=== PATIENT | female | born 1945 | race Caucasian/White ===

== ENCOUNTER → 2017-12-15 02:47 | Outpatient (CLI) | payer MEDICARE, BC, SELFPAY ==
[2017-12-15 10:40] LABS: HCT 38.4 % (36.0-46.0); HGB 12.8 g/dL (12.0-15.5); Mean Corp. HGB Concentration 33.3 g/dL (32.0-36.0); Mean Corpuscular Hemoglobin 30.4 pg (27.0-33.0); Mean Corpuscular Volume 91.2 fL (80-95); Mean Platelet Volume 8.5 fL (8.0-11.0); Platelet Count 352 x1000/uL (130-400); RBC 4.21 m/cumm (4.00-5.20); RBC Distribution Width 13.4 % (11.7-14.6)
[2017-12-15 10:40] LABS: Bilirubin Negative (Negative); Blood Negative (Negative); Clarity Clear; Glucose Negative (Negative); Ketones Negative (Negative); Leukocyte Esterase Negative (Negative); Nitrite Negative (Negative); Specific Gravity 1.015 (1.005-1.025); Urobilinogen 0.2 EU/dL (Up TO 0.2)
[2017-12-15 11:02] LABS: PROTEIN 39.5 mg/dL
[2017-12-15 11:05] LABS: COMMENT (LAB VIEW ONLY) 59.22 mg/dL; Prot/Crea Ur Ratio 0.66
[2017-12-15 11:12] LABS: Cholesterol 175 mg/dL (50-200)
[2017-12-15 11:18] LABS: ALT 22 U/L (12-78); AST 25 U/L (15-37); Albumin 3.5 g/dL (3.4-5.0); Alkaline Phosphatase 68 U/L (46-116); Anion Gap 4.4 mmol/L (3-11); BUN 23 mg/dL (7-18); Bilirubin, Total 0.3 mg/dL (0.2-1.0); CO2 30.6 mmol/L (21.0-32.0); CREATININE 1.03 mg/dL (0.55-1.02); Calcium 9.2 mg/dL (8.5-10.1); Chloride 100 mmol/L (98-107); Estimated GFR 52.82 (mL/min/1.73m2); Glucose 83 mg/dL (70-100); Magnesium 1.4 mg/dL (1.8-2.4); Potassium 4.8 mmol/L (3.5-5.1); Sodium 135 mmol/L (136-145); Total Protein 6.9 g/dL (6.4-8.2); Uric Acid 5.4 mg/dL (2.6-6.0)
[2017-12-15 11:42] LABS: Bacteria Negative HPF (Negative); C & S Indicated? No; Casts Negative LPF (Negative); Crystals Negative HPF (Negative); Epithelial Cells Few HPF (Negative); Mucus Negative (Negative); RBC 0-2 (0-2); WBC 0-2 HPF (0-5)
== END ==
PROVIDERS: PCP Internal Medicine; Visit Provider Internal Medicine Nephrology
DX: Z94.0 Kidney transplant status (principal); Z79.899 Other long term (current) drug therapy
CPT/HCPCS: 36415; 80053; 85027; 80197; 81003; 81015; 82465; 82565; 83735; 84100; 84156; 84550

== ENCOUNTER 2018-01-19 18:40 | Outpatient (REF) | payer MEDICARE, BC, SELFPAY ==
[2018-01-19 19:47] LABS: TSH 0.51 uIU/mL (0.358-3.74)
== END 2018-01-19 19:00 ==
LOC: NCHCN 18:40
PROVIDERS: PCP Internal Medicine; Visit Provider Internal Medicine
DX: E04.0 Nontoxic diffuse goiter (principal); N18.6 End stage renal disease; K50.10 Crohn's disease of large intestine without complications; M54.5 Low back pain
CPT/HCPCS: 84443

== ENCOUNTER 2018-03-22 01:44 | Outpatient (CLI) | payer MEDICARE, BC, SELFPAY ==
[2018-03-22 10:16] LABS: HCT 37.6 % (36.0-46.0); HGB 12.8 g/dL (12.0-15.5); Mean Corpuscular Hemoglobin 30.8 pg (27.0-33.0); Mean Corpuscular Volume 90.6 fL (80-95); Mean Platelet Volume 8.5 fL (8.0-11.0); Platelet Count 317 x1000/uL (130-400); RBC 4.15 m/cumm (4.00-5.20); RBC Distribution Width 13.4 % (11.7-14.6)
[2018-03-22 10:49] LABS: Bilirubin Negative (Negative); Blood Negative (Negative); Clarity Clear; Glucose Negative (Negative); Ketones Negative (Negative); Leukocyte Esterase Trace (Negative); Nitrite Negative (Negative); Urobilinogen 0.2 EU/dL (Up TO 0.2)
[2018-03-22 11:05] LABS: Cholesterol 162 mg/dL (50-200)
[2018-03-22 11:06] LABS: ALT 27 U/L (12-78); AST 29 U/L (15-37); Albumin 3.5 g/dL (3.4-5.0); Alkaline Phosphatase 70 U/L (46-116); Anion Gap 8.5 mmol/L (3-11); BUN 26 mg/dL (7-18); Bilirubin, Total 0.3 mg/dL (0.2-1.0); CO2 29.5 mmol/L (21.0-32.0); CREATININE 0.92 mg/dL (0.55-1.02); Calcium 9.4 mg/dL (8.5-10.1); Chloride 98 mmol/L (98-107); Glucose 84 mg/dL (70-100); Magnesium 1.5 mg/dL (1.8-2.4); PHOSPHORUS 3.5 mg/dL (2.6-4.7); Potassium 5.1 mmol/L (3.5-5.1); Sodium 136 mmol/L (136-145); Total Protein 6.8 g/dL (6.4-8.2); Uric Acid 5.9 mg/dL (2.6-6.0)
[2018-03-22 11:10] LABS: Bacteria Rare HPF (Negative); Casts Negative LPF (Negative); Crystals Negative HPF (Negative); Epithelial Cells Moderate HPF (Negative); Mucus Negative (Negative); Other Cells Rare Renal (Negative); RBC 0-2 (0-2)
[2018-03-22 11:11] LABS: C & S Indicated? No/Sq. Contamination
[2018-03-22 11:51] LABS: PROTEIN 12.5 mg/dL
[2018-03-22 11:57] LABS: COMMENT (LAB VIEW ONLY) 31.33 mg/dL; Prot/Crea Ur Ratio 0.39
[2018-03-23 15:14] LABS: Tacrolimus 7.2 ng/ml
== END 2018-03-22 02:04 ==
PROVIDERS: PCP Internal Medicine; Visit Provider Internal Medicine Nephrology
DX: Z92.0 Personal history of contraception (principal); Z79.899 Other long term (current) drug therapy
CPT/HCPCS: 36415; 80053; 85027; 80197; 81003; 81015; 82465; 82565; 83735; 84100; 84156; 84550

== ENCOUNTER 2018-05-25 01:49 | Outpatient (CLI) | payer MEDICARE, BC, SELFPAY ==
[2018-05-26 13:09] LABS: Tacrolimus 8.8 ng/ml
== END 2018-05-25 02:09 ==
PROVIDERS: PCP Internal Medicine; Visit Provider Internal Medicine Nephrology
DX: Z94.0 Kidney transplant status (principal); Z79.899 Other long term (current) drug therapy
CPT/HCPCS: 36415; 80197

== ENCOUNTER 2018-06-01 02:31 | Outpatient (CLI) | payer MEDICARE, BC, SELFPAY ==
[2018-06-02 13:25] LABS: Tacrolimus 10.6 ng/ml
== END 2018-06-01 02:51 ==
PROVIDERS: PCP Internal Medicine; Visit Provider Internal Medicine Nephrology
DX: Z94.0 Kidney transplant status (principal); Z79.899 Other long term (current) drug therapy
CPT/HCPCS: 36415; 80197

== ENCOUNTER 2018-06-15 00:58 | Outpatient (CLI) | payer MEDICARE, BC, SELFPAY ==
[2018-06-16 13:15] LABS: Tacrolimus 8.8 ng/ml
== END 2018-06-15 01:18 ==
PROVIDERS: PCP Internal Medicine; Visit Provider Internal Medicine Nephrology
DX: Z94.0 Kidney transplant status (principal); Z79.899 Other long term (current) drug therapy
CPT/HCPCS: 36415; 80197

== ENCOUNTER 2018-07-06 02:06 | Outpatient (CLI) | payer MEDICARE, BC, SELFPAY | END 2018-07-06 02:26 | PROVIDERS: PCP Internal Medicine; Visit Provider Internal Medicine Nephrology | DX: Z94.0 Kidney transplant status (principal); Z79.899 Other long term (current) drug therapy | CPT/HCPCS: 36415; 80197 ==

== ENCOUNTER 2018-07-21 02:00 | Outpatient (CLI) | payer MEDICARE, BC, SELFPAY ==
[2018-07-22 12:11] LABS: Tacrolimus 4.6 ng/ml
== END 2018-07-21 02:20 ==
PROVIDERS: PCP Internal Medicine; Visit Provider Internal Medicine Nephrology
DX: Z94.0 Kidney transplant status (principal); Z79.899 Other long term (current) drug therapy
CPT/HCPCS: 36415; 80197

== ENCOUNTER 2018-08-07 01:46 | Outpatient (CLI) | payer MEDICARE, BC, SELFPAY ==
[2018-08-07 09:16] LABS: HCT 38.2 % (36.0-46.0); HGB 12.9 g/dL (12.0-15.5); Mean Corp. HGB Concentration 33.8 g/dL (32.0-36.0); Mean Corpuscular Hemoglobin 31.2 pg (27.0-33.0); Mean Corpuscular Volume 92.3 fL (80-95); Mean Platelet Volume 8.4 fL (8.0-11.0); Platelet Count 324 x1000/uL (130-400); RBC 4.14 m/cumm (4.00-5.20); RBC Distribution Width 14.1 % (11.7-14.6); White Blood Cell Count 6.12 k/cumm (4.4-10.8)
[2018-08-07 10:34] LABS: ALT 33 U/L (12-78); AST 30 U/L (15-37); Albumin 3.5 g/dL (3.4-5.0); Alkaline Phosphatase 67 U/L (46-116); Anion Gap 9.9 mmol/L (3-11); BUN 23 mg/dL (7-18); Bilirubin, Total 0.6 mg/dL (0.2-1.0); CO2 28.1 mmol/L (21.0-32.0); CREATININE 0.94 mg/dL (0.55-1.02); Chloride 101 mmol/L (98-107); Estimated GFR 58.53 (mL/min/1.73m2); Glucose 72 mg/dL (70-100); Magnesium 1.4 mg/dL (1.8-2.4); PHOSPHORUS 3.6 mg/dL (2.6-4.7); Sodium 139 mmol/L (136-145); Total Protein 6.8 g/dL (6.4-8.2); Uric Acid 5.2 mg/dL (2.6-6.0)
[2018-08-07 13:13] LABS: COMMENT (LAB VIEW ONLY) 19.15 mg/dL; PROTEIN 21.3 mg/dL; Prot/Crea Ur Ratio 1.11
[2018-08-07 13:15] LABS: Cholesterol 209 mg/dL (50-200)
[2018-08-07 15:08] LABS: Bilirubin Negative (Negative); Blood Negative (Negative); Clarity Clear; Glucose Negative (Negative); Ketones Negative (Negative); Leukocyte Esterase Negative (Negative); Nitrite Negative (Negative); Specific Gravity 1.015 (1.005-1.025); Urobilinogen 0.2 EU/dL (Up TO 0.2); pH 7.5 (5-8)
[2018-08-07 15:23] LABS: Bacteria Negative HPF (Negative); C & S Indicated? No; Casts Negative LPF (Negative); Crystals Negative HPF (Negative); Epithelial Cells Few HPF (Negative); Mucus Negative (Negative); RBC 0-2 (0-2); WBC 0-2 HPF (0-5)
[2018-08-08 12:50] LABS: Tacrolimus 5.2 ng/ml
== END 2018-08-07 02:06 ==
PROVIDERS: PCP Internal Medicine; Visit Provider Internal Medicine Nephrology
DX: Z94.0 Kidney transplant status (principal); Z79.899 Other long term (current) drug therapy
CPT/HCPCS: 36415; 80053; 85027; 80197; 81003; 81015; 82465; 82565; 83735; 84100; 84156; 84550

== ENCOUNTER 2018-08-21 11:26 | Outpatient (REF) | payer MEDICARE, BC, SELFPAY ==
--- NOTE | 2018-08-21 10:30 | PAPFT_PTH ---
PATIENT: Sonam Herring LOC: [facility] U#:[id number] AGE/SX: 73/F ROOM: RE08/21/[address]: MARCI Tolentino : 1945 BED: DIS: 08/21/2018 SPEC #: [id number] RECD: 08/21/18 17:30 STATUS: ALEXUS REQ #: [id number] RACHANA: 08/21/18 10:[address]: Kelley Kuhn DEPT: [facility] Cytology RECD BY: Sidra Merrill ENTERED: 08/21/18 17:31 SP TYPE: PAPFT OTHR DR: Missael Ordaz Tissues: 1 - CX/ENDOCX FOR PAP SMEARS Procedures: PAP THIN PREP/UVM Screening Comments: [id number]
== END 2018-08-21 11:46 ==
LOC: LBN 11:26
PROVIDERS: PCP Internal Medicine; Visit Provider Nurse Practitioner Family
DX: Z12.4 Encounter for screening for malignant neoplasm of cervix (principal)
CPT/HCPCS: 88142

== ENCOUNTER 2018-09-04 00:23 | Outpatient (CLI) | payer MEDICARE, BC, SELFPAY ==
--- NOTE | 2018-09-04 09:00 | DI.MAMMO_ITS ---
SYMPTOM/DIAGNOSIS: SCREENING MAMMOGRAMS: Mammograms were interpreted according to the usual protocol including computer analysis with CAD system, tomosynthesis and C view imaging. Comparison is made with exams from 3611-9983. The breasts are composed of fatty density tissue, breast density, Category A. No suspicious masses or suspicious microcalcifications are seen. There has been no significant change. IMPRESSION: Category 1, negative mammogram. Yearly screening mammography is recommended. [facility] ASSESSMENT OF FINDINGS: Negative. Category 1. Patient will receive a letter notifying them of these results. BI-RAD category A. The breasts are almost entirely fatty.
== END 2018-09-04 00:43 ==
PROVIDERS: PCP Internal Medicine; Visit Provider Nurse Practitioner Family
DX: Z12.31 Encounter for screening mammogram for malignant neoplasm of breast (principal)
CPT/HCPCS: 77063; 77067

== ENCOUNTER 2018-10-09 15:08 | Outpatient (REF) | payer MEDICARE, BC, SELFPAY | END 2018-10-09 15:28 | LOC: NCHCN 15:08 | PROVIDERS: PCP Internal Medicine; Visit Provider Nurse Practitioner Family | DX: N39.0 Urinary tract infection, site not specified (principal) | CPT/HCPCS: 87086 ==

== ENCOUNTER 2018-11-09 01:59 | Outpatient (CLI) | payer MEDICARE, BC, SELFPAY ==
[2018-11-09 10:32] LABS: HCT 39.4 % (36.0-46.0); HGB 13.5 g/dL (12.0-15.5); Mean Corp. HGB Concentration 34.3 g/dL (32.0-36.0); Mean Corpuscular Hemoglobin 31.1 pg (27.0-33.0); Mean Corpuscular Volume 90.8 fL (80-95); Mean Platelet Volume 8.6 fL (8.0-11.0); Platelet Count 303 x1000/uL (130-400); RBC 4.34 m/cumm (4.00-5.20); RBC Distribution Width 13.9 % (11.7-14.6); White Blood Cell Count 7.24 k/cumm (4.4-10.8)
[2018-11-09 10:34] LABS: Bilirubin Negative (Negative); Blood Negative (Negative); Clarity Clear (Clear); Glucose Negative (Negative); Ketones Negative (Negative); Leukocyte Esterase Trace (Negative); Nitrite Negative (Negative); Urobilinogen 0.2 EU/dL (Up TO 0.2)
[2018-11-09 10:45] LABS: Bacteria Few HPF (Negative); Casts Negative LPF (Negative); Crystals Negative HPF (Negative); Epithelial Cells Many HPF (Negative); Mucus Negative (Negative); RBC Negative (0-2)
[2018-11-09 10:46] LABS: C & S Indicated? No/Sq. Contamination
[2018-11-09 11:00] LABS: PROTEIN 19.3 mg/dL
[2018-11-09 11:02] LABS: COMMENT (LAB VIEW ONLY) 29.13 mg/dL; Prot/Crea Ur Ratio 0.66
[2018-11-09 11:29] LABS: Cholesterol 206 mg/dL (50-200)
[2018-11-09 11:31] LABS: ALT 27 U/L (12-78); AST 21 U/L (15-37); Albumin 3.7 g/dL (3.4-5.0); Alkaline Phosphatase 58 U/L (46-116); Anion Gap 8.8 mmol/L (3-11); BUN 21 mg/dL (7-18); Bilirubin, Total 0.4 mg/dL (0.2-1.0); CO2 29.2 mmol/L (21.0-32.0); CREATININE 0.95 mg/dL (0.55-1.02); Calcium 9.8 mg/dL (8.5-10.1); Chloride 97 mmol/L (98-107); Estimated GFR 57.82 (mL/min/1.73m2); Glucose 86 mg/dL (70-100); Magnesium 1.6 mg/dL (1.8-2.4); PHOSPHORUS 3.5 mg/dL (2.6-4.7); Potassium 4.6 mmol/L (3.5-5.1); Sodium 135 mmol/L (136-145); Total Protein 7.1 g/dL (6.4-8.2); Uric Acid 4.9 mg/dL (2.6-6.0)
[2018-11-09 11:39] LABS: FREE T4 1.07 ng/dL (0.76-1.46); TSH 5.06 uIU/mL (0.358-3.74)
[2018-11-10 13:47] LABS: Tacrolimus 5.1 ng/ml
== END 2018-11-09 02:19 ==
PROVIDERS: PCP Internal Medicine; Visit Provider Internal Medicine Nephrology
DX: Z94.0 Kidney transplant status (principal); Z79.899 Other long term (current) drug therapy; E04.8 Other specified nontoxic goiter
CPT/HCPCS: 36415; 80053; 80197; 85027; 81003; 81015; 82465; 82565; 83735; 84100; 84156; 84439; 84443; 84550

== ENCOUNTER 2019-02-08 01:18 | Outpatient (CLI) | payer MEDICARE, BC, SELFPAY ==
[2019-02-08 10:25] LABS: HGB 13.4 g/dL (12.0-15.5); Mean Corp. HGB Concentration 34.4 g/dL (32.0-36.0); Mean Corpuscular Hemoglobin 31.2 pg (27.0-33.0); Mean Corpuscular Volume 90.9 fL (80-95); Mean Platelet Volume 8.4 fL (8.0-11.0); Platelet Count 341 x1000/uL (130-400); RBC 4.29 m/cumm (4.00-5.20); White Blood Cell Count 6.06 k/cumm (4.4-10.8)
[2019-02-08 10:51] LABS: Bilirubin Negative (Negative); Blood Negative (Negative); Clarity Clear (Clear); Glucose Negative (Negative); Ketones Negative (Negative); Leukocyte Esterase Negative (Negative); Nitrite Negative (Negative); Specific Gravity 1.015 (1.005-1.025); Urobilinogen 0.2 EU/dL (Up TO 0.2); pH 7.5 (5-8)
[2019-02-08 11:43] LABS: Epithelial Cells Few HPF (Negative); RBC 0-2 (0-2); WBC Negative HPF (0-5)
[2019-02-08 11:44] LABS: Bacteria Negative HPF (Negative); C & S Indicated? No; Casts Negative LPF (Negative); Crystals Negative HPF (Negative); Mucus Negative (Negative); Other Cells Rare Renal (Negative)
[2019-02-08 11:46] LABS: PROTEIN 22.3 mg/dL
[2019-02-08 11:49] LABS: ALT 24 U/L (14-59); AST 25 U/L (15-37); Albumin 3.6 g/dL (3.4-5.0); Alkaline Phosphatase 62 U/L (46-116); Anion Gap 6.1 mmol/L (3-11); BUN 23 mg/dL (7-18); Bilirubin, Total 0.4 mg/dL (0.2-1.0); CO2 28.9 mmol/L (21.0-32.0); CREATININE 1.01 mg/dL (0.55-1.02); Calcium 9.2 mg/dL (8.5-10.1); Chloride 101 mmol/L (98-107); Estimated GFR 53.88 (mL/min/1.73m2); Glucose 74 mg/dL (70-100); Magnesium 1.6 mg/dL (1.8-2.4); PHOSPHORUS 3.6 mg/dL (2.6-4.7); Potassium 5.4 mmol/L (3.5-5.1); Sodium 136 mmol/L (136-145); Total Protein 6.8 g/dL (6.4-8.2); Uric Acid 5.1 mg/dL (2.6-6.0)
[2019-02-08 11:52] LABS: COMMENT (LAB VIEW ONLY) 31.87 mg/dL; Prot/Crea Ur Ratio 0.69
[2019-02-08 12:14] LABS: Cholesterol 200 mg/dL (50-200)
[2019-02-09 13:00] LABS: Tacrolimus 5.1 ng/ml
== END 2019-02-08 01:38 ==
PROVIDERS: PCP Internal Medicine; Visit Provider Internal Medicine Nephrology
DX: Z94.0 Kidney transplant status (principal); Z79.899 Other long term (current) drug therapy
CPT/HCPCS: 36415; 80053; 85027; 80197; 81003; 81015; 82465; 82565; 83735; 84100; 84156; 84550

== ENCOUNTER 2019-02-28 16:20 | Outpatient (REF) | payer MEDICARE, BC, SELFPAY | END 2019-02-28 16:40 | LOC: NCHCN 16:20 | PROVIDERS: PCP Internal Medicine; Visit Provider Internal Medicine | DX: N30.00 Acute cystitis without hematuria (principal) | CPT/HCPCS: 87077; 87086; 87186 ==

== ENCOUNTER 2019-08-23 12:28 | Outpatient (REF) | payer MEDICARE, BC, SELFPAY ==
--- NOTE | 2019-08-23 11:30 | PAPFT_PTH ---
PATIENT: Sonam Herring LOC: [facility] U#:[id number] AGE/SX: 74/F ROOM: RE08/23/[address]: MARCI Tolentino : 1945 BED: DIS: 08/23/2019 SPEC #: [id number] RECD: 08/23/19 15:40 STATUS: ALEXUS RESoila #: [id number] RACHANA: 08/23/19 11:[address]: Kelley Kuhn DEPT: [facility] Cytology RECD BY: Juan Leach ENTERED: 08/23/19 15:42 SP TYPE: PAPFT OTHR DR: Missael Ordaz Tissues: 1 - CX/ENDOCX FOR PAP SMEARS Procedures: PAP THIN PREP/UVM Screening HPV DNA PROBE Comments: [id number]
== END 2019-08-23 12:48 ==
LOC: LBN 12:28
PROVIDERS: PCP Internal Medicine; Visit Provider Nurse Practitioner Family
DX: Z12.4 Encounter for screening for malignant neoplasm of cervix (principal)
CPT/HCPCS: 88142; 87624

== ENCOUNTER 2019-09-20 02:43 | Outpatient (CLI) | payer MEDICARE, BC, SELFPAY ==
--- NOTE | 2019-09-20 11:00 | DI.MAMMO_ITS ---
EXAM: MAMMO SCREENING CLINICAL HISTORY: screening,Z12.39 TECHNIQUE: Mammograms were interpreted according to the usual protocol including computer analysis w [employer] CAD system, tomosynthesis and C-view imaging. COMPARISON: 2010 through 2018 FINDINGS: The breasts are composed of mainly fatty density , Breast Density category A. No suspicious masses or suspicious microcalcifications are seen. No skin thickening or abnormal axillary lymph nodes are seen. There has been no significant change from prior exams. IMPRESSION: BI-RADS category 1, negative. Yearly screening mammography is recommended. Breast Density - Category A - Almost entirely fatty
== END 2019-09-20 03:03 ==
PROVIDERS: PCP Internal Medicine; Visit Provider Nurse Practitioner Family
DX: Z12.31 Encounter for screening mammogram for malignant neoplasm of breast (principal)
CPT/HCPCS: 77063; 77067

== ENCOUNTER 2019-10-04 13:53 | Outpatient (REF) | payer MEDICARE, BC, SELFPAY | END 2019-10-04 14:13 | LOC: NCHCN 13:53 | PROVIDERS: PCP Internal Medicine; Visit Provider Physician Assistant | DX: N30.00 Acute cystitis without hematuria (principal) | CPT/HCPCS: 87077; 87086; 87186 ==

== ENCOUNTER 2019-11-20 19:40 | Outpatient (REF) | payer MEDICARE, BC, SELFPAY ==
[2019-11-20 20:19] LABS: HCT 41.7 % (36.0-46.0); HGB 14.1 g/dL (11.2-15.7); MCH 31.1 pg (27.0-33.0); MCHC 33.8 % (32.0-36.0); MCV 91.9 fL (80-95); MPV 9.1 fL (8.0-11.0); Platelet Count 315 10^3/uL (130-400); RBC 4.54 10^6/uL (3.93-5.22); RDW 13.6 % (11.7-14.6); RDW-SD 46.2 fL; WBC 7.03 10^3/uL (4.4-10.8)
[2019-11-20 20:22] LABS: Bilirubin Negative (Negative); Blood Negative (Negative); Clarity Clear (Clear); Glucose Negative (Negative); Ketones Negative (Negative); Leukocyte Esterase Trace (Negative); Nitrite Negative (Negative); Specific Gravity 1.015 (1.005-1.025); Urobilinogen 0.2 EU/dL (Up TO 0.2)
[2019-11-20 20:30] LABS: ALT 26 U/L (14-59); AST 27 U/L (15-37); Albumin 3.7 g/dL (3.4-5.0); Alkaline Phosphatase 61 U/L (46-116); Anion Gap 6.2 mmol/L (3-11); BUN 25 mg/dL (7-18); Bilirubin, Total 0.5 mg/dL (0.2-1.0); CO2 29.8 mmol/L (21.0-32.0); CREATININE 1.09 mg/dL (0.55-1.02); Calcium 9.5 mg/dL (8.5-10.1); Chloride 99 mmol/L (98-107); Glucose 84 mg/dL (74-106); Magnesium 1.6 mg/dL (1.8-2.4); PHOSPHORUS 3.7 mg/dL (2.6-4.7); Potassium 4.3 mmol/L (3.5-5.1); Sodium 135 mmol/L (136-145); Total Protein 6.9 g/dL (6.4-8.2); Uric Acid 5.3 mg/dL (2.6-6.0)
[2019-11-20 20:35] LABS: PROTEIN 44.6 mg/dL
[2019-11-20 20:36] LABS: COMMENT (LAB VIEW ONLY) 45.96 mg/dL; Prot/Crea Ur Ratio 0.97
[2019-11-20 20:42] LABS: Cholesterol 211 mg/dL (<200)
[2019-11-20 22:21] LABS: Bacteria Few HPF (Negative); C & S Indicated? No; Casts Negative LPF (Negative); Crystals Negative HPF (Negative); Epithelial Cells Few HPF (Negative); Mucus Negative (Negative); Other Cells Rare Renal (Negative); RBC Negative HPF (0-2)
[2019-11-22 11:33] LABS: Tacrolimus 5.7 ng/mL (See Note)
== END 2019-11-20 20:00 ==
LOC: LBN 19:40
PROVIDERS: PCP Internal Medicine; Visit Provider Internal Medicine Nephrology
DX: Z94.0 Kidney transplant status (principal); Z79.899 Other long term (current) drug therapy
CPT/HCPCS: 80053; 85027; 80197; 81003; 81015; 82465; 82565; 83735; 84100; 84156; 84550

== ENCOUNTER 2020-01-15 18:23 | Outpatient (REF) | payer MEDICARE, BC, SELFPAY | END 2020-01-15 18:43 | LOC: NCHCN 18:23 | PROVIDERS: PCP Internal Medicine; Visit Provider Physician Assistant | DX: N30.00 Acute cystitis without hematuria (principal) | CPT/HCPCS: 87077; 87086; 87186 ==

== ENCOUNTER 2020-02-12 10:46 | Outpatient (REF) | payer MEDICARE, BC, SELFPAY ==
[2020-02-12 19:15] LABS: Bilirubin Negative (Negative); Blood Negative (Negative); Clarity Clear (Clear); Glucose Negative (Negative); Ketones Negative (Negative); Leukocyte Esterase Trace (Negative); Nitrite Negative (Negative); Urobilinogen 0.2 EU/dL (Up TO 0.2); pH 7.5 (5-8)
[2020-02-12 19:19] LABS: HCT 39.5 % (36.0-46.0); HGB 13.1 g/dL (11.2-15.7); MCH 30.3 pg (27.0-33.0); MCHC 33.2 % (32.0-36.0); MCV 91.4 fL (80-95); MPV 8.3 fL (8.0-11.0); Platelet Count 428 10^3/uL (130-400); RBC 4.32 10^6/uL (3.93-5.22); RDW 13.6 % (11.7-14.6); WBC 5.66 10^3/uL (4.4-10.8)
[2020-02-12 19:27] LABS: Bacteria Moderate HPF (Negative); C & S Indicated? No/Sq. Contamination; Casts Negative LPF (Negative); Crystals Negative HPF (Negative); Epithelial Cells Many HPF (Negative); Mucus Negative (Negative); RBC 0-2 HPF (0-2)
[2020-02-12 19:37] LABS: PROTEIN 79.5 mg/dL
[2020-02-12 19:41] LABS: Cholesterol 205 mg/dL (<200)
[2020-02-12 19:46] LABS: ALT 24 U/L (14-59); AST 24 U/L (15-37); Albumin 3.4 g/dL (3.4-5.0); Alkaline Phosphatase 76 U/L (46-116); Anion Gap 5.1 mmol/L (3-11); BUN 18 mg/dL (7-18); Bilirubin, Total 0.4 mg/dL (0.2-1.0); CO2 30.9 mmol/L (21.0-32.0); CREATININE 1.06 mg/dL (0.55-1.02); Calcium 9.7 mg/dL (8.5-10.1); Chloride 101 mmol/L (98-107); Estimated GFR 50.81 (mL/min/1.73m2); Glucose 73 mg/dL (74-106); Magnesium 1.8 mg/dL (1.8-2.4); PHOSPHORUS 3.6 mg/dL (2.6-4.7); Potassium 5.1 mmol/L (3.5-5.1); Sodium 137 mmol/L (136-145); Uric Acid 5.5 mg/dL (2.6-6.0)
[2020-02-12 20:07] LABS: COMMENT (LAB VIEW ONLY) 54.08 mg/dL; Prot/Crea Ur Ratio 1.47
[2020-02-14 13:12] LABS: Tacrolimus 3.2 ng/mL (See Note)
== END 2020-02-12 11:06 ==
LOC: NCHCN 10:46
PROVIDERS: PCP Internal Medicine; Visit Provider Internal Medicine Nephrology
DX: Z94.0 Kidney transplant status (principal); Z79.899 Other long term (current) drug therapy; Z29.8 Encounter for other specified prophylactic measures
CPT/HCPCS: 80053; 85027; 80197; 81003; 81015; 82465; 82565; 83735; 84100; 84156; 84550

== ENCOUNTER 2020-05-07 04:49 | Outpatient (CLI) | payer MEDICARE, BC, SELFPAY ==
[2020-05-07 08:43] LABS: HCT 41.6 % (36.0-46.0); MCH 30.6 pg (27.0-33.0); MCHC 33.7 % (32.0-36.0); MCV 90.8 fL (80-95); MPV 8.2 fL (8.0-11.0); Platelet Count 299 10^3/uL (130-400); RBC 4.58 10^6/uL (3.93-5.22); RDW 14.6 % (11.7-14.6); RDW-SD 48.5 fL; Reticulocyte 1.3 % (0.5-2.4); WBC 6.14 10^3/uL (4.4-10.8)
[2020-05-07 09:40] LABS: Bilirubin Negative (Negative); Blood Negative (Negative); Clarity Clear (Clear); Glucose Negative (Negative); Ketones Negative (Negative); Leukocyte Esterase Negative (Negative); Nitrite Negative (Negative); Specific Gravity 1.015 (1.005-1.025); Urobilinogen 0.2 EU/dL (Up TO 0.2)
[2020-05-07 09:52] LABS: Bacteria Rare HPF (Negative); C & S Indicated? No; Casts Negative LPF (Negative); Crystals Negative HPF (Negative); Epithelial Cells Few HPF (Negative); Mucus Negative (Negative); Other Cells Negative (Negative); WBC 0-2 HPF (0-5)
[2020-05-07 10:09] LABS: Creatinine,Urine 26.27 mg/dL
[2020-05-07 10:10] LABS: PROTEIN 47.2 mg/dL
[2020-05-07 10:13] LABS: COMMENT (LAB VIEW ONLY) 28.48 mg/dL; Prot/Crea Ur Ratio 1.65
[2020-05-07 10:21] LABS: ALT 22 U/L (14-59); AST 21 U/L (15-37); Albumin 3.6 g/dL (3.4-5.0); Alkaline Phosphatase 62 U/L (46-116); Anion Gap 6.9 mmol/L (3-11); BUN 19 mg/dL (7-18); Bilirubin, Total 0.5 mg/dL (0.2-1.0); CO2 30.1 mmol/L (21.0-32.0); CREATININE 1.15 mg/dL (0.55-1.02); Calcium 9.5 mg/dL (8.5-10.1); Chloride 100 mmol/L (98-107); Estimated GFR 46.13 (mL/min/1.73m2); Glucose 79 mg/dL (74-106); Magnesium 1.6 mg/dL (1.8-2.4); PHOSPHORUS 3.5 mg/dL (2.6-4.7); Potassium 4.7 mmol/L (3.5-5.1); Sodium 137 mmol/L (136-145); Total Protein 6.9 g/dL (6.4-8.2); Uric Acid 5.2 mg/dL (2.6-6.0)
[2020-05-07 10:39] LABS: Calculated LDL 111 mg/dL (<100); Cholesterol 204 mg/dL (<200); HDL Cholesterol 71 mg/dL (40-60); Triglyceride 112 mg/dL (<150)
[2020-05-07 12:47] LABS: Hemoglobin A1C 5.5 % (<5.7)
[2020-05-08 08:54] LABS: Phosphorus Urine 7.2 mg/dL (See Note)
[2020-05-08 09:00] LABS: Magnesium Random Urine 5.4 mg/dL (See Note)
[2020-05-08 09:02] LABS: Parathyroid Hormone,Intact 79 pg/mL (19-88)
[2020-05-08 11:47] LABS: Calcium, Random Ur 8 mg/dL; Creatinine, Random Ur 28 mg/dL
[2020-05-08 13:41] LABS: Tacrolimus 6.1 ng/mL (See Note)
[2020-05-09 12:40] LABS: 25-Hydroxy D Total 53 ng/mL; 25-Hydroxy D2 <4.0 ng/mL; 25-Hydroxy D3 53 ng/mL
[2020-05-09 17:04] LABS: 1,25-Dihydroxyvitamin D 26 pg/mL (18-78)
== END 2020-05-07 05:09 ==
PROVIDERS: PCP Internal Medicine; Visit Provider Internal Medicine Nephrology
DX: E55.9 Vitamin D deficiency, unspecified (principal); Z94.0 Kidney transplant status; Z79.899 Other long term (current) drug therapy; Z29.8 Encounter for other specified prophylactic measures; Z51.81 Encounter for therapeutic drug level monitoring
CPT/HCPCS: 36415; 80053; 80061; 82306; 82310; 83735; 85027; 80197; 81003; 81015; 82565; 82652; 83036; 83970; 84100; 84105; 84156; 84550; 85045

== ENCOUNTER 2020-08-21 02:02 | Outpatient (CLI) | payer MEDICARE, BC, SELFPAY ==
[2020-08-21 12:40] LABS: HCT 40.9 % (36.0-46.0); HGB 13.7 g/dL (11.2-15.7); MCH 30.9 pg (27.0-33.0); MCHC 33.5 % (32.0-36.0); MCV 92.3 fL (80-95); MPV 8.8 fL (8.0-11.0); Platelet Count 297 10^3/uL (130-400); RBC 4.43 10^6/uL (3.93-5.22); RDW 13.8 % (11.7-14.6); RDW-SD 47.4 fL; WBC 7.08 10^3/uL (4.4-10.8)
[2020-08-21 12:48] LABS: Bilirubin Negative (Negative); Blood Negative (Negative); Clarity Clear (Clear); Glucose Negative (Negative); Ketones Negative (Negative); Leukocyte Esterase Negative (Negative); Nitrite Negative (Negative); Specific Gravity 1.015 (1.005-1.025); Urobilinogen 0.2 EU/dL (Up TO 0.2)
[2020-08-21 12:52] LABS: ALT 27 U/L (14-59); AST 24 U/L (15-37); Albumin 3.7 g/dL (3.4-5.0); Alkaline Phosphatase 72 U/L (46-116); Anion Gap 8.5 mmol/L (3-11); BUN 19 mg/dL (7-18); Bilirubin, Total 0.5 mg/dL (0.2-1.0); CO2 29.5 mmol/L (21.0-32.0); CREATININE 1.1 mg/dL (0.55-1.02); Calcium 9.6 mg/dL (8.5-10.1); Chloride 97 mmol/L (98-107); Estimated GFR 48.55 (mL/min/1.73m2); Glucose 81 mg/dL (74-106); Magnesium 1.5 mg/dL (1.8-2.4); PHOSPHORUS 3.3 mg/dL (2.6-4.7); Sodium 135 mmol/L (136-145); Total Protein 6.9 g/dL (6.4-8.2); Uric Acid 4.2 mg/dL (2.6-6.0)
[2020-08-21 12:57] LABS: Cholesterol 196 mg/dL (<200)
[2020-08-21 12:59] LABS: RBC 0-2 HPF (0-2)
[2020-08-21 13:00] LABS: Bacteria Negative HPF (Negative); C & S Indicated? No; Casts Negative LPF (Negative); Crystals Negative HPF (Negative); Epithelial Cells Few HPF (Negative); Mucus Negative (Negative)
[2020-08-21 13:45] LABS: COMMENT (LAB VIEW ONLY) 16.87 mg/dL; PROTEIN 31.4 mg/dL; Prot/Crea Ur Ratio 1.86
== END 2020-08-21 02:03 | disposition home or self-care (01) ==
LOC: LOS 02:02
PROVIDERS: PCP Internal Medicine; Visit Provider Internal Medicine Nephrology
DX: Z94.0 Kidney transplant status (principal); Z79.899 Other long term (current) drug therapy; Z29.8 Encounter for other specified prophylactic measures
CPT/HCPCS: 36415; 80053; 85027; 80197; 81003; 81015; 82465; 82565; 83735; 84100; 84156; 84550

== ENCOUNTER 2020-09-29 02:26 | Outpatient (CLI) | payer MEDICARE, BC, SELFPAY ==
--- NOTE | 2020-09-29 | DI.MAMMO_ITS ---
Exam(s) MAMMO SCREENING EXAM: MAMMO SCREENING CLINICAL HISTORY: SCREENING TECHNIQUE: Bilateral full field digital CC and MLO mammographic images were obtained with 3D tomosyn thesis and utilizing computer aided detection (CAD). COMPARISON: Available for comparison. FINDINGS: Masses/Architectural Distortion: None seen. Microcalcifications: No suspicious pleomorphic-type are seen. Skin Thickening/Nipple Retraction: None. IMPRESSION: 1. No significant interval change with no specific features of malignancy noted. 2. Unless there is more urgent need, screening mammography is recommended, as per [place] guidelines. BI-RADS Category 1 - Negative Breast Density - Category A - Almost entirely fatty Breast density category C or D implies that the patient has dense breast tissue. Dense breast tissue is very common and is not abnormal but dense breast tissue can make it harder to find cancer on a ma mmogram. Also, dense breast tissue may increase their breast cancer risk. This information about the result of the mammogram report was provided to the patient to raise their awareness. Use this report when you speak with the patient about their risks for breast cancer, which includes their family hist ory. At that time, you may recommend for more screening tests (Ultrasound or MRI) as they might be us eful based on their risk. A negative radiographic report should not delay biopsy if a dominant or clinically suspicious mass is present. Up to ten percent of cancers are not identified on mammography. A negative report may reinforce clinical impression. Adenosis and dense breasts may obscure an underlying neoplasm. False positive reports average 6 to 10%. Patient will receive a letter notifying them of these results.
== END 2020-09-29 02:46 ==
PROVIDERS: PCP Internal Medicine; Visit Provider Internal Medicine
DX: Z12.31 Encounter for screening mammogram for malignant neoplasm of breast (principal)
CPT/HCPCS: 77063; 77067

== ENCOUNTER 2020-10-06 15:22 | Outpatient (REF) | payer MEDICARE, BC, SELFPAY ==
--- NOTE | 2020-10-06 14:30 | PAPFT_PTH ---
PATIENT: Sonam eHrring LOC: [facility] U#:[id number] AGE/SX: 75/F ROOM: RE10/06/[address]: MARCI Tolentino : 1945 BED: DIS: 10/06/2020 SPEC #: [id number] RECD: 10/06/20 17:52 STATUS: ALEXUS REQ #: [id number] RACHANA: 10/06/20 14:[address]: Kelley Kuhn [facility] Cytology RECD BY: Sidra Merrill ENTERED: 10/06/20 17:52 SP TYPE: PAPFT OTHR DR: Missael Ordaz Tissues: 1 - CX/ENDOCX FOR PAP SMEARS Procedures: PAP THIN PREP/UVM Screening HPV DNA PROBE Comments: [id number]
== END 2020-10-06 15:23 | disposition home or self-care (01) ==
LOC: LBN 15:22
PROVIDERS: PCP Internal Medicine; Visit Provider Nurse Practitioner Family
DX: Z12.4 Encounter for screening for malignant neoplasm of cervix (principal); Z11.51 Encounter for screening for human papillomavirus (HPV); Z01.419 Encounter for gynecological examination (general) (routine) without abnormal findings
CPT/HCPCS: 88142; 87624

== ENCOUNTER 2020-10-13 12:49 | Outpatient (REF) | payer MEDICARE, BC, SELFPAY | END 2020-10-13 12:50 | disposition home or self-care (01) | LOC: NCHCN 12:49 | PROVIDERS: PCP Internal Medicine; Visit Provider Nurse Practitioner Family | DX: N30.00 Acute cystitis without hematuria (principal) | CPT/HCPCS: 87077; 87086; 87186 ==

== ENCOUNTER 2020-11-19 08:45 | Outpatient (CLI) | payer MEDICARE, BC, SELFPAY ==
[2020-11-19 12:22] LABS: HCT 40.7 % (36.0-46.0); HGB 13.5 g/dL (11.2-15.7); MCH 30.9 pg (27.0-33.0); MCHC 33.2 % (32.0-36.0); MCV 93.1 fL (80-95); MPV 8.6 fL (8.0-11.0); Platelet Count 292 10^3/uL (130-400); RBC 4.37 10^6/uL (3.93-5.22); RDW 13.7 % (11.7-14.6); RDW-SD 47.2 fL; WBC 6.72 10^3/uL (4.4-10.8)
[2020-11-19 12:34] LABS: Bilirubin Negative (Negative); Blood Negative (Negative); Clarity Clear (Clear); Glucose Negative (Negative); Ketones Negative (Negative); Leukocyte Esterase Negative (Negative); Nitrite Negative (Negative); Urobilinogen 0.2 EU/dL (Up TO 0.2)
[2020-11-19 12:46] LABS: Bacteria Negative HPF (Negative); C & S Indicated? No; Casts 0-2 Hyaline LPF (Negative); Crystals Negative HPF (Negative); Epithelial Cells Rare HPF (Negative); Mucus Negative (Negative); RBC Negative HPF (0-2); WBC Negative HPF (0-5)
[2020-11-19 12:56] LABS: ALT 25 U/L (14-59); AST 23 U/L (15-37); Albumin 3.5 g/dL (3.4-5.0); Alkaline Phosphatase 60 U/L (46-116); Anion Gap 7.5 mmol/L (3-11); BUN 19 mg/dL (7-18); Bilirubin, Total 0.6 mg/dL (0.2-1.0); CO2 28.5 mmol/L (21.0-32.0); CREATININE 1.1 mg/dL (0.55-1.02); Calcium 9.3 mg/dL (8.5-10.1); Chloride 99 mmol/L (98-107); Estimated GFR 48.55 (mL/min/1.73m2); Glucose 61 mg/dL (74-106); Magnesium 1.4 mg/dL (1.8-2.4); PHOSPHORUS 3.3 mg/dL (2.6-4.7); Potassium 4.5 mmol/L (3.5-5.1); Sodium 135 mmol/L (136-145); Total Protein 6.5 g/dL (6.4-8.2); Uric Acid 5.4 mg/dL (2.6-6.0)
[2020-11-19 13:00] LABS: Cholesterol 192 mg/dL (<200)
[2020-11-19 13:56] LABS: PROTEIN 21.4 mg/dL
[2020-11-19 14:33] LABS: Prot/Crea Ur Ratio 0.58
[2020-11-20 13:15] LABS: Tacrolimus 5.8 ng/mL (See Note)
[2020-11-20 15:25] LABS: Albumin 60.7 % (55.8-66.1); Total Protein 6.5 g/dL (6.3-8.2)
== END 2020-11-19 08:46 | disposition home or self-care (01) ==
LOC: LOS 08:48
PROVIDERS: PCP Internal Medicine; Visit Provider Internal Medicine Nephrology
DX: Z94.0 Kidney transplant status (principal); Z79.899 Other long term (current) drug therapy; Z29.8 Encounter for other specified prophylactic measures
CPT/HCPCS: 36415; 80053; 85027; 80197; 81003; 81015; 82465; 82565; 83735; 84100; 84156; 84165; 84550

== ENCOUNTER 2021-02-19 01:52 | Outpatient (CLI) | payer MEDICARE, BC, SELFPAY ==
[2021-02-19 12:20] LABS: Bilirubin Negative (Negative); Blood Negative (Negative); Clarity Clear (Clear); Glucose Negative (Negative); Ketones Negative (Negative); Leukocyte Esterase Negative (Negative); Nitrite Negative (Negative); Urobilinogen 0.2 EU/dL (Up TO 0.2)
[2021-02-19 12:21] LABS: HCT 43.1 % (36.0-46.0); MCH 30.2 pg (27.0-33.0); MCHC 32.5 % (32.0-36.0); MCV 93.1 fL (80-95); MPV 9.3 fL (8.0-11.0); Platelet Count 293 10^3/uL (130-400); RBC 4.63 10^6/uL (3.93-5.22); RDW 13.3 % (11.7-14.6); RDW-SD 45.6 fL; WBC 6.12 10^3/uL (4.4-10.8)
[2021-02-19 12:29] LABS: PROTEIN 26.9 mg/dL
[2021-02-19 12:31] LABS: Bacteria Negative HPF (Negative); C & S Indicated? No; COMMENT (LAB VIEW ONLY) 28.74 mg/dL; Casts 0-2 Hyaline LPF (Negative); Crystals Negative HPF (Negative); Epithelial Cells Few HPF (Negative); Mucus Negative (Negative); Prot/Crea Ur Ratio 0.93; RBC Negative HPF (0-2); WBC Negative HPF (0-5)
[2021-02-19 12:35] LABS: ALT 29 U/L (14-59); AST 24 U/L (15-37); Albumin 3.8 g/dL (3.4-5.0); Alkaline Phosphatase 55 U/L (46-116); BUN 18 mg/dL (7-18); Bilirubin, Total 0.5 mg/dL (0.2-1.0); CREATININE 1.1 mg/dL (0.55-1.02); Calcium 9.8 mg/dL (8.5-10.1); Chloride 99 mmol/L (98-107); Estimated GFR 48.55 (mL/min/1.73m2); Glucose 84 mg/dL (74-106); Magnesium 1.6 mg/dL (1.8-2.4); PHOSPHORUS 3.3 mg/dL (2.6-4.7); Potassium 4.4 mmol/L (3.5-5.1); Sodium 138 mmol/L (136-145); Uric Acid 5.5 mg/dL (2.6-6.0)
[2021-02-19 12:37] LABS: Cholesterol 201 mg/dL (<200)
[2021-03-13 09:48] LABS: Tacrolimus (DHMC) 4.7 ng/ml
== END 2021-02-19 01:53 | disposition home or self-care (01) ==
PROVIDERS: PCP Internal Medicine; Visit Provider Internal Medicine Nephrology
DX: Z94.0 Kidney transplant status (principal); Z79.899 Other long term (current) drug therapy; Z29.8 Encounter for other specified prophylactic measures
CPT/HCPCS: 36415; 80053; 80197; 85027; 81003; 81015; 82465; 82565; 83735; 84100; 84156; 84550

== ENCOUNTER 2021-03-26 02:56 | Outpatient (CLI) | payer MEDICARE, BC, SELFPAY ==
[2021-03-26 11:18] LABS: HCT 40.6 % (36.0-46.0); HGB 13.6 g/dL (11.2-15.7); MCH 31.6 pg (27.0-33.0); MCHC 33.5 % (32.0-36.0); MCV 94.2 fL (80-95); MPV 9.4 fL (8.0-11.0); Platelet Count 271 10^3/uL (130-400); RBC 4.31 10^6/uL (3.93-5.22); RDW 13.5 % (11.7-14.6); RDW-SD 47.4 fL; Reticulocyte 1.5 % (0.5-2.4); WBC 6.51 10^3/uL (4.4-10.8)
[2021-03-26 11:46] LABS: Bilirubin Negative (Negative); Blood Negative (Negative); Clarity Clear (Clear); Glucose Negative (Negative); Ketones Negative (Negative); Leukocyte Esterase Negative (Negative); Nitrite Negative (Negative); Urobilinogen 0.2 EU/dL (Up TO 0.2)
[2021-03-26 11:52] LABS: Hemoglobin A1C 5.5 % (<5.7)
[2021-03-26 12:01] LABS: ALT 29 U/L (14-59); AST 25 U/L (15-37); Albumin 3.8 g/dL (3.4-5.0); Alkaline Phosphatase 57 U/L (46-116); Anion Gap 8.5 mmol/L (3-11); BUN 23 mg/dL (7-18); Bilirubin, Total 0.6 mg/dL (0.2-1.0); CO2 29.5 mmol/L (21.0-32.0); CREATININE 1.2 mg/dL (0.55-1.02); Calcium 9.7 mg/dL (8.5-10.1); Calculated LDL 112 mg/dL (<100); Chloride 98 mmol/L (98-107); Cholesterol 210 mg/dL (<200); Estimated GFR 43.91 (mL/min/1.73m2); Glucose 72 mg/dL (74-106); HDL Cholesterol 71 mg/dL (40-60); Magnesium 1.7 mg/dL (1.8-2.4); Potassium 4.5 mmol/L (3.5-5.1); Sodium 136 mmol/L (136-145); Total Protein 7.1 g/dL (6.4-8.2); Triglyceride 136 mg/dL (<150)
[2021-03-26 12:13] LABS: PHOSPHORUS 4.1 mg/dL (2.6-4.7)
[2021-03-26 12:19] LABS: Vitamin D 25 Total 39.7 ng/mL (30-100)
[2021-03-26 13:27] LABS: PROTEIN 22.2 mg/dL
[2021-03-26 13:45] LABS: COMMENT (LAB VIEW ONLY) 39.43 mg/dL; Prot/Crea Ur Ratio 0.56
[2021-03-27 08:46] LABS: Calcium (Random Urine) 7.9 mg/dL (See Note); Phosphorus Urine 16.5 mg/dL (See Note)
[2021-03-27 08:51] LABS: Magnesium Random Urine 6.9 mg/dL (See Note)
[2021-03-27 09:22] LABS: Parathyroid Hormone,Intact 45 pg/mL (19-88)
[2021-03-27 13:26] LABS: Tacrolimus 5.9 ng/mL (See Note)
[2021-03-28 16:26] LABS: BKV DNA Detect/Quant, U Undetected IU/mL (Undetected)
[2021-03-31 17:20] LABS: 1,25-Dihydroxyvitamin D 20 pg/mL (18-78)
== END 2021-03-26 02:57 | disposition home or self-care (01) ==
LOC: LOS 02:56
PROVIDERS: PCP Internal Medicine; Visit Provider Internal Medicine Nephrology
DX: Z79.899 Other long term (current) drug therapy; Z94.0 Kidney transplant status; E55.9 Vitamin D deficiency, unspecified
CPT/HCPCS: 36415; 80053; 80061; 82306; 83735; 85027; 87799; 80197; 81003; 82340; 82465; 82565; 82652; 83036; 83970; 84100; 84105; 84156; 84550; 85045

== ENCOUNTER 2021-06-24 01:33 | Outpatient (CLI) | payer MEDICARE, BC, SELFPAY ==
[2021-06-24 09:22] LABS: HCT 40.1 % (36.0-46.0); HGB 13.2 g/dL (11.2-15.7); MCH 30.5 pg (27.0-33.0); MCHC 32.9 % (32.0-36.0); MCV 92.6 fL (80-95); MPV 8.2 fL (8.0-11.0); Platelet Count 296 10^3/uL (130-400); RBC 4.33 10^6/uL (3.93-5.22); RDW 13.3 % (11.7-14.6); RDW-SD 45.6 fL; WBC 6.63 10^3/uL (4.4-10.8)
[2021-06-24 09:26] LABS: Bilirubin Negative (Negative); Blood Negative (Negative); Clarity Clear (Clear); Glucose Negative (Negative); Ketones Negative (Negative); Leukocyte Esterase Negative (Negative); Nitrite Negative (Negative); Specific Gravity 1.015 (1.005-1.025); Urobilinogen 0.2 EU/dL (Up TO 0.2); pH 7.5 (5-8)
[2021-06-24 10:22] LABS: Cholesterol 192 mg/dL (<200)
[2021-06-24 10:27] LABS: ALT 30 U/L (14-59); AST 26 U/L (15-37); Albumin 3.6 g/dL (3.4-5.0); Alkaline Phosphatase 66 U/L (46-116); BUN 18 mg/dL (7-18); Bilirubin, Total 0.6 mg/dL (0.2-1.0); CREATININE 1.1 mg/dL (0.55-1.02); Calcium 9.4 mg/dL (8.5-10.1); Chloride 98 mmol/L (98-107); Estimated GFR 48.42 (mL/min/1.73m2); Glucose 89 mg/dL (74-106); Magnesium 1.5 mg/dL (1.8-2.4); Sodium 135 mmol/L (136-145)
[2021-06-24 10:39] LABS: COMMENT (LAB VIEW ONLY) 42.02 mg/dL; PROTEIN 15.8 mg/dL; Prot/Crea Ur Ratio 0.37
[2021-06-24 10:45] LABS: PHOSPHORUS 4.1 mg/dL (2.6-4.7)
[2021-06-25 13:02] LABS: Tacrolimus 5.5 ng/mL (See Note)
== END 2021-06-24 01:34 | disposition home or self-care (01) ==
LOC: LBO 01:34
PROVIDERS: PCP Internal Medicine; Visit Provider Internal Medicine Nephrology
DX: Z94.0 Kidney transplant status (principal); Z79.899 Other long term (current) drug therapy; Z29.8 Encounter for other specified prophylactic measures
CPT/HCPCS: 36415; 80053; 85027; 80197; 81003; 82465; 82565; 83735; 84100; 84156; 84550

== ENCOUNTER 2021-08-11 17:00 | Outpatient (REF) | payer MEDICARE, BC, SELFPAY ==
[2021-08-11 21:36] LABS: Bilirubin Negative (Negative); Blood Moderate (Negative); Clarity Cloudy (Clear); Glucose Negative (Negative); Ketones Negative (Negative); Leukocyte Esterase Moderate (Negative); Nitrite Negative (Negative); Specific Gravity 1.015 (1.005-1.025); Urobilinogen 0.2 EU/dL (Up TO 0.2)
[2021-08-11 22:09] LABS: RBC >50 HPF (0-2); WBC >50 HPF (0-5)
[2021-08-11 22:10] LABS: Bacteria Packed HPF (Negative); C & S Indicated? C&S Done As Ordered; Crystals Negative HPF (Negative); Epithelial Cells Negative HPF (Negative); Other Cells Few Transitional (Negative)
== END 2021-08-11 17:01 | disposition home or self-care (01) ==
LOC: NCHCN 17:00
PROVIDERS: PCP Internal Medicine; Visit Provider Nurse Practitioner Family
DX: R30.0 Dysuria (principal); R35.0 Frequency of micturition
CPT/HCPCS: 87077; 81003; 81015; 87086; 87186

== ENCOUNTER 2021-10-12 02:42 | Outpatient (CLI) | payer MEDICARE, BC, SELFPAY ==
[2021-10-12 12:22] LABS: HCT 41.6 % (36.0-46.0); HGB 13.6 g/dL (11.2-15.7); MCH 30.2 pg (27.0-33.0); MCHC 32.7 % (32.0-36.0); MCV 92 fL (80-95); MPV 8.7 fL (8.0-11.0); Platelet Count 304 10^3/uL (130-400); RDW 13.6 % (11.7-14.6); RDW-SD 46.7 fL; WBC 6.55 10^3/uL (4.4-10.8)
[2021-10-12 12:34] LABS: Bilirubin Negative (Negative); Blood Negative (Negative); Clarity Clear (Clear); Glucose Negative (Negative); Ketones Negative (Negative); Leukocyte Esterase Negative (Negative); Nitrite Negative (Negative); Specific Gravity 1.015 (1.005-1.025); Urobilinogen 0.2 EU/dL (Up TO 0.2)
[2021-10-12 12:51] LABS: Bacteria Negative HPF (Negative); C & S Indicated? No; Casts 0-2 Hyaline LPF (Negative); Crystals Negative HPF (Negative); Epithelial Cells Few HPF (Negative); Mucus Negative (Negative); RBC Negative HPF (0-2); WBC Negative HPF (0-5)
[2021-10-12 12:59] LABS: ALT 23 U/L (14-59); AST 24 U/L (15-37); Albumin 3.7 g/dL (3.4-5.0); Alkaline Phosphatase 58 U/L (46-116); Anion Gap 7.8 mmol/L (3-11); BUN 26 mg/dL (7-18); Bilirubin, Total 0.6 mg/dL (0.2-1.0); CO2 29.2 mmol/L (21.0-32.0); CREATININE 1.2 mg/dL (0.55-1.02); Calcium 9.4 mg/dL (8.5-10.1); Chloride 97 mmol/L (98-107); Glucose 94 mg/dL (74-106); Magnesium 1.6 mg/dL (1.8-2.4); PHOSPHORUS 3.2 mg/dL (2.6-4.7); Potassium 4.2 mmol/L (3.5-5.1); Sodium 134 mmol/L (136-145); Total Protein 7.4 g/dL (6.4-8.2); Uric Acid 5.5 mg/dL (2.6-6.0)
[2021-10-12 14:42] LABS: COMMENT (LAB VIEW ONLY) 50.08 mg/dL; PROTEIN 28.4 mg/dL; Prot/Crea Ur Ratio 0.56
[2021-10-12 23:35] LABS: Cholesterol 190 mg/dL (<200)
[2021-10-13 10:26] LABS: Tacrolimus 4.7 ng/mL (See Note)
== END 2021-10-12 02:43 | disposition home or self-care (01) ==
LOC: LOS 02:42
PROVIDERS: PCP Internal Medicine; Visit Provider Internal Medicine Nephrology
DX: Z94.0 Kidney transplant status (principal); Z79.899 Other long term (current) drug therapy
CPT/HCPCS: 36415; 80053; 85027; 80197; 81003; 81015; 82465; 82565; 83735; 84100; 84156; 84550

== ENCOUNTER 2021-10-12 11:20 | Outpatient (REF) | payer MEDICARE, BC, SELFPAY ==
--- NOTE | 2021-10-12 11:00 | PAPFT_PTH ---
PATIENT: Sonam Herring LOC: [facility] U#:[id number] AGE/SX: 76/F ROOM: RE10/12/[address]: MARCI Toletnino : 1945 BED: DIS: 10/12/2021 SPEC #: [id number] RECD: 10/12/21 12:48 STATUS: ALEXUS REQ #: [id number] RACHANA: 10/12/21 11:[address]: Kelley Kuhn DEPT: [facility] Cytology RECD BY: Sidra Merrill ENTERED: 10/12/21 12:49 SP TYPE: PAPFT OTHR DR: Missael Ordaz Tissues: 1 - CX/ENDOCX FOR PAP SMEARS Procedures: PAP THIN PREP/UVM Screening HPV DNA PROBE Comments: [id number]
== END 2021-10-12 11:21 | disposition home or self-care (01) ==
LOC: LBN 11:20
PROVIDERS: PCP Internal Medicine; Visit Provider Nurse Practitioner Family
DX: N72 Inflammatory disease of cervix uteri (principal); Z01.411 Encounter for gynecological examination (general) (routine) with abnormal findings; Z11.51 Encounter for screening for human papillomavirus (HPV); Z12.72 Encounter for screening for malignant neoplasm of vagina
CPT/HCPCS: 88142; 87624

== ENCOUNTER → 2021-10-21 01:03 | Outpatient (CLI) | payer MEDICARE, BC, SELFPAY ==
--- NOTE | 2021-10-21 10:30 | DI.MAMMO_ITS ---
Exam(s) MAMMO SCREENING EXAM: MAMMO SCREENING CLINICAL HISTORY: screening TECHNIQUE: Mammograms were interpreted according to the usual protocol including computer analysis w [employer] CAD system, tomosynthesis and C-view imaging. COMPARISON: FINDINGS: The breasts are of moderate density with fairly symmetrical distribution of fibroglandular tissue. N o dominant mass or clumped microcalcification is identified in either breast. The current examinatio n is compared with previous examinations including September 2020 and there has been no gross interval edwin nge appearance comparison with previous studies. IMPRESSION: No specific evidence of malignancy at this time. Routine screening examinations are suggested at yea rly intervals in this age group according to the ACS ACR guidelines. BI-RADS Category 1 - Negative Breast Density - Category B - Scattered areas of fibroglandular density
== END ==
PROVIDERS: PCP Internal Medicine; Visit Provider Nurse Practitioner Family
DX: Z12.31 Encounter for screening mammogram for malignant neoplasm of breast (principal)
CPT/HCPCS: 77063; 77067

== ENCOUNTER 2022-01-22 02:04 | Outpatient (CLI) | payer MEDICARE, BC, SELFPAY ==
[2022-01-22 09:36] LABS: HCT 43.9 % (36.0-46.0); HGB 14.7 g/dL (11.2-15.7); MCH 30.2 pg (27.0-33.0); MCHC 33.5 % (32.0-36.0); MCV 90 fL (80-95); MPV 8.4 fL (8.0-11.0); Platelet Count 314 10^3/uL (130-400); RBC 4.87 10^6/uL (3.93-5.22); RDW 13.5 % (11.7-14.6); RDW-SD 45.4 fL; WBC 6.46 10^3/uL (4.4-10.8)
[2022-01-22 10:00] LABS: Bilirubin Negative (Negative); Blood Negative (Negative); Clarity Clear (Clear); Glucose Negative (Negative); Ketones Negative (Negative); Leukocyte Esterase Negative (Negative); Nitrite Negative (Negative); Specific Gravity 1.015 (1.005-1.025); Urobilinogen 0.2 EU/dL (Up TO 0.2)
[2022-01-22 10:20] LABS: Cholesterol 220 mg/dL (<200)
[2022-01-22 10:25] LABS: ALT 28 U/L (14-59); AST 28 U/L (15-37); Albumin 4.2 g/dL (3.4-5.0); Alkaline Phosphatase 83 U/L (46-116); Anion Gap 8.1 mmol/L (3-11); BUN 23 mg/dL (7-18); Bilirubin, Total 0.7 mg/dL (0.2-1.0); CO2 29.9 mmol/L (21.0-32.0); CREATININE 1.2 mg/dL (0.55-1.02); Chloride 96 mmol/L (98-107); Estimated GFR 47.21 (mL/min/1.73m2); Glucose 98 mg/dL (74-106); Magnesium 1.5 mg/dL (1.8-2.4); PHOSPHORUS 3.5 mg/dL (2.6-4.7); Sodium 134 mmol/L (136-145); Total Protein 7.8 g/dL (6.4-8.2); Uric Acid 5.5 mg/dL (2.6-6.0)
[2022-01-22 10:35] LABS: Prot/Crea Ur Ratio 0.55
[2022-02-08 09:19] LABS: Tacrolimus (DHMC) 6.1 ng/ml
== END 2022-01-22 02:05 | disposition home or self-care (01) ==
LOC: LBO 02:04
PROVIDERS: PCP Internal Medicine; Visit Provider Internal Medicine Nephrology
DX: Z94.0 Kidney transplant status (principal); Z79.899 Other long term (current) drug therapy
CPT/HCPCS: 36415; 80053; 80197; 85027; 81003; 82465; 82565; 83735; 84100; 84156; 84443; 84550

== ENCOUNTER 2022-03-10 02:50 | Outpatient (CLI) | payer MEDICARE, BC, SELFPAY ==
[2022-03-10 09:22] LABS: HCT 40.6 % (36.0-46.0); HGB 13.6 g/dL (11.2-15.7); MCH 30.5 pg (27.0-33.0); MCHC 33.5 % (32.0-36.0); MCV 91 fL (80-95); MPV 8.3 fL (8.0-11.0); Platelet Count 268 10^3/uL (130-400); RBC 4.46 10^6/uL (3.93-5.22); RDW-SD 47.2 fL; Reticulocyte 1.3 % (0.5-2.4); WBC 6.39 10^3/uL (4.4-10.8)
[2022-03-10 09:33] LABS: Bilirubin Negative (Negative); Blood Negative (Negative); Clarity Clear (Clear); Glucose Negative (Negative); Ketones Negative (Negative); Leukocyte Esterase Trace (Negative); Nitrite Negative (Negative); Specific Gravity 1.015 (1.005-1.025); Urobilinogen 0.2 EU/dL (Up TO 0.2)
[2022-03-10 09:52] LABS: Bacteria Negative HPF (Negative); C & S Indicated? Yes; Casts Negative LPF (Negative); Crystals Negative HPF (Negative); Epithelial Cells Few HPF (Negative); Mucus Negative (Negative); RBC Negative HPF (0-2); WBC 0-2 HPF (0-5)
[2022-03-10 09:53] LABS: Creatinine,Urine 34.28 mg/dL
[2022-03-10 09:53] LABS: ALT 23 U/L (14-59); AST 33 U/L (15-37); Albumin 3.7 g/dL (3.4-5.0); Alkaline Phosphatase 64 U/L (46-116); Anion Gap 5.6 mmol/L (3-11); BUN 27 mg/dL (7-18); Bilirubin, Total 0.6 mg/dL (0.2-1.0); CO2 30.4 mmol/L (21.0-32.0); CREATININE 1.4 mg/dL (0.55-1.02); Calculated LDL 101 mg/dL (<100); Chloride 99 mmol/L (98-107); Cholesterol 190 mg/dL (<200); Estimated GFR 39.23 (mL/min/1.73m2); Glucose 74 mg/dL (74-106); HDL Cholesterol 69 mg/dL (40-60); Magnesium 1.3 mg/dL (1.8-2.4); Potassium 4.8 mmol/L (3.5-5.1); Sodium 135 mmol/L (136-145); Total Protein 7.4 g/dL (6.4-8.2); Triglyceride 104 mg/dL (<150)
[2022-03-10 09:54] LABS: COMMENT (LAB VIEW ONLY) 35.43 mg/dL; PROTEIN 11.8 mg/dL; Prot/Crea Ur Ratio 0.33
[2022-03-10 10:05] LABS: PHOSPHORUS 3.4 mg/dL (2.6-4.7); Uric Acid 6.1 mg/dL (2.6-6.0)
[2022-03-10 10:19] LABS: Hemoglobin A1C 5.5 % (<5.7)
[2022-03-10 18:52] LABS: Parathyroid Hormone,Intact 53 pg/mL (19-88)
[2022-03-11 04:55] LABS: Vitamin D 25 Total 43.4 ng/mL (30-100)
[2022-03-11 09:15] LABS: Magnesium Random Urine 4.9 mg/dL (See Note)
[2022-03-11 09:22] LABS: Calcium (Random Urine) 7.6 mg/dL (See Note); Phosphorus Urine 7.6 mg/dL (See Note)
[2022-03-12 12:34] LABS: BKV DNA Detect/Quant, U Undetected IU/mL (Undetected)
[2022-03-12 13:34] LABS: SARS-CoV-2 Spike Ab, Interp Positive; SARS-CoV-2 Spike Ab, Quant >250 U/mL
[2022-03-15 11:11] LABS: 1,25-Dihydroxyvitamin D 22 pg/mL (18-78)
== END 2022-03-10 02:51 | disposition home or self-care (01) ==
LOC: LBO 02:51
PROVIDERS: PCP Internal Medicine; Visit Provider Internal Medicine Nephrology
DX: E55.9 Vitamin D deficiency, unspecified (principal); Z94.0 Kidney transplant status; Z79.899 Other long term (current) drug therapy; R82.998 Other abnormal findings in urine
CPT/HCPCS: 36415; 80053; 80061; 80197; 82306; 83735; 85027; 86769; 87799; 81003; 81015; 82340; 82565; 82652; 83036; 83970; 84100; 84105; 84156; 84550; 85045; 87086

== ENCOUNTER 2022-05-03 06:14 | Day surgery (SDC) | payer MEDICARE, BC, SELFPAY ==
[2022-05-03 06:16] VITALS: BP 151/88; PULSE 97; RESP 18; TEMP 36.4; O2SAT 99
[2022-05-03] MEDS: Tropicam./Phenyleph. (1/2.5%) 5 ML BTL OD ×3 (06:36→06:48)
--- NOTE | 2022-05-03 07:02 | ANES.PREOP_ITS ---
General Info Date of Service Date Performed: 05/03/22 Height: 5 ft 1 in Weight: 54.6 kg Body Mass Index (BMI): 22.7 Surgical Procedure: Operation Date: 05/03/22 07:40 Proposed Procedure Side Surgeon p Cataract Extraction with IOL Implant Right Jhony Baker MD Meds Allergies and Home Medications Allergies Allergy/AdvReac Type Severity Reaction Status Date / Time sulfamethoxazole Allergy Intermediate Nausea Verified 05/03/22 06:28 [From Bactrim] trimethoprim [From Bactrim] Allergy Intermediate Nausea Verified 05/03/22 06:28 ciprofloxacin HCl Allergy Mild Rash Verified 05/03/22 06:28 [From Cipro] Home Medication Medication Instructions Recorded ascorbic acid (vitamin C) 250 mg 500 mg PO BID 08/03/12 chewable tablet (Vitamin C) aspirin 81 mg chewable tablet 81 mg PO DAILY 08/03/12 (Aspirin Low-Strength) calcium carbonate 300 mg (750 mg) 300 mg PO PRN PRN 08/03/12 chewable tablet (Tums) folic acid 1 mg tablet 1 mg PO DAILY 08/03/12 dvacoele-sck-gprkw acid 0.4 1 ea PO 08/03/12 mg-lycopene 300 mcg-lutein 250 mcg tablet (Centrum Silver) tacrolimus 1 mg capsule, 2 mg PO DAILY 07/29/14 immediate-release (Prograf) cranberry concentrate-ascorbic 2 ea PO BID 08/18/17 acid 12,600 mg-20 mg capsule levothyroxine 25 mcg capsule 25 mcg PO DAILY 08/21/18 mesalamine 0.375 gram 1.5 gm PO QAM 08/21/18 capsule,extended release 24 hr (Apriso) diltiazem HCl 60 mg 120 mg PO Q12H 10/06/20 capsule,extended release 12 hr losartan 25 mg tablet 25 mg PO DAILY 10/06/20 calcium citrate 200 mg (950 mg) 200 mg PO DAILY 04/30/22 tablet d-mannose 500 mg capsule 500 mg PO DAILY 04/30/22 estradiol 0.01% (0.1 mg/gram) 1 applic vaginal DIRECTED 04/30/22 vaginal cream hydrocodone 5 mg-acetaminophen 325 1 tab PO BID PRN 04/30/22 mg tablet magnesium gluconate 12.5 mg 250 mg PO DAILY 04/30/22 magnesium (250 mg) tablet Current Visit Medications: Current Medications Generic Name Dose Route Start Last Admin Trade Name Freq PRN Reason Stop Dose Admin Acetaminophen 1,000 mg 05/03/22 06:00 Acetaminophen 500 Mg Tab PO Q4H PRN PRN Miscellaneous Medication 0 ml 05/03/22 06:00 Prednisolone 1%, Moxifloxacin 0.5%, Nepafenac 0.1% 5ml Btl OD DIRECTED GAL Miscellaneous Medication 0 ml 05/03/22 06:00 05/03/22 06:48 Tropicam./Phenyleph. 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.0 Hypertension 07/29/14 I10 History of genital warts 07/29/14 Z86.19 Hypothyroid E03.9 Crohn's disease K50.90 Nuclear sclerotic cataract of right eye H25.11 Cortical cataract of right eye H26.9 Medical History Medical History Adjustment disorder Alopecia Atrial premature beats Carpal tunnel syndrome Cervical condyloma ESRD (end stage renal disease) Goiter Hyperlipemia Lumbago Pedal edema Recurrent cystitis Restless leg syndrome Surgical History Surgical History Bowel surgery 1998 secondary to peritonitis History of appendectomy History of colonoscopy L Kidney transplant 1998 Nephrectomy Tobacco Smoking/Tobacco Use Status: Never Alcohol Alcohol Intake: never Substance Use Substance use: Never Substance use type: does not use Prental History History 1 Para 0 Hx # Term Pregnancies Multiple births Hx # Pregnancies Ectopic pregnancies AB induced Hx Number of Living Children AB spontaneous Vital Signs and Lab Results Vital Signs Most Recent Vital Signs in EMR: Most Recent Vital Signs Temp Pulse Resp BP Pulse Ox 36.4 C L 97 H 18 151/88 H 99 05/03/22 06:16 05/03/22 06:16 05/03/22 06:16 05/03/22 06:16 05/03/22 06:16 Lab Results Blood Type / Crossmatch: No Data to Display Complete Blood Count: No Data to Display Complete Metabolic Panel: No Data to Display Liver Function Panel: No Data to Display Coagulation Panel: No Data to Display Cardiac Panel: No Data to Display Arterial Blood Gas: No Data to Display Venous Blood Gas: No Data to Display Pancreas Panel: No Data to Display Thyroid Panel: No Data to Display Infectious Disease: No Data to Display Blood Cultures: No Data to Display Toxicology Panel: No Data to Display Anesthesia Assessment and Plan Anesthesia History Personal History: No History of Anesthesia Complications Family History: No Family History of Anesthesia Complications Exercise Tolerance Exercise Tolerance: Metabolic Equivalents>4 Pertinent Negatives Pertinent Negatives: No Symptoms of GERD, No Major Cardiovascular Symptoms or Complaints and No Major Pulmonary Symptoms or Complaints Cardiac & Pulmonary Exam Cardiac Exam: Normal S1/S2 Heart Sounds (Irregular beats) Pulmonary Exam: Clear Bilateral Breath Sounds Implantable Cardiac Device Does patient have a Pacemaker or an ICD?: No Airway Exam Known Difficult Airway: No Mallampati Class: 3 Mouth Opening: Normal (> 3cm) Thyromental Distance: Greater than 3 cm Neck Range of Motion: Full ROM Neck Circumference: Normal Teeth Condition: Normal Dentition ASA Classification ASA Score: ASA 3 Emergency Case?: No NPO Status NPO Status: NPO Clears >2 hours, Solids >8 hours Anesthesia Plan Resuscitation Status: Full Code Anesthesia Technique: MAC Anesthesia Airway Planned: Natural Airway Monitors Used: Standard Monitors Preoperative Comments:: Left Arm Fistula, New irregular heart rate per patient, reports that it is not atrial fibrillation--EKG completed at [facility].
[2022-05-03 07:05] VITALS: BMI 22.7
--- NOTE | 2022-05-03 07:15 | RT.EKG_ITS ---
APPROVED REPORT Exam: Resting ECG Reason for Exam: preoperative Exam Patient Location: O HR:86 bpm ECG Measurements Heart Rate 86 AXIS MA [id number] P [id number] QRSd 93 QRS -90 QT 395 T 7 QTc 472 Conclusion Atrial fibrillation...V-rate 74- 83, irreg A-activity Left anterior fascicular block...axis(240,-40), init forces inf Low voltage, extremity leads...all extremity leads <0.5mV
--- NOTE | 2022-05-03 08:10 | W.ANESPOSTOP ---
Postoperative Evaluation Date, Time and Location Date Performed: 05/03/22 Time Performed: 07:48 Patient Location: Day Surgery Unit Vital Signs Most Recent Imported Vital Signs: Most Recent Vital Signs Temp Pulse Resp BP Pulse Ox 36.4 C L 97 H 18 151/88 H 99 05/03/22 06:16 05/03/22 06:16 05/03/22 06:16 05/03/22 06:16 05/03/22 06:16 Pain Score Most Recent Pain Score: Most Recent Pain Score Pain Level 0 05/03/22 06:16 Assessment Mental Status: Awake (Alert & Oriented to Patient Baseline) Airway and Respiratory Function: Patent airway with normal (patient baseline) respiratory exam Cardiovascular Function: Hemodynamically Stable (Patient reported during the intake that she had a new irregular heart rate, but stated she was told it was not A. Fib. Decision made to obtain 12-lead EKG in the preoperative area today, and it was found and confirmed that patient was indeed in A. Fib.) Hydration Status: Adequately Hydrated Nausea & Vomiting: No Nausea or Vomiting Pain: Pt. Denies Any Pain Peripheral Nerve Block: Patient did not receive a nerve block Teaching Patient Teaching: Advised to seek followup for the following concerns (See explanation) (Patient provided education on A. Fib. Currently rate controlled, no symptoms of chest pain or pressure, and is not dizzy. Patient verbalizes she will follow up with PCP today.) Concerns: New Onset Atrial Fibrillation Postoperative Comments:: A. Fib not previously diagnosed, EKG will be faxed to PCP office today.
--- NOTE | 2022-05-03 09:51 | PDOC.ANES ---
Date of service: 05/03/22 Time of Service: 09:51 Anesthesia Note Report Anesthesia Note: I called and spoke to Sonam to let her know she has a visit scheduled for this Tuesday at 1100 with her PCP to discuss further management of her new onset atrial fibrillation. She was given education material and advised to seek medical attention before that if needed. She understands the plan.
== END 2022-05-03 06:15 | disposition home or self-care (01) ==
LOC: SUR 06:14
PROVIDERS: PCP Internal Medicine; Visit Provider Ophthalmology
DX: H26.9 Unspecified cataract (principal); H53.8 Other visual disturbances; I48.91 Unspecified atrial fibrillation
CPT/HCPCS: 66984; 93005; 93010

== ENCOUNTER 2022-05-17 12:00 | Day surgery (SDC) | payer MEDICARE, BC, SELFPAY ==
[2022-05-17 12:05] VITALS: BP 147/99; PULSE 93; RESP 18; TEMP 36.3; O2SAT 99
[2022-05-17] MEDS: Tropicam./Phenyleph. (1/2.5%) 5 ML BTL OD ×3 (12:24→12:38)
--- NOTE | 2022-05-17 13:12 | W.ANESPRE ---
General Info Date of Service Date Performed: 05/17/22 Height: 5 ft Weight: 55.1 kg Body Mass Index (BMI): 23.7 Surgical Procedure: Operation Date: 05/17/22 13:40 Proposed Procedure Side Surgeon p Cataract Extraction with IOL Implant Right Jhony Baker MD Meds Allergies and Home Medications Allergies Allergy/AdvReac Type Severity Reaction Status Date / Time ciprofloxacin HCl Allergy Mild Rash Verified 05/17/22 12:28 [From Cipro] sulfamethoxazole AdvReac Intermediate Nausea Verified 05/17/22 12:28 [From Bactrim] trimethoprim [From Bactrim] AdvReac Intermediate Nausea Verified 05/17/22 12:28 Home Medication Medication Instructions Recorded ascorbic acid (vitamin C) 250 mg 500 mg PO BID 08/03/12 chewable tablet (Vitamin C) aspirin 81 mg chewable tablet 81 mg PO DAILY 08/03/12 (Aspirin Low-Strength) calcium carbonate 300 mg (750 mg) 300 mg PO PRN PRN 08/03/12 chewable tablet (Tums) folic acid 1 mg tablet 1 mg PO DAILY 08/03/12 mtwqqvja-gee-xntzu acid 0.4 1 ea PO DAILY 08/03/12 mg-lycopene 300 mcg-lutein 250 mcg tablet (Centrum Silver) tacrolimus 1 mg capsule, 2 mg PO DAILY 07/29/14 immediate-release (Prograf) cranberry concentrate-ascorbic 2 ea PO BID 08/18/17 acid 12,600 mg-20 mg capsule levothyroxine 25 mcg capsule 25 mcg PO DAILY 08/21/18 mesalamine 0.375 gram 1.5 gm PO QAM 08/21/18 capsule,extended release 24 hr (Apriso) diltiazem HCl 60 mg 120 mg PO Q12H 10/06/20 capsule,extended release 12 hr losartan 25 mg tablet 25 mg PO DAILY 10/06/20 calcium citrate 200 mg (950 mg) 200 mg PO DAILY 04/30/22 tablet d-mannose 500 mg capsule 500 mg PO DAILY 04/30/22 estradiol 0.01% (0.1 mg/gram) 1 applic vaginal DIRECTED 04/30/22 vaginal cream hydrocodone 5 mg-acetaminophen 325 1 tab PO BID PRN 04/30/22 mg tablet magnesium gluconate 12.5 mg 250 mg PO DAILY 04/30/22 magnesium (250 mg) tablet Current Visit Medications: Current Medications Generic Name Dose Route Start Last Admin Trade Name Freq PRN Reason Stop Dose Admin Acetaminophen 1,000 mg 05/17/22 06:00 Acetaminophen 500 Mg Tab PO Q4H PRN PRN Miscellaneous Medication 0 ml 05/17/22 06:00 05/17/22 12:38 Tropicam./Phenyleph. 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 Hypertension 07/29/14 I10 History of genital warts 07/29/14 Z86.19 Hypothyroid E03.9 Crohn's disease K50.90 Nuclear sclerotic cataract of right eye H25.11 Cortical cataract of right eye H26.9 Medical History Medical History Adjustment disorder Alopecia Atrial premature beats Carpal tunnel syndrome Cervical condyloma ESRD (end stage renal disease) Goiter Hyperlipemia Lumbago Pedal edema Recurrent cystitis Restless leg syndrome Surgical History Surgical History (Updated 05/17/22 @ 12:32 by Pallavi Knight RN) Bowel surgery 1998 secondary to peritonitis H/O tooth extraction History of appendectomy History of colonoscopy L Kidney transplant 1998 Nephrectomy Tobacco Smoking/Tobacco Use Status: Never Alcohol Alcohol Intake: never Substance Use Substance use: Never Substance use type: does not use Prental History History 1 Para 0 Hx # Term Pregnancies Multiple births Hx # Pregnancies Ectopic pregnancies AB induced Hx Number of Living Children AB spontaneous Vital Signs and Lab Results Vital Signs Most Recent Vital Signs in EMR: Most Recent Vital Signs Temp Pulse Resp BP Pulse Ox 36.3 C L 93 H 18 147/99 H 99 05/17/22 12:05 05/17/22 12:05 05/17/22 12:05 05/17/22 12:05 05/17/22 12:05 Lab Results Blood Type / Crossmatch: No Data to Display Complete Blood Count: No Data to Display Complete Metabolic Panel: No Data to Display Liver Function Panel: No Data to Display Coagulation Panel: No Data to Display Cardiac Panel: No Data to Display Arterial Blood Gas: No Data to Display Venous Blood Gas: No Data to Display Pancreas Panel: No Data to Display Thyroid Panel: No Data to Display Infectious Disease: No Data to Display Blood Cultures: No Data to Display Toxicology Panel: No Data to Display Anesthesia Assessment and Plan Anesthesia History Personal History: No History of Anesthesia Complications Family History: No Family History of Anesthesia Complications Exercise Tolerance Exercise Tolerance: Metabolic Equivalents>4 Pertinent Negatives Pertinent Negatives: No Symptoms of GERD, No Major Pulmonary Symptoms or Complaints and No History of CVA/TIA Cardiac & Pulmonary Exam Cardiac Exam: Normal S1/S2 Heart Sounds Pulmonary Exam: Clear Bilateral Breath Sounds Cardiac and Pulmonary Comment:: Discussed elevated risk of AF without anticoagulation. Patient wishes to proceed today. Implantable Cardiac Device Does patient have a Pacemaker or an ICD?: No Airway Exam Known Difficult Airway: No Mallampati Class: 3 Mouth Opening: Normal (> 3cm) Thyromental Distance: Greater than 3 cm Neck Range of Motion: Full ROM Neck Circumference: Normal Teeth Condition: Generalized Poor Dentition ASA Classification ASA Score: ASA 3 Emergency Case?: No NPO Status NPO Status: NPO Clears >2 hours, Solids >8 hours Anesthesia Plan Resuscitation Status: Full Code Anesthesia Technique: MAC Anesthesia Airway Planned: Natural Airway Monitors Used: Standard Monitors Preoperative Comments:: Discussed followup with PCP and transplant team to ensure that transplant team is aware of the potentially new onset Atrial fibrillation. No note or update was [place] in [place] [facility] [place].
[2022-05-17 13:14] VITALS: BMI 23.7
[2022-05-17] MEDS: Polymyxin B/Trimethoprim Ophth Soln 10 ML BTL OS (13:17)
[2022-05-17] MEDS: Tetracaine 0.5% 4 ML BTL OD (13:19)
[2022-05-17] MEDS: Balanced Salt Soln.-PLUS 500 ML BAG (13:19)
[2022-05-17] MEDS: Lidocaine 2% Jelly 6 ML SYR (13:20)
[2022-05-17] MEDS: Duovisc Viscoelastic System EACH 1 EACH (13:20)
[2022-05-17] MEDS: Povidone-Iodine Ophth 30 ML BTL (13:21)
[2022-05-17 13:35] VITALS: BP 165/87; PULSE 85; RESP 16; TEMP 36.4; O2SAT 99
--- NOTE | 2022-05-17 13:35 | PDOC.DSDIS_ITS ---
Date of service: 05/17/22 Time of Service: 13:35 Discharge Plan Disposition Patient Disposition: Home Discharge Details Reason For Visit: Cataract Attending Provider: Jhony Baker Primary Care Provider: Missael Ordaz [place] Meds and New Rx's Prescriptions: No Action mesalamine [Apriso] 0.375 gram capsule,extended release 24hr 1.5 gm PO QAM levothyroxine 25 mcg capsule 25 mcg PO DAILY losartan 25 mg tablet 25 mg PO DAILY diltiazem HCl 60 mg capsule,extended release 12 hr 120 mg PO Q12H calcium carbonate [Tums] 300 MG tablet,chewable 300 mg PO PRN PRN ascorbic acid (vitamin C) [Vitamin C] 250 MG tablet,chewable 500 mg PO BID aspirin [Aspirin Low-Strength] 81 MG tablet,chewable 81 mg PO DAILY folic acid 1 MG tablet 1 mg PO DAILY Centrum Silver 1 EACH tablet 1 ea PO DAILY tacrolimus [Prograf] 1 MG capsule 2 mg PO DAILY cranberry conc-ascorbic acid 1 EACH capsule 2 ea PO BID estradiol 0.01 % (0.1 mg/gram) cream 1 applic VAGINAL DIRECTED Label Comments: PLACE A PEA SIZED AMOUNT INSIDE VAGINAL OPENING AND URETHRA TWICE A WEEK AT NIGHT calcium citrate [Calcitrate] 200 mg (950 mg) Tablet 200 mg PO DAILY d-mannose 500 mg Capsule 500 mg PO DAILY magnesium gluconate 12.5 mg magne- sium (250 mg) Tablet 250 mg PO DAILY hydrocodone-acetaminophen 5-325 mg Tablet 1 tab PO BID PRN Discharge Orders Discharge Orders: Discharge Order (Routine); Ordered 05/17/22 Ordered By: Jhony Baker DS: Diagnosis Discharge Diagnosis (1) Nuclear sclerotic cataract of right eye: Status: Resolved (2) Cortical cataract of right eye: Status: Resolved
--- NOTE | 2022-05-17 13:36 | ROE_ITS ---
Date of service: 05/17/22 Time of Service: 13:36 Operative Note Operative Note DATE OF PROCEDURE: 05/17/22 PRE-OP DIAGNOSIS: Nuclear/cortical cataract, right eye POST-OP DIAGNOSIS: same PROCEDURE: Cataract extraction using phacoemulsification with intraocular lens implant, right eye SURGEON: Jhony Baker ANESTHESIA TYPE: Local By Surgeon and MAC Refer to Anesthesia Record ESTIMATED BLOOD LOSS: 0 PATHOLOGY: none sent COMPLICATIONS: None Patient was transported to: same day Patient's condition: stable Implants: Zheng & Zheng/GEE Tecnis [id number] Indications: Progressive visual loss due to cataract, right eye Procedure Description: CATARACT SURGERY OPERATIVE REPORT PREOPERATIVE DIAGNOSIS: 1. Nuclear/cortical cataract, right eye POSTOPERATIVE DIAGNOSIS: Same OPERATION: 1. Cataract extraction using phacoemulsification with posterior chamber intraocular lens implant, right eye. IOL: IOL Boiler Assistant Operator/Model: Zheng & Zheng / GEE Tecnis [id number] IOL Power: + 18.0 diopters IOL Serial Number: [id number] Optic Diameter: 6.0mm Haptic/Overall Diameter: 13.0mm PHACO INFO: FelipeBrainparkurion Vision System with OZil and Active Fluidics Cumulative Dispersed Energy (CDE): 11.60 seconds SURGEON: Jhony Baker MD, MARBIN ANESTHESIA: Monitored Anesthesia Care (MAC), with local sub-tenon's anesthetic infiltration COMPLICATIONS: None SPECIMENS: None INDICATIONS FOR PROCEDURE: The patient is a 77-year-old lady with history of diminished visual acuity in her right eye secondary to the development of nuclear/cortical cataract. The option of cataract surgery was offered to the patient and she felt she was symptomatic enough that she wished to proceed. Of note, she has what appears to be a legitimate fluoroquinolone allergy, a rash from prior oral fluoroquinolones, so the typical postoperative eyedrop regimen and intraocular moxifloxacin will not be used. PROCEDURE: The correct surgical eye was identified and marked as the right eye and the pupil was dilated in the preoperative area using mydriatics and cycloplegics. The dilated pupil size was 7.0 mm. The patient elected to proceed without oral sedation. The patient was brought to the operating room where cardiopulmonary monitoring was instituted and surgical time-out was performed, confirming the correct operative eye and IOL power. Topical anesthesia was administered and ophthalmic povidone-iodine 5% was instilled into the conjunctival fornices. Lidocaine gel was applied to the cornea and the namita-ocular area was prepped with Betadine 10% solution and draped in the usual sterile fashion for intraocular surgery, including an aperture drape. A Tegaderm transparent film dressing was cut in half and used to cover the lashes and lid margins. Care was taken to sequester the lashes and lid margins under the Tegaderm dressing. A lid speculum was placed between the lids of the operative eye and the Felipe LuxOR Revalia operating microscope was maneuvered into position. Lorrie scissors were then used to make a conjunctival buttonhole approximately 6mm posterior to the limbus in the inferonasal quadrant. Blunt dissection was carried out to expose bare sclera, and a blunt-tipped sub-tenon?s anesthesia cannula was introduced and passed posteriorly along the globe where non- preserved plain lidocaine was injected into posterior sub-Tenon?s space. A sideport knife was used to make a paracentesis port inferotemporally. Intraocul ar phenylephrine/lidocaine was injected into the anterior chamber. The anterior chamber was filled with viscoelastic. A keratome knife was used to construct a 2-plane near-clear corneal tunnel extending 2.0mm into clear cornea superiortemporally. A flap was raised on the anterior capsule and capsulorhexis forceps were used to complete a continuous curvilinear capsulorhexis of 5.0 mm. Balanced salt solution was then used to perform cortical cleaving hydrodissection and nuclear hydrodelineation until the lens could be freely rotated within the capsular bag. The lens nucleus was then disassembled and removed within the capsular bag and iris plane using phacoemulsification. Residual cortical material was removed using the I/A handpiece. The posterior capsule was carefully polished to remove as much residual lens epithelial cells as safely possible. The capsular bag was then inflated and the anterior chamber deepened with viscoelastic. The lens implant described above was inserted into the capsular bag using the GEE Dryden Injector. A Kuglen hook was used to dial the IOL into position. Residual viscoelastic was then removed first from posterior to the IOL, then from the anterior chamber using the I/A handpiece. The lens implant was noted to center nicely within the capsular bag. The incisions were stromally hydrated, and the anterior chamber was reformed using BSS. . The incisions were checked with a Weck spear and found to be secure. Several drops of ophthalmic povidone- iodine 5% were then applied to the eye followed by two drops of polymyxin B/sulfa trimethoprim, and 2 drops of prednisolone acetate 1%.. The drapes were removed and a clear plastic protective eye shield was placed over the eye. The patient was then returned to Same Day Surgery in stable condition.
--- NOTE | 2022-05-17 14:30 | W.ANESPOSTOP ---
Postoperative Evaluation Date, Time and Location Date Performed: 05/17/22 Time Performed: 13:35 Patient Location: Day Surgery Unit Vital Signs Most Recent Imported Vital Signs: Most Recent Vital Signs Temp Pulse Resp BP Pulse Ox 36.4 C L 85 16 165/87 H 99 05/17/22 13:35 05/17/22 13:35 05/17/22 13:35 05/17/22 13:35 05/17/22 13:35 Pain Score Most Recent Pain Score: Most Recent Pain Score Pain Level 0 05/17/22 13:35 Assessment Mental Status: Awake (Alert & Oriented to Patient Baseline) Airway and Respiratory Function: Patent airway with normal (patient baseline) respiratory exam Cardiovascular Function: Hemodynamically Stable Hydration Status: Adequately Hydrated Nausea & Vomiting: No Nausea or Vomiting Pain: Pt. Denies Any Pain Peripheral Nerve Block: Other (Local by Dr. Baker)
== END 2022-05-17 14:14 | disposition home or self-care (01) ==
PROVIDERS: PCP Internal Medicine; Visit Provider Ophthalmology
PROC: (CPT 66984; principal; 2022-05-17 13:30)
DX: H25.11 Age-related nuclear cataract, right eye (principal)
CPT/HCPCS: 66984; V2632

== ENCOUNTER 2022-06-30 03:01 | Outpatient (CLI) | payer MEDICARE, BC, SELFPAY ==
[2022-06-30 09:14] LABS: HCT 38.6 % (36.0-46.0); HGB 12.4 g/dL (11.2-15.7); MCH 31.6 pg (27.0-33.0); MCHC 32.1 % (32.0-36.0); MCV 98 fL (80-95); MPV 7.8 fL (8.0-11.0); Platelet Count 353 10^3/uL (130-400); RBC 3.93 10^6/uL (3.93-5.22); RDW 14.8 % (11.7-14.6); RDW-SD 53.6 fL; WBC 7.17 10^3/uL (4.4-10.8)
[2022-06-30 09:21] LABS: Bilirubin Negative (Negative); Blood Negative (Negative); Glucose Negative (Negative); Ketones Negative (Negative); Leukocyte Esterase Small (Negative); Nitrite Negative (Negative); Specific Gravity 1.015 (1.005-1.025); Urobilinogen 0.2 mg/dL (Up to 0.2); pH 6.5 (5-8)
[2022-06-30 09:26] LABS: Clarity Sl Cloudy (Clear)
[2022-06-30 09:27] LABS: Bacteria Few HPF (Negative); C & S Indicated? No/Sq. Contamination; Casts 0-2 Hyaline LPF (Negative); Crystals Negative HPF (Negative); Epithelial Cells Many HPF (Negative); Mucus Negative (Negative); Other Cells Few Renal (Negative); RBC Negative HPF (0-2)
[2022-06-30 09:59] LABS: COMMENT (LAB VIEW ONLY) 128.72 mg/dL; PROTEIN 36.4 mg/dL; Prot/Crea Ur Ratio 0.28
[2022-06-30 10:05] LABS: ALT 27 U/L (14-59); AST 25 U/L (15-37); Albumin 3.5 g/dL (3.4-5.0); Alkaline Phosphatase 96 U/L (46-116); Anion Gap 9.3 mmol/L (3-11); BUN 24 mg/dL (7-18); Bilirubin, Total 0.4 mg/dL (0.2-1.0); CO2 29.7 mmol/L (21.0-32.0); CREATININE 1.3 mg/dL (0.55-1.02); Calcium 9.5 mg/dL (8.5-10.1); Chloride 101 mmol/L (98-107); Estimated GFR 42.62 (mL/min/1.73m2); Glucose 93 mg/dL (74-106); Magnesium 1.7 mg/dL (1.8-2.4); PHOSPHORUS 3.5 mg/dL (2.6-4.7); Potassium 4.5 mmol/L (3.5-5.1); Sodium 140 mmol/L (136-145); Total Protein 7.5 g/dL (6.4-8.2); Uric Acid 5.8 mg/dL (2.6-6.0)
[2022-06-30 10:11] LABS: Cholesterol 206 mg/dL (<200)
[2022-07-01 13:49] LABS: Tacrolimus 4.4 ng/mL (See Note)
== END 2022-06-30 03:02 | disposition home or self-care (01) ==
LOC: LBO 03:01
PROVIDERS: PCP Internal Medicine; Visit Provider Internal Medicine Nephrology
DX: Z94.0 Kidney transplant status (principal); Z79.899 Other long term (current) drug therapy; Z29.8 Encounter for other specified prophylactic measures
CPT/HCPCS: 36415; 80053; 85027; 80197; 81003; 81015; 82465; 82565; 83735; 84100; 84156; 84550

== ENCOUNTER 2022-10-13 02:42 | Outpatient (CLI) | payer MEDICARE, BC, SELFPAY ==
[2022-10-13 08:54] LABS: HCT 40.5 % (36.0-46.0); HGB 13.8 g/dL (11.2-15.7); MCH 30.2 pg (27.0-33.0); MCHC 34.1 % (32.0-36.0); MCV 89 fL (80-95); MPV 8.4 fL (8.0-11.0); Platelet Count 272 10^3/uL (130-400); RBC 4.57 10^6/uL (3.93-5.22); RDW 13.9 % (11.7-14.6); RDW-SD 44.9 fL; WBC 5.43 10^3/uL (4.4-10.8)
[2022-10-13 09:18] LABS: Bilirubin Negative (Negative); Blood Trace-intact (Negative); Clarity Clear (Clear); Glucose Negative (Negative); Ketones Negative (Negative); Leukocyte Esterase Negative (Negative); Nitrite Negative (Negative); Specific Gravity 1.015 (1.005-1.025); Urobilinogen 0.2 mg/dL (Up to 0.2); pH 7.5 (5-8)
[2022-10-13 09:57] LABS: Bacteria Rare HPF (Negative); C & S Indicated? No; Casts Negative LPF (Negative); Crystals Negative HPF (Negative); Epithelial Cells Many HPF (Negative); Mucus Negative (Negative); Other Cells Negative (Negative); WBC 0-2 HPF (0-5)
[2022-10-13 10:08] LABS: COMMENT (LAB VIEW ONLY) 22.98 mg/dL; PROTEIN 33.1 mg/dL; Prot/Crea Ur Ratio 1.44
[2022-10-13 10:10] LABS: ALT 28 U/L (14-59); AST 29 U/L (15-37); Albumin 3.6 g/dL (3.4-5.0); Alkaline Phosphatase 68 U/L (46-116); Anion Gap 6.5 mmol/L (3-11); BUN 17 mg/dL (7-18); Bilirubin, Total 0.9 mg/dL (0.2-1.0); CO2 29.5 mmol/L (21.0-32.0); Calcium 9.5 mg/dL (8.5-10.1); Chloride 96 mmol/L (98-107); Estimated GFR 58.39 (mL/min/1.73m2); Glucose 98 mg/dL (74-106); Magnesium 1.4 mg/dL (1.8-2.4); PHOSPHORUS 3.7 mg/dL (2.6-4.7); Potassium 4.6 mmol/L (3.5-5.1); Sodium 132 mmol/L (136-145); Total Protein 7.4 g/dL (6.4-8.2); Uric Acid 4.8 mg/dL (2.6-6.0)
[2022-10-13 10:11] LABS: Cholesterol 188 mg/dL (<200)
[2022-10-14 13:26] LABS: Tacrolimus 6.6 ng/mL (See Note)
== END 2022-10-13 02:43 | disposition home or self-care (01) ==
LOC: LBO 02:42
PROVIDERS: PCP Internal Medicine; Visit Provider Internal Medicine Nephrology
DX: Z94.0 Kidney transplant status (principal); Z79.899 Other long term (current) drug therapy; Z29.8 Encounter for other specified prophylactic measures
CPT/HCPCS: 80053; 85027; 80197; 81003; 81015; 82465; 82565; 83735; 84100; 84156; 84550

== ENCOUNTER 2022-10-15 06:47 | Day surgery (SDC) | payer MEDICARE, BC, SELFPAY ==
[2022-10-15 06:50] VITALS: BP 156/90; PULSE 88; RESP 16; TEMP 36; O2SAT 98
--- NOTE | 2022-10-15 07:00 | ANES.PREOP_ITS ---
General Info Date of Service Date Performed: 10/15/22 Height: 5 ft Weight: 55.1 kg Body Mass Index (BMI): 23.7 Surgical Procedure: Operation Date: 10/15/22 08:40 Proposed Procedure Side Surgeon p Cataract Extraction with IOL Implant Left Jhony Baker MD Meds Allergies and Home Medications Allergies Allergy/AdvReac Type Severity Reaction Status Date / Time ciprofloxacin HCl Allergy Mild Rash Verified 10/15/22 06:57 [From Cipro] sulfamethoxazole AdvReac Intermediate Nausea Verified 10/15/22 06:57 [From Bactrim] trimethoprim [From Bactrim] AdvReac Intermediate Nausea Verified 10/15/22 06:57 Home Medication Medication Instructions Recorded ascorbic acid (vitamin C) 250 mg 500 mg PO BID 08/03/12 chewable tablet (Vitamin C) calcium carbonate 300 mg (750 mg) 300 mg PO PRN PRN 08/03/12 chewable tablet (Tums) folic acid 1 mg tablet 1 mg PO DAILY 08/03/12 fbuodxoh-vgh-wdzoc acid 0.4 1 ea PO DAILY 08/03/12 mg-lycopene 300 mcg-lutein 250 mcg tablet (Centrum Silver) tacrolimus 1 mg capsule, 2 mg PO DAILY 07/29/14 immediate-release (Prograf) cranberry concentrate-ascorbic 2 ea PO BID 08/18/17 acid 12,600 mg-20 mg capsule levothyroxine 25 mcg capsule 25 mcg PO DAILY 08/21/18 mesalamine 0.375 gram 1.5 gm PO QAM 08/21/18 capsule,extended release 24 hr (Apriso) diltiazem HCl 60 mg 120 mg PO Q12H 10/06/20 capsule,extended release 12 hr losartan 25 mg tablet 25 mg PO HS 10/06/20 calcium citrate 200 mg (950 mg) 200 mg PO DAILY 04/30/22 tablet d-mannose 500 mg capsule 500 mg PO DAILY 04/30/22 estradiol 0.01% (0.1 mg/gram) 1 applic vaginal DIRECTED 04/30/22 vaginal cream hydrocodone 5 mg-acetaminophen 325 1 tab PO BID PRN 04/30/22 mg tablet magnesium gluconate 12.5 mg 250 mg PO DAILY 04/30/22 magnesium (250 mg) tablet rivaroxaban 15 mg tablet (Xarelto) 15 mg PO DAILY 10/14/22 Current Visit Medications: Current Medications Generic Name Dose Route Start Last Admin Trade Name Freq PRN Reason Stop Dose Admin Acetaminophen 1,000 mg 10/15/22 06:00 Acetaminophen 500 Mg Tab PO 11/14/22 05:59 Q4H PRN PRN Balanced Salt Solution 500 ml 10/15/22 06:00 Balanced Salt Soln.-Plus 500 Ml Bag OP 11/14/22 05:59 DIRECTED [facility] Miscellaneous Medication 0 ml 10/15/22 06:00 Tropicam./Phenyleph. (1/2.5%) 5 Ml Btl OS 11/14/22 05:59 DIRECTED [facility] Tetracaine HCl 0 ml 10/15/22 06:00 Tetracaine 0.5% 4 Ml Btl OS 11/14/22 05:59 DIRECTED [facility] PFSH Active Problems Active Problems: Problem Status Onset Code Renal transplant recipient 07/29/14 Z94.0 Hypertension 07/29/14 I10 History of genital warts 07/29/14 Z86.19 Hypothyroid E03.9 Crohn's disease K50.90 Nuclear sclerotic cataract of right eye H25.11 Cortical cataract of right eye H26.9 Anterior epistaxis R04.0 Nuclear age-related cataract, left eye H25.12 Cortical age-related cataract, left eye H25.012 Medical History Medical History (Updated 10/15/22 @ 06:59 by Abeba Slater) Adjustment disorder Adjustment disorder with physical complaints Advance directive discussed with patient Alopecia Atrial premature beats Carpal tunnel syndrome Cataracts, bilateral Cervical condyloma Condyloma acuminata Cystitis Epistaxis ESRD (end stage renal disease) Goiter Goiter diffuse Hematoma of left knee region History of cardioversion History of cardioversion Hx of adenomatous polyp of colon Hyperlipemia Lumbago Paroxysmal atrial fibrillation Pedal edema Recurrent cystitis Restless leg syndrome Urinary frequency Surgical History Surgical History Bowel surgery 1998 secondary to peritonitis H/O tooth extraction History of appendectomy History of cataract surgery History of colonoscopy L Kidney transplant 1998 Nephrectomy Tobacco Smoking/Tobacco Use Status: Never Alcohol Alcohol Intake: never Substance Use Substance use: Never Substance use type: does not use Prental History History 1 Para 0 Hx # Term Pregnancies Multiple births Hx # Pregnancies Ectopic pregnancies AB induced Hx Number of Living Children AB spontaneous Vital Signs and Lab Results Lab Results Blood Type / Crossmatch: No Data to Display Complete Blood Count: White Blood Count 5.43 10^3/uL (4.4-10.8) 10/13/22 08:42 Red Blood Count 4.57 10^6/uL (3.93-5.22) 10/13/22 08:42 Hemoglobin 13.8 g/dL (11.2-15.7) 10/13/22 08:42 Hematocrit 40.5 % (36.0-46.0) 10/13/22 08:42 Platelet Count 272 10^3/uL (130-400) 10/13/22 08:42 Complete Metabolic Panel: Sodium 132 mmol/L (136-145) L 10/13/22 08:42 Potassium 4.6 mmol/L (3.5-5.1) 10/13/22 08:42 Chloride 96 mmol/L (98-107) L 10/13/22 08:42 Carbon Dioxide 29.5 mmol/L (21.0-32.0) 10/13/22 08:42 BUN 17 mg/dL (7-18) 10/13/22 08:42 Creatinine 1.0 mg/dL (0.55-1.02) 10/13/22 08:42 Est GFR (CKD-EPI 2020) 58.39 (mL/min/1.73m2) 10/13/22 08:42 Magnesium 1.4 mg/dL (1.8-2.4) L 10/13/22 08:42 Calcium 9.5 mg/dL (8.5-10.1) 10/13/22 08:42 Albumin 3.6 g/dL (3.4-5.0) 10/13/22 08:42 Glucose 98 mg/dL (74-106) 10/13/22 08:42 Liver Function Panel: Alanine Aminotransferase (ALT/SGPT) 28 U/L (14-59) 10/13/22 08: 42 Aspartate Amino Transf (AST/SGOT) 29 U/L (15-37) 10/13/22 08:42 Coagulation Panel: No Data to Display Cardiac Panel: No Data to Display Arterial Blood Gas: No Data to Display Venous Blood Gas: No Data to Display Pancreas Panel: No Data to Display Thyroid Panel: No Data to Display Infectious Disease: No Data to Display Blood Cultures: No Data to Display Toxicology Panel: No Data to Display Imaging and Studies Imaging and Studies Study information below may be from another EMR and interpreted by another provider. Please see original notes in EMR for more complete details. EKG Summary: EKG PATIENT NAME: Sonam Herring #: [id number] ORDERING PROVIDER: Olamide Palacios #: [id number] PRIMARY CARE PROVIDER:SHANE DEMPSEY MD DATE/TIME OF SERVICE: 05/03/22731 : 1945PERFORMING LOCATION: [facility] APPROVED REPORT Exam: Resting ECG Reason for Exam: preoperative Exam Patient Location: O HR:86 bpm ECG Measurements Heart Rate 86 AXIS W[place] [id number] P [id number] QRSd 93 QRS -90 QT 395 T7 QTc 472 Conclusion Atrial fibrillation...V-rate 74- 83, irreg A-activity Left anterior fascicular block...axis(240,-40), init forces inf Low voltage, extremity leads...all extremity leads <0.5mV <Electronically signed by ELDA TORRES MD in [place]> E-Sign Date: 05/03/22 E-Sign Time: 0900 Anesthesia Assessment and Plan Anesthesia History Personal History: No History of Anesthesia Complications Family History: No Family History of Anesthesia Complications Exercise Tolerance Exercise Tolerance: Metabolic Equivalents>4 Pertinent Negatives Pertinent Negatives: No Symptoms of GERD Cardiac & Pulmonary Exam Cardiac Exam: Normal S1/S2 Heart Sounds Pulmonary Exam: Clear Bilateral Breath Sounds and Active Dry Cough Implantable Cardiac Device Does patient have a Pacemaker or an ICD?: No Airway Exam Known Difficult Airway: No Mallampati Class: 3 Mouth Opening: Normal (> 3cm) Thyromental Distance: Greater than 3 cm Neck Range of Motion: Full ROM Neck Circumference: Normal Teeth Condition: Generalized Poor Dentition ASA Classification ASA Score: ASA 3 Emergency Case?: No NPO Status NPO Status: NPO Clears >2 hours, Solids >8 hours Anesthesia Plan Resuscitation Status: Full Code Anesthesia Technique: MAC Anesthesia Airway Planned: Natural Airway Monitors Used: Standard Monitors
[2022-10-15] MEDS: Tropicam./Phenyleph. (1/2.5%) 5 ML BTL OS ×3 (07:02→07:15)
[2022-10-15 07:20] VITALS: BMI 23.7
[2022-10-15] MEDS: Tetracaine 0.5% 4 ML BTL OS (08:10)
[2022-10-15] MEDS: Lidocaine 1% Pres-Free 5 ML VIAL (08:11)
[2022-10-15] MEDS: Balanced Salt Soln.-PLUS 500 ML BAG OP (08:12)
[2022-10-15] MEDS: Duovisc Viscoelastic System EACH 1 EACH (08:12)
[2022-10-15] MEDS: Phenylephrine/Lidocaine (15/10) MG/ML 1 ML VIAL (08:12)
[2022-10-15] MEDS: Povidone-Iodine Ophth 30 ML BTL (08:12)
[2022-10-15] MEDS: Polymyxin B/Trimethoprim Ophth Soln 10 ML BTL OS (08:15)
--- NOTE | 2022-10-15 08:33 | PDOC.DSDIS_ITS ---
Date of service: 10/15/22 Time of Service: 08:33 Discharge Plan Disposition Patient Disposition: Home Discharge Details Attending Provider: Jhony Baker Primary Care Provider: Missael Ordaz [place] Meds and New Rx's Prescriptions: No Action mesalamine [Apriso] 0.375 gram capsule,extended release 24hr 1.5 gm PO QAM levothyroxine 25 mcg capsule 25 mcg PO DAILY losartan 25 mg tablet 25 mg PO HS diltiazem HCl 60 mg capsule,extended release 12 hr 120 mg PO Q12H calcium carbonate [Tums] 300 MG tablet,chewable 300 mg PO PRN PRN ascorbic acid (vitamin C) [Vitamin C] 250 MG tablet,chewable 500 mg PO BID folic acid 1 MG tablet 1 mg PO DAILY Centrum Silver 1 EACH tablet 1 ea PO DAILY tacrolimus [Prograf] 1 MG capsule 2 mg PO DAILY cranberry conc-ascorbic acid 1 EACH capsule 2 ea PO BID estradiol 0.01 % (0.1 mg/gram) cream 1 applic VAGINAL DIRECTED Patient Comments: PLACE A PEA SIZED AMOUNT INSIDE VAGINAL OPENING AND URETHRA TWICE A WEEK AT NIGHT calcium citrate [Calcitrate] 200 mg (950 mg) Tablet 200 mg PO DAILY d-mannose 500 mg Capsule 500 mg PO DAILY magnesium gluconate 12.5 mg magne- sium (250 mg) Tablet 250 mg PO DAILY hydrocodone-acetaminophen 5-325 mg Tablet 1 tab PO BID PRN Xarelto 15 mg Tablet 15 mg PO DAILY Rx Instructions: must administer with evening meal Discharge Instructions Stand Alone Forms: Post-op Topical Cataract, Darrion Garcia (DSU) Discharge Orders Discharge Orders: Discharge Order (Routine); Ordered 10/15/22 Ordered By: Jhony Baker DS: Diagnosis Discharge Diagnosis (1) Nuclear age-related cataract, left eye: Status: Resolved (2) Cortical age-related cataract, left eye: Status: Resolved
[2022-10-15 08:35] VITALS: BP 156/86; PULSE 95; RESP 16; TEMP 36.2; O2SAT 99
--- NOTE | 2022-10-15 08:35 | ROE_ITS ---
Date of service: 10/15/22 Time of Service: 08:35 Operative Note Operative Note DATE OF PROCEDURE: 10/15/22 PRE-OP DIAGNOSIS: Nuclear/cortical cataract, left eye POST-OP DIAGNOSIS: same PROCEDURE: Cataract extraction using phacoemulsification with intraocular lens implant, left eye SURGEON: Jhony Baker ANESTHESIA TYPE: Local By Surgeon and MAC Refer to Anesthesia Record PATHOLOGY: none sent COMPLICATIONS: None Patient was transported to: same day Patient's condition: stable Implants: Zheng and Zheng Tecnis Eyhance [id number] Indications: Progressive decreased vision due to cataract, left eye Procedure Description: CATARACT SURGERY OPERATIVE REPORT PREOPERATIVE DIAGNOSIS: 1. Nuclear/cortical cataract, left eye POSTOPERATIVE DIAGNOSIS: Same OPERATION: 1. Cataract extraction using phacoemulsification with posterior chamber intraocular lens implant, left eye. IOL: IOL Link Trainer Maintenance Man/Model: Zheng & Zheng Tecnis Eyhance [id number] IOL Power: + 18.5 diopters IOL Serial Number: [id number] Optic Diameter: 6.0 mm Haptic/Overall Diameter: 13.0 mm PHACO INFO: FelipeSonim Technologieson Vision System with OZil and Active Fluidics Cumulative Dispersed Energy (CDE): 10.33 seconds SURGEON: Jhony Baker MD, MARBIN ANESTHESIA: Monitored A [facility] (MAC), with local sub-tenon's anesthetic infiltration COMPLICATIONS: None SPECIMENS: None INDICATIONS FOR PROCEDURE: The patient is a 77-year-old lady with history of diminished visual acuity in both eyes secondary to the development of bilateral cataracts. She has already undergone cataract surgery in her right eye and is doing well postoperatively. She now presents for cataract surgery of the left eye. See office notes for detailed information. PROCEDURE: The correct surgical eye was identified and marked as the left eye and the pupil was dilated in the preoperative area using mydriatics and cycloplegics. The dilated pupil size was 7.0 mm. The patient elected to proceed without oral sedation. The patient was brought to the operating room where cardiopulmonary monitoring was instituted and surgical time-out was performed, confirming the correct operative eye and IOL power. Topical anesthesia was administered and ophthalmic povidone-iodine 5% was instilled into the conjunctival fornices. The namita-ocular area was prepped with Betadine 10% solution and draped in the usual sterile fashion for intraocular surgery, including an aperture drape. A Tegaderm transparent film dressing was cut in half and used to cover the lashes and lid margins. Care was taken to sequester the lashes and lid margins under the Tegaderm dressing. A lid speculum was placed between the lids of the operative eye and the Felipe LuxOR Revalia operating microscope was maneuvered into position. Lorrie scissors were then used to make a conjunctival buttonhole approximately 6mm posterior to the limbus in the inferonasal quadrant. Blunt dissection was carried out to expose bare sclera, and a blunt-tipped sub-tenon?s anesthesia cannula was introduced and passed posteriorly along the globe where non- preserved plain lidocaine was injected into posterior sub-Tenon?s space. A sideport knife was used to make a paracentesis port. Intraocular phenylephrine/lidocaine was injected into the anterior chamber.. The anterior chamber was filled with viscoelastic. A keratome knife was used to construct a 2-plane near-clear corneal tunnel extending 2.0mm into clear cornea. A flap was raised on the anterior capsule and capsulorhexis forceps were used to complete a continuous curvilinear capsulorhexis of 5.0 mm. Balanced salt solution was then used to perform cortical cleaving hydrodissection and nuclear hydrodelineation until the lens could be freely rotated within the capsular bag. The lens nucleus was then disassembled and removed within the capsular bag and iris plane using phacoemulsification. Residual cortical material was removed using the irrigation/aspiration handpiece. The posterior capsule was carefully polished to remove as much residual lens epithelial cells as safely possible. The capsular bag was then inflated and the anterior chamber deepened with viscoelastic. The lens implant described above was inserted into the capsular bag using the Zheng and Zheng Simplicity pre-loaded injector. A Kuglen hook was used to dial the IOL into position. Residual viscoelastic was then removed first from posterior to the IOL, then from the anterior chamber using the I/A handpiece. The lens implant was noted to center nicely within the capsular bag. The incisions were stromally hydrated, and the anterior chamber was reformed using BSS. The incisions were checked with a Weck spear and found to be secure. Several drops of ophthalmic povidone- iodine 5% were then applied to the eye followed by two drops of Polytrim and Prednisolone acetate 1%. solution. The drapes were removed and a clear plastic protective eye shield was placed over the eye. The patient was then returned to Same Day Surgery in stable condition.
--- NOTE | 2022-10-15 09:32 | W.ANESPOSTOP ---
Postoperative Evaluation Date, Time and Location Date Performed: 10/15/22 Time Performed: 09:32 Patient Location: Day Surgery Unit Vital Signs Most Recent Imported Vital Signs: Most Recent Vital Signs Temp Pulse Resp BP Pulse Ox 36.2 C L 95 H 16 156/86 H 99 10/15/22 08:35 10/15/22 08:35 10/15/22 08:35 10/15/22 08:35 10/15/22 08:35 Pain Score Most Recent Pain Score: Most Recent Pain Score Pain Level 0 10/15/22 08:35 Assessment Mental Status: Awake (Alert & Oriented to Patient Baseline) Airway and Respiratory Function: Patent airway with normal (patient baseline) respiratory exam Cardiovascular Function: Hemodynamically Stable Hydration Status: Adequately Hydrated Nausea & Vomiting: No Nausea or Vomiting Pain: Pt. Denies Any Pain Peripheral Nerve Block: Other (Local by Dr. Baker)
== END 2022-10-15 08:50 | disposition home or self-care (01) ==
LOC: SUR 06:47
PROVIDERS: PCP Internal Medicine; Visit Provider Ophthalmology
PROC: (CPT 66984; principal; 2022-10-15 08:30)
DX: H25.12 Age-related nuclear cataract, left eye (principal); H25.012 Cortical age-related cataract, left eye; Z98.41 Cataract extraction status, right eye
CPT/HCPCS: 66984; V2632

== ENCOUNTER 2022-10-29 01:10 | Outpatient (CLI) | payer MEDICARE, BC, SELFPAY ==
--- NOTE | 2022-10-29 08:50 | DI.MAMMO_ITS ---
Exam(s) MAMMO SCREENING EXAM: MAMMO SCREENING CLINICAL HISTORY: screening, Z12.39 TECHNIQUE: Mammograms were interpreted according to the usual protocol including computer analysis w [employer] CAD system, tomosynthesis and C-view imaging. COMPARISON: 2013 through 2021 FINDINGS: The breasts are composed of mainly fatty density , Breast Density category A. No suspicious masses or suspicious microcalcifications are seen. No skin thickening or abnormal axillary lymph nodes are seen. There has been no significant change from prior exams. IMPRESSION: BI-RADS Category 1, Negative mammogram Yearly screening mammography is recommended. Breast Density - Category A, fatty density. A negative radiographic report should not delay biopsy if a dominant or clinically suspicious mass is present. Up to ten percent of cancers are not identified on mammography. A negative report may reinforce clinical impression. Adenosis and dense breasts may obscure an underlying neoplasm. False positive reports average 6 to 10%. Patient will receive a letter notifying them of these results.
== END 2022-10-29 01:30 ==
LOC: DI 01:10
PROVIDERS: PCP Internal Medicine; Visit Provider Obstetrics & Gynecology Gynecology
DX: Z12.31 Encounter for screening mammogram for malignant neoplasm of breast (principal)
CPT/HCPCS: 77063; 77067

== ENCOUNTER 2023-03-08 02:01 | Outpatient (CLI) | payer MEDICARE, BC, SELFPAY ==
[2023-03-08 09:27] LABS: HCT 41.5 % (36.0-46.0); HGB 14.3 g/dL (11.2-15.7); MCH 31.3 pg (27.0-33.0); MCHC 34.5 % (32.0-36.0); MCV 91 fL (80-95); MPV 8.1 fL (8.0-11.0); Platelet Count 269 10^3/uL (130-400); RBC 4.57 10^6/uL (3.93-5.22); RDW 13.9 % (11.7-14.6); RDW-SD 46.4 fL; Reticulocyte 1.6 % (0.5-2.4); WBC 6.19 10^3/uL (4.4-10.8)
[2023-03-08 09:38] LABS: Bilirubin Negative (Negative); Blood Negative (Negative); Clarity Clear (Clear); Glucose Negative (Negative); Ketones Negative (Negative); Leukocyte Esterase Negative (Negative); Nitrite Negative (Negative); Specific Gravity 1.015 (1.005-1.025); Urobilinogen 0.2 mg/dL (Up to 0.2)
[2023-03-08 09:46] LABS: Bacteria Rare HPF (Negative); C & S Indicated? No/Sq. Contamination; Casts Negative LPF (Negative); Crystals Negative HPF (Negative); Epithelial Cells Many HPF (Negative); Mucus Trace (Negative); RBC 0-2 HPF (0-2)
[2023-03-08 09:51] LABS: Hemoglobin A1C 5.3 % (<5.7)
[2023-03-08 09:52] LABS: ALT 23 U/L (14-59); AST 25 U/L (15-37); Albumin 3.5 g/dL (3.4-5.0); Alkaline Phosphatase 67 U/L (46-116); Anion Gap 7.6 mmol/L (3-11); BUN 23 mg/dL (7-18); Bilirubin, Total 0.6 mg/dL (0.2-1.0); CO2 27.4 mmol/L (21.0-32.0); CREATININE 1.2 mg/dL (0.55-1.02); Calcium 9.9 mg/dL (8.5-10.1); Chloride 100 mmol/L (98-107); Estimated GFR 46.91 (mL/min/1.73m2); Glucose 100 mg/dL (74-106); Magnesium 1.5 mg/dL (1.8-2.4); PHOSPHORUS 3.3 mg/dL (2.6-4.7); Potassium 3.9 mmol/L (3.5-5.1); Sodium 135 mmol/L (136-145); Total Protein 7.4 g/dL (6.4-8.2); Uric Acid 5.8 mg/dL (2.6-6.0)
[2023-03-08 10:07] LABS: COMMENT (LAB VIEW ONLY) 39.21 mg/dL; PROTEIN 49.3 mg/dL; Prot/Crea Ur Ratio 1.25
[2023-03-08 10:07] LABS: Calculated LDL 101 mg/dL (<100); Cholesterol 199 mg/dL (<200); HDL Cholesterol 75 mg/dL (40-60); Triglyceride 119 mg/dL (<150)
[2023-03-08 18:31] LABS: Parathyroid Hormone,Intact 70 pg/mL (19-88)
[2023-03-08 20:15] LABS: Vitamin D 25 Total 42.7 ng/mL (30-100)
[2023-03-09 09:52] LABS: Calcium (Random Urine) 7.4 mg/dL (See Note); Magnesium Random Urine 5.8 mg/dL (See Note); Phosphorus Urine 11.9 mg/dL (See Note)
[2023-03-09 13:40] LABS: Tacrolimus 6.9 ng/mL (See Note)
[2023-03-10 14:41] LABS: BKV DNA Detect/Quant, U Undetected IU/mL (Undetected)
== END 2023-03-08 02:02 | disposition home or self-care (01) ==
LOC: LBO 02:02
PROVIDERS: PCP Internal Medicine; Visit Provider Internal Medicine Nephrology
DX: Z94.0 Kidney transplant status (principal); Z79.899 Other long term (current) drug therapy; T86.19 Other complication of kidney transplant; E55.9 Vitamin D deficiency, unspecified
CPT/HCPCS: 36415; 80053; 80061; 82306; 83735; 85027; 85045; 87799; 80197; 81003; 81015; 82340; 82565; 82652; 83036; 83970; 84100; 84105; 84156; 84550

== ENCOUNTER 2023-06-09 04:13 | Outpatient (CLI) | payer MEDICARE, BC, SELFPAY ==
--- OUTSIDE RECORDS SUMMARY | 2023-06-09 04:15 | XMS_ITS | Continuity of Care Document ---
Author Name Unknown Organization [facility] Address [address] [place] [address] Care Team Providers Care Lap Winding Machine Operator Name Role Phone Missael Bañuelos Primary Care Physician Encounter [facility] Date(s): 06/01/22 - 06/01/[address] [id number] Discharge Disposition: Home or Self Care Attending Physician: Gracia Bonilla PATTERNMAKER GRADER Admitting Physician: Gracia Bonilla PATTERNMAKER GRADER Referring Physician: Gracia Bonilla PATTERNMAKER GRADER Assessment and Plan Future Appointments Social History Social History Type Response Sex Female Patient Care team information Personnel Name: Missael Bañuelos MD Address: Address: [address] [place] [id number]
--- OUTSIDE RECORDS SUMMARY | 2023-06-09 04:15 | XMS_ITS | Continuity of Care Document ---
Author Name Unknown Organization [facility] Address [address] [place] [address] Care Team Providers Care Ratings Analyst Name Role Phone Sushma MAKMissael Primary Care Physician [facility] - 06/09/[address] [address] Encounter Diagnosis Epistaxis(Discharge Diagnosis) - 06/09/22 Discharge Disposition: Home or Self Care Attending Physician: Magdalena Shields MD Admitting Physician: Magdalena Shields MD Allergies, Adverse Reactions, Alerts Substance Reaction Severity Status Cipro Moderate Active Assessment and Plan Future Appointments Functional Status 06/09/22 Recent Travel History No recent travel Other exposure to Infectious Disease Non e Mental Status 06/09/22 Eye Opening Response Davis Spontaneous ly Best Verbal Response [place] Oriented Best Motor Response Davis Obeys comman ds [place] Coma Score 15 Vital Signs Most recent to oldest [Reference Range]: 1 2 3 Temperature Temporal Artery [36-38 Deg C] 37 Deg C (06/09/22 7:11 PM) Peripheral Pulse Rate [60-100 bpm] 109 bpm *HI* (06/09/22 9:14 PM) 122 bpm *HI* (06/09/22 8:00 PM) 125 bpm *HI* (06/09/22 7:11 PM) Respiratory Rate [12-24 br/min] 18 br/min (06/09/22 9:14 PM) 22 br/min (06/09/22 8:00 PM) 20 br/min (06/09/22 7:11 PM) Blood Pressure [90-140/60-90 mmHg] 151/82mmHg *HI* (06/09/22 9:14 PM) 129/69mmHg (06/09/22 8:00 PM) 166/83mmHg *HI* (06/09/22 7:11 PM) Weight 52.60 kg (06/09/22 7:11 PM) Weight Dosing 52.60 kg (06/09/22 7:31 PM) Height 152.470 cm (06/09/22 7:11 PM) Height/Length Dosing 152.470 cm (06/09/22 7:31 PM) Body Mass Index 23.000 kg/m2 (06/09/22 7:11 PM) Social History Social History Type Response Sex Female Hospital Discharge Instructions Patient Education 06/09/2022 19:59:26 Nosebleed, Adult Nosebleed, Adult A nosebleed is when blood comes out of the nose. Nosebleeds are common. Usually, they are not a sign of a serious condition. Nosebleeds can happen if a blood vessel in your nose starts to bleed or if the lining of your nose (mucous membrane) cracks. They are commonly caused by: ??? Allergies. ??? Colds. ??? Picking your nose. ??? Blowing your nose too hard. ??? An injury from sticking an object into your nose or getting hit in the nose. ??? Dry or cold air. Less common causes of nosebleeds include: ??? Toxic fumes. ??? Something abnormal in the nose or in the air-filled spaces in the bones of the face (sinuses). ??? Growths in the nose, such as polyps. ??? Blood thinners or conditions that cause blood to clot slowly. ??? Certain illnesses or procedures that irritate or dry out the nasal passages. Follow these instructions at home: When you have a nosebleed: ??? Sit down and tilt your head slightly forward. ??? Use a clean towel or tissue to pinch your nostrils under the bony part of your nose. After 5 minutes, let go of your nose and see if bleeding starts again. Do not release pressure before that time. If there is still bleeding, repeat the pinching and holding for 5 minutes or until the bleeding stops. ??? Do not place tissues or gauze in the nose to stop the bleeding. ??? Avoid lying down and avoid tilting your head backward. That may make blood collect in the throat and cause gagging or coughing. ??? Use a nasal spray decongestant to help with a nosebleed as told by your health care provider. After a nosebleed: ??? Avoid blowing your nose or sniffing for a number of hours. ??? Avoid straining, lifting, or bending at the waist for several days. You may go back to other normal activities as you are able. ??? If you are taking aspirin or blood thinners and you have nosebleeds, talk to your health care provider. These medicines make bleeding more likely. ??? Ask your health care provider if you should stop taking the medicines or if you should adjust the dose. ??? Do not stop taking medicines that your health care provider has recommended unless he or she tells you to stop taking them. ??? If your nosebleed was caused by dry mucous membranes, use [id number] saline nasal spray or gel and a humidifier as told by your health care provider. This will keep the mucous membranes moist and allow them to heal. If you need to use one of these products: ??? Choose one that is water-soluble. ??? Use only as much as you need and use it only as often as needed. ??? Do not lie down right after you use it. ??? If you get nosebleeds often, talk with your health care provider about medical treatments. Options may include: ??? Nasal cautery. This treatment stops and prevents nosebleeds by using a chemical swab or electrical device to lightly burn tiny blood vessels inside the nose. ??? Nasal packing. A gauze or other material is placed in the nose to keep constant pressure on thebleeding area. Contact a health care provider if you: ??? Have a fever. ??? Get nosebleeds often or more often than usual. ??? Bruise very easily. ??? Have a nosebleed from having something stuck in your nose. ??? Have bleeding in your mouth. ??? Vomit or cough up brown material. ??? Have a nosebleed after you start a new medicine. Get help right away if: ??? You have a nosebleed after a fall or a head injury. ??? Your nosebleed does not go away after 20 minutes. ??? You feel dizzy or weak. ??? You have unusual bleeding from other parts of your body. ??? You have unusual bruising on other parts of your body. ??? You become sweaty. ??? You vomit blood. Summary ??? A nosebleed is when blood comes out of the nose. Common causes include allergies, an injury to the nose, or cold or dry air. ??? Initial treatment includes applying pressure for 5 minutes. ??? Moisturizing the nose with saline nasal spray or gel after a nosebleed may help prevent future bleeding. ??? Get help right away if your nosebleed does not go away after 20 minutes. This information is not intended to replace advice given to you by your health care provider. Make sure you discuss any questions you have with your health care provider. Document Revised: 02/07/2020 Document Reviewed: 02/07/2020 [employer] Patient Education ?? 2021 [employer]. Follow Up Care 06/09/2022 19:11:16 With:Martin Gonzalez MD Address: Otolaryngology [address] [place] [address] [place] [address] When:1 month Physician Emergency department Note * Magdalena Shields MD: PERFORM Event Display: ED Note Physician Authored Date: [id number] MIRELA CONTE :1945 Age:77 years Sex:Female Visit Date:06/09/2022 Primary Care Physician: Missael Bañuelos MD Basic Information Time Seen: Magdalena Shields MD / 06/09/2022 20:36 Chief Complaint Patient is pooring blood from left nare. ??On xaralto x 3weeks. ??Patient also AFIB x 3 weeks. ??Patient was picking her noss History Of Present Illness: pt picked her nose earlier and then bleeding started. pt is on xarelto for the last 3 weeks for afib. pt had a nose bleed in mar with just being on aspirin.?? Patient's had tried to stop bleeding??prior to arrival without any success.?? He had tried ice and pressure.?? pt had fallen 1-2 weeks ago and has bruising of her left knee and leg, pt reports she has had xray that was fine just cont'd soreness with continued ecchymosis, area itchy she reports. Review of Systems: see hpi for ros Physical Exam Vitals & Measurements T:??37?C ??(Temporal Artery)?? HR:??109??(Peripheral)?? RR:??18?? BP:??151/82?? SpO2:??100%?? HT:??152.470??cm?? WT:??52.60??kg?? BMI:??23.000?? O2 Therapy:??Room air?? General: Alert and oriented, well nourished,?No??acute distress Eye: PER,?Normal??conjunctiva, No scleral icterus HENT: Normocephalic?Normal?? hearing??positive bleeding from left nares Respiratory:??Respiration??no distress??no increased work of breathing Chest: wall excursion wnl no abnormal movements no obvious deformities Musculoskeletal:?Normal?? range of motion and strength,?No??tenderness,?No??swelling Skin: Skin is warm, dry and pink,?No??rashes,??positive ecchymosis of the left knee and??calf and ankle area with Neurologic: Awake, alert and oriented X4 Psychiatric: Cooperative, appropriate mood and affect Medical Decision Making: For MDM please see under assessment and plan Procedure No Qualifying Data Assessment/Plan 1.??Epistaxis??R04.0 Tried nasal clamping area??without success??tried??packing with??Afrin for several minutes??helped??decrease amount of bleeding??wound seal used??to area which resulted in hemostasis.?? pt did not want packing that would stay in nose.?? pt to follow up with ent Ordered: Discharge Patient, 06/09/22 20:59:00 EST, Home Independently, Constant Indicator ?? Patient Education Nosebleed, Adult Follow Up With When Contact Information Martin Gonzalez MD Within 1 month Otolaryngology [address] [place] [address]- Additional Instructions: Problem List/Past Medical History Ongoing No qualifying data Historical No qualifying data Allergies Cipro Electronically Signed on 06/10/22 12:29 AM Magdalena Shields MD Emergency department Discharge instructions * Magdalena Shields MD: PERFORM Event Display: ED Discharge Information Authored Date: [id number] MIRELA CONTE :1945 Age:77 years Sex:Female Visit Date:06/09/2022 Primary Care Physician: Missael Bañuelos MD Discharge Instructions We would like to thank you for allowing us to assist you with your healthcare needs. The following includes patient education materials and information regarding your injury/illness. Diagnosis from Today's Visit Epistaxis Discharge Vitals Temperature??(Temporal Artery) 98.6 ??F (37 ??C) Heart Rate??(Peripheral) 122 Respiratory Rate?? 22 Blood Pressure?? 129/69?? Height?? 60.03 in (152.470 cm) Weight?? 115.98 lb (52.60 kg) BMI?? 23.000 Allergies Cipro What to Do Next Instructions from Your Care Team Call [phone]??tomorrow to schedule an ENT appointment with Dr. Gonzalez.?? If you worsen return to the emergency department. You Need to Schedule the Following Appointments Follow Up with??Martin Gonzalez MD When:??Within 1 month Where: Otolaryngology [address] [place] [address]- Upcoming Scheduled Appointments Tuesday 9:00 AM EDT ?? You were treated today on an emergency basis; it may be yoon to contact your primary care provider to notify them of your visit today. You may have been referred to your regular doctor or a specialist, please follow up as instructed. If your condition worsens or you can't get in to see the doctor, contact the Emergency Department. Education Materials Nosebleed, Adult A nosebleed is when blood comes out of the nose. Nosebleeds are common. Usually, they are not a sign of a serious condition. Nosebleeds can happen if a blood vessel in your nose starts to bleed or if the lining of your nose (mucous membrane) cracks. They are commonly caused by: ? Allergies. ? Colds. ? Picking your nose. ? Blowing your nose too hard. ? An injury from sticking an object into your nose or getting hit in the nose. ? Dry or cold air. Less common causes of nosebleeds include: ? Toxic fumes. ? Something abnormal in the nose or in the air-filled spaces in the bones of the face (sinuses). ? Growths in the nose, such as polyps. ? Blood thinners or conditions that cause blood to clot slowly. ? Certain illnesses or procedures that irritate or dry out the nasal passages. Follow these instructions at home: When you have a nosebleed: ? Sit down and tilt your head slightly forward. ? Use a clean towel or tissue to pinch your nostrils under the bony part of your nose. After 5 minutes, let go of your nose and see if bleeding starts again. Do not release pressure before that time. If there is still bleeding, repeat the pinching and holding for 5 minutes or until the bleeding stops. ? Do not place tissues or gauze in the nose to stop the bleeding. ? Avoid lying down and avoid tilting your head backward. That may make blood collect in the throat and cause gagging or coughing. ? Use a nasal spray decongestant to help with a nosebleed as told by your health care provider. After a nosebleed: ? Avoid blowing your nose or sniffing for a number of hours. ? Avoid straining, lifting, or bending at the waist for several days. You may go back to other normalactivities as you are able. ? If you are taking aspirin or blood thinners and you have nosebleeds, talk to your health care provider. These medicines make bleeding more likely. ? Ask your health care provider if you should stop taking the medicines or if you should adjust the dose. ? Do not stop taking medicines that your health care provider has recommended unless he or she tells you to stop taking them. ? If your nosebleed was caused by dry mucous membranes, use juko-cwn-rbtvjis saline nasal spray or gel and a humidifier as told by your health care provider. This will keep the mucous membranes moist and allow them to heal. If you need to use one of these products: ? Choose one that is water-soluble. ? Use only as much as you need and use it only as often as needed. ? Do not lie down right after you use it. ? If you get nosebleeds often, talk with your health care provider about medical treatments. Options may include: ? Nasal cautery. This treatment stops and prevents nosebleeds by using a chemical swab or electrical device to lightly burn tiny blood vessels inside the nose. ? Nasal packing. A gauze or other material is placed in the nose to keep constant pressure on the bleeding area. Contact a health care provider if you: ? Have a fever. ? Get nosebleeds often or more often than usual. ? Bruise very easily. ? Have a nosebleed from having something stuck in your nose. ? Have bleeding in your mouth. ? Vomit or cough up brown material. ? Have a nosebleed after you start a new medicine. Get help right away if: ? You have a nosebleed after a fall or a head injury. ? Your nosebleed does not go away after 20 minutes. ? You feel dizzy or weak. ? You have unusual bleeding from other parts of your body. ? You have unusual bruising on other parts of your body. ? You become sweaty. ? You vomit blood. Summary ? A nosebleed is when blood comes out of the nose. Common causes include allergies, an injury to the nose, or cold or dry air. ? Initial treatment includes applying pressure for 5 minutes. ? Moisturizing the nose with saline nasal spray or gel after a nosebleed may help prevent future bleeding. ? Get help right away if your nosebleed does not go away after 20 minutes. This information is not intended to replace advice given to you by your health care provider. Make sure you discuss any questions you have with your health care provider. Document Revised: 02/07/2020 Document Reviewed: 02/07/2020 Elsevier Patient Education ?? 2021 [employer] Patient/Filling Hauler Signature Patient Name:MIRELA CONTE I have received this information and my questions have been answered. Patient/Filling Hauler Name: Patient/Filling Hauler Signature: Relationship to Patient: Witness Name/Signature: Date: Electronically Signed on: 06/09/2022 21:01 ESTSigned by:[facility] Emergency department Note * Gianna Tafoya: PERFORM Event Display: ED Notes Authored Date: [id number] Patient Care team information Care Team Personnel Name: Missael Bañuelos MD Position: Physician Member Role: Primary Care Physician Address: Address: [address] [place] [id number] Name: Tesha Moyer RN Position: Nurse Member Role: ED Nurse Name: Magdalena Shields MD Position: Physician Member Role: ED Physician Address: Address: [address] [place] [address] Care Team Related Persons Name: ANDRADE CONTE
--- OUTSIDE RECORDS SUMMARY | 2023-06-09 04:15 | XMS_ITS | Continuity of Care Document ---
Author Name Unknown Organization [facility] Address [address] [place] [address] Care Team Providers Care Industrial Economist Name Role Phone Missael Bañuelos Primary Care Physician [facility]counter [facility] Date(s): 05/07/22 - 05/07/[address] [address] Discharge Disposition: Home or Self Care Attending Physician: Missael Bañuelos MD Admitting Physician: Missael Bañuelos MD Referring Physician: Missael Bañuelos MD Social History Social History Type Response Sex Female Patient Care team information Personnel Name: Missael Bañuelos MD Address: Address: [address] [address]- [place]
--- OUTSIDE RECORDS SUMMARY | 2023-06-09 04:15 | XMS_ITS | Continuity of Care Document ---
Author Name Unknown Organization [facility] Address [address] [place] [address] Care Team Providers Care Associate Accountant Name Role Phone Missael Bañuelos Primary Care Physician [facility] Date(s): 05/07/22 - 05/07/[address] [address] Discharge Disposition: Home or Self Care Attending Physician: Missael Bañuelos MD Admitting Physician: Missael Bañuelos MD Referring Physician: Missael Bañuelos MD Social History Social History Type Response Sex Female Note * Hannah Rodriguez: PERFORM Event Display: Event Monitor Authored Date: [id number] MIRELA CONTE 1945 [id number] Patient placed on Zio Event Monitor 7 dayson 05/07/2022 Electronically Signed on 05/07/22 09:56 AM Hannah Rodriguez Patient Care team information Personnel Name: Missael Bañuelos MD Address: Address: [address] [address]
--- OUTSIDE RECORDS SUMMARY | 2023-06-09 04:15 | XMS_ITS | Continuity of Care Document ---
Author Name Unknown Organization [facility] Address [address] [place] [address] Care Team Providers Care Radiotelephone Technical Operator Name Role Phone Missael Bañuelos Primary Care Physician Encounter [facility] [id number] Date(s): 07/07/22 - 07/07/22 [facility] [address] [place] [address] Encounter Diagnosis Afib(Discharge Diagnosis) - 07/07/22 Discharge Disposition: Home or Self Care Attending Physician: Willie Wilkins MD Allergies, Adverse Reactions, Alerts Substance Reaction Severity Status Cipro Moderate Active Functional Status 07/07/22 Other exposure to Infectious Disease Non e Medications Xarelto 20 mg oral tablet 20 mg = 1 tab, Oral, every evening, with evening meal, # 30 tab, 0 Refill(s) Start Date: 07/07/22 Status: Ordered Vital Signs Most recent to oldest [Reference Range]: 1 Peripheral Pulse Rate [60-100 bpm] 90 bp m (07/07/22 8:47 AM) Blood Pressure [90-140/60-90 mmHg] 114/7 1mmHg (07/07/22 8:47 AM) Weight 54.9 kg (07/07/22 8:47 AM) Weight Measured (lbs) 121.034 lb (07/07/22 8:47 AM) Social History Social History Type Response Tobacco Never tobacco user T obacco Use:. Sex Female Cardiology Outpatient Note * Willie Wilkins MD: PERFORM Event Display: Cardiology Office Clinic Note Authored Date: [id number] MIRELA CONTE :1945 Age:77 years Sex:Female Visit Date:07/07/2022 Primary Care Physician: Missael Bañuelos MD History of Present Illness Cardiac problems: 1. ??Atrial fibrillation, on Xarelto with subsequent nosebleed after picking nose. 2.?? Status post renal transplant with normal renal function 3. ??Hypertension 4. ??Thyroid disease?? 5. 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 This is a 77-year-old woman is new to the practice. ??She is completely asymptomatic with atrial fibrillation/flutter.?? She??was notified that she had??an arrhythmia in April when [facility] was [facility]; otherwise she would have been unaware. ??There has been no chest pain, orthopnea, PND, pal pitations,??syncope, dyspnea exertion, or lower extremity edema.?? Patient does complain of some left-sided lower extremity edema??that she has had for quite some time??and for which she uses compression stockings over the past 12 years, but nothing is changed lately. ?? In the summertime she and her walk a mile every day and she feels healthy with that.?? She did have an echocardiogram performed in April which was reassuring, other than moderate to severe biatrial dilation.. ??She also had a Zio patch which was??confirmatory for atrial fibrillation??as it was constant throughout the monitoring period). ?? Was started on Xarelto and then that was discontinued after she fell down and injured her knee and had quite a bit of bruising in her foot,??she had a nosebleed.?? Dr. Ordaz had planned to restart??the Xarelto at some point, and plans to see her??in early July. Review of Systems A complete review of systems is negative other than as noted in the history of present illness. Physical Exam Vitals & Measurements HR:??90??(Peripheral)?? BP:??114/71?? SpO2:??99%?? WT:??54.9??kg?? HEENT: Normocephalic, atraumatic Respirations: Clear to auscultation bilaterally with no wheezes rubs or rhonchi Cardiac: Irregularly irregular, normal S1, S2, no murmurs gallops or rubs Abdomen: Nontender nondistended normal active bowel sounds Extremities: 2+ dorsalis pedis pulses bilaterally with no significant edema Assessment/Plan Afib??I48.91 Ordered: Xarelto 20 mg oral tablet, 20 mg = 1 tab, Oral, every evening, with evening meal, # 30 tab, 0 Refill(s) CV ECG Clinic, 07/07/22 8:46:00 EDT, Routine, Reason: Other (please specify), Stop date and time 07/07/22 8:46:00 EDT, Afib, ORD_SET_REQ_DT_RANGE, Lyssa's Internal Person Id Follow-Up Appointment Request [facility], *Est. 09/06/22 +/- 14 days, Future Order, In [facility] ?? Data reviewed: 12/07/2021: Holter monitor, read by Dr. Ordaz:??Sinus rhythm??with PACs and PVCs. ??No clear evidence of atrial fibrillation. 05/07/2022:??Echocardiogram: Ejection fraction 65 to 70% normal wall motion. ??Atrial fibrillation limits diastolic??assessment.?? Severe dilation of left atrium and moderate dilation of the right atrium.?? There is mild AI without . ??There is mild to moderate??TR with mild pulmonary hypertension,??RV systolic pressure estimated at 40 mmHg. 07/07/2022: EKG: Atrial fibrillation/flutter at 83 bpm.?? There is incomplete??right bundle branch block with QRS with 99 ms. ??No obvious ischemia or prior infarct. ?? 77-year-old woman with atrial fibrillation. ?? Atrial fibrillation: She needs to be anticoagulated if at all possible.?? She tells me she has normal renal function. ??She is under 80 years of age, so should be on normal dosing; this would be Xarelto 20 mg a day, or Eliquis 5 mg twice daily.?? I always prefer Eliquis as it has a decreased risk of bleeding compared to Xarelto (particularly GI bleeding), but she may prefer the once daily dosing.??She prefers to have some Xarelto at home,??so we will simply continue that prescription. ?? When she been appropriately anticoagulated for 6 weeks, we can try cardioversion. ??She understandsthat is not safe to try that until she is been anticoagulated. ??Given her biatrial dilation, I worry that we are not going to be able to restore sinus rhythm; this may have been??a chronic problem and asymptomatic, for some time, but it is worth??at least one effort. ??We may also talk about antiarrhythmics.?? I think the fewer medications we give her in the context of her renal transplant,??thebetter,??but I think she also may gain quality of life if we can get her back??to sinus??rhythm. ?? We will get back together in a couple of months, 2 weeks after the cardioversion, and we can see where we are at that point.?? No other changes immediately. ??She remains asymptomatic. ?? Hypertension:??Blood pressure appears to be under good control with current regimen. ??No changes to recommend there. ?? Thank you for the courtesy of the consultation. ??It was a pleasure to meet Mirela and her who accompanied her today. Problem List/Past Medical History Ongoing No qualifying data Historical No qualifying data Medications Xarelto 20 mg oral tablet, 20 mg= 1 tab, Oral, every evening Allergies Cipro Social History Electronic Cigarette/Vaping Electronic Cigarette Use: Never. Tobacco Never tobacco user Tobacco Use:. Electronically Signed on 07/07/22 09:37 AM Willie Wilkins MD Patient Care team information Care Team Personnel Name: Sushma MAKMissael MD Position: Physician Member Role: Primary Care Physician Address: Address: [address] [place] [phone] [place] Care Team Related Persons Name: ANDRADE CONTE
--- OUTSIDE RECORDS SUMMARY | 2023-06-09 04:15 | XMS_ITS | Continuity of Care Document ---
Author Name Unknown Organization [facility] Address [address] [place] [address] Care Team Providers Care Wellness Nurse Rn Name Role Phone [place] IPMissael HENDERSON Primary Care Physician [facility] - 09/13/[address] [id number] Encounter Diagnosis Unspecified atrial fibrillation(Final) - Discharge Disposition: Home or Self Care Attending Physician: Willie Wilkins MD Admitting Physician: Willie Wilkins MD Referring Physician: Willie Wilkins MD Allergies, Adverse Reactions, Alerts Substance Reaction Severity Status Cipro Moderate Active Functional Status 09/13/22 ADLs Independent Recent Travel History No recent travel Other exposure to Infectious Disease Non e Medications Apriso 0.375 g oral capsule, extended release 0.75 g = 2 cap, Oral, every morning, 0 Refill(s) Start Date: 08/02/22 Status: Ordered Centrum Silver 1 tab, BID, 0 Refill(s) Start Date: 08/02/22 Status: Ordered cranberry oral capsule See Instructions, 0 Refill(s) Start Date: 08/02/22 Status: Ordered dilTIAZem 120 mg/24 hours oral tablet, extended release 120 mg = 1 tab, Oral, Daily, diltiazem hcl, 0 Refill(s) Start Date: 08/02/22 Status: Ordered Envarsus XR 1 mg oral tablet, extended release 0 Refill(s) Start Date: 08/02/22 Status: Ordered Estrace Vaginal 0.1 mg/g vaginal cream See Instructions, lace pea-sized amount inside vagina and urethra twice a week at night, 0 Refill(s) Start Date: 08/02/22 Status: Ordered Euthyrox 25 mcg (0.025 mg) oral tablet 25 mcg = 1 tab, Daily, 0 Refill(s) Start Date: 08/02/22 Status: Ordered folic acid 1 mg oral tablet 1 mg = 1 tab, Oral, Daily, 0 Refill(s) Start Date: 08/02/22 Status: Ordered HYDROcodone-acetaminophen BID, PRN as needed for pain, 0 Refill(s) Start Date: 08/02/22 Status: Ordered losartan 25 mg oral tablet 25 mg = 1 tab, Oral, Daily, 0 Refill(s) Start Date: 08/02/22 Status: Ordered magnesium gluconate 250 mg oral tablet 250 mg 1 tab, Daily, 0 Refill(s) Start Date: 08/02/22 Status: Ordered Vitamin C 500 mg oral tablet 500 mg = 1 tab, Oral, BID, 0 Refill(s) Start Date: 08/02/22 Status: Ordered Xarelto 20 mg oral tablet 20 mg = 1 tab, Oral, every evening, with evening meal, # 30 tab, 0 Refill(s) Start Date: 07/07/22 Status: Ordered Problem List Condition Confirmation Course Effective Dates Status H ealth Status Informant Acute recurrent cystitis Confirmed Active Adjustment disorder with physical complaints Confirmed Active Alopecia Confirmed Active Atrial premature beats Confirmed Active Carpal tunnel syndrome of left wrist Confirmed Active Cataracts 1 Confirmed Active Condyloma acuminata of cervix Confirmed Active Crohn's disease of large bowel Confirmed Active Diffuse goiter Confirmed Active ESRD - End stage renal disease Confirmed Active History of adenomatous polyp of colon Confirmed Active History of renal transplant 2 Confirmed Active Hyperlipidemia Confirmed Active Hypertension Confirmed Active Lumbago Confirmed Active Osteoporosis Confirmed Active Paroxysmal atrial fibrillation Confirmed Active Pedal edema Confirmed Active Restless legs syndrome Confirmed Active Urinary frequency Confirmed Active 1bilateral 2On Left. 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 Procedures Procedure Date Related Diagnosis Body Site Status Cataract surgery 05/16/22 Complete d Kidney transplant 04/24/98 Complet ed Vital Signs Most recent to oldest [Reference Range]: 1 2 3 Temperature Temporal Artery [36-38 Deg C] 36.1 Deg C (09/13/22 12:45 PM) 36.0 Deg C (09/13/22 12:20 PM) 36.5 Deg C (09/13/22 11:01 AM) Temperature Temporal Artery (DegF) [97.3-100 Deg F] 96.98 Deg F *LOW* (09/13/22 12:45 PM) 96.8 Deg F *LOW* (09/13/22 12:20 PM) Peripheral Pulse Rate [60-100 bpm] 51 bpm *LOW* (09/13/22 12:50 PM) 58 bpm *LOW* (09/13/22 12:45 PM) 57 bpm *LOW* (09/13/22 12:35 PM) Heart Rate Monitored [60-100 bpm] 58 bpm *LOW* (09/13/22 12:50 PM) 61 bpm (09/13/22 12:45 PM) 57 bpm *LOW* (09/13/22 12:35 PM) Respiratory Rate [12-24 br/min] 16 br/min (09/13/22 12:50 PM) 15 br/min (09/13/22 12:45 PM) 14 br/min (09/13/22 12:35 PM) Blood Pressure [90-140/60-90 mmHg] 145/64mmHg *HI* (09/13/22 12:50 PM) 142/79mmHg *HI* (09/13/22 12:45 PM) 126/62mmHg (09/13/22 12:35 PM) Mean Arterial Pressure, Cuff [65-140 mmHg] 91 mmHg (09/13/22 12:50 PM) 100 mmHg (09/13/22 12:45 PM) 83 mmHg (09/13/22 12:35 PM) Mean Arterial Pressure Cuff 102 mmHg (09/13/22 11:01 AM) Blood Pressure Location Right arm (09/13/22 11:01 AM) Weight 54.6 kg (09/13/22 11:01 AM) Height 152 cm (09/13/22 11:01 AM) Social History Social History Type Response Tobacco Never tobacco user T obacco Use:. Sex Female Hospital Discharge Instructions Patient Education 09/13/2022 11:33:04 ss Post General Anesthesia / Procedure Dischage Instructions General Post Anesthesia / Sedation Discharge Instructions Continue with your daily medications. Any changes please call the Cardiology office. Activities: Do not attempt to drive a vehicle or operate power equipment of any kind for at least 24 hours after discharge from the hospital. Do not consume alcoholic beverages or other mood-altering drugs on the day of surgery. Mild irritation at needle site: Apply warm, moist pack to area for 20 minutes four times a day for 2-3 days. Call physician if persistent redness and/or drainage at needle site. Go to ER or Call the office if: Fever within 24 hours after procedure / Surgery Uncontrollable pain even when taking pain medications as prescribed Discharge instructions * Darby Dickerson: PERFORM Event Display: Discharge Instructions Authored Date: [id number] MIRELA CONTE :1945 Age:77 years Sex:Female Visit Date:09/13/2022 Primary Care Physician: Sushma ALICEA, Missael Alegria MD Hospital Discharge Instructions We would like to thank you for allowing us to assist you with your healthcare needs. The following includes patient education materials and information regarding your injury/illness. Your Summary Your Care Team Admitting Physician - Willie Wilkins MD Attending Physician - Willie Wilkins MD Primary Care Physician - Sushma ALICEA, Missael Alegria MD Referring Physician - Willie Wilkins MD Tests Performed/Pending EKG - Lab?-- Results Pending -- Discharge Vitals Temperature??(Temporal Artery) 96.8 ??F (36.0 ??C) Heart Rate??(Peripheral) 57 Heart Rate??(Monitored) 57 Respiratory Rate?? 18 Blood Pressure?? 116/82?? Blood Pressure?? 150/83(Sitting)?? Height?? 59.84 in (152 cm) Weight?? 120.39 lb (54.6 kg) Education Materials General Post Anesthesia / Sedation Discharge Instructions ? Continue with your daily medications. Any changes please call the Cardiology office. ? Activities: Do not attempt to drive a vehicle or operate power equipment of any kind for at least 24 hours after discharge from the hospital. ? Do not consume alcoholic beverages or other mood-altering drugs on the day of surgery. ? Mild irritation at needle site: Apply warm, moist pack to area for 20 minutes four times a day for 2-3 days. ? Call physician if persistent redness and/or drainage at needle site. ? Go to ER or Call the office if: ? Fever within 24 hours after procedure / Surgery ? Uncontrollable pain even when taking pain medications as prescribed Patient Name:MIRELA CONTE I have received this information and my questions have been answered. Patient/Moose Hunter Name: Patient/Moose Hunter Signature: Relationship to Patient: Witness Name/Signature: Date: Electronically Signed on: 09/13/2022 12:33 EDTSigned by:PAF History and physical note * Jenny Coe: PERFORM Event Display: History and Physical Authored Date: [id number] MIRELA CONTE :1945 Age:77 years Sex:Female Primary Care Physician: Missael Bañuelos MD * Final Report * MIRELA CONTE :?1945 Age:??77 years Sex:??Female Visit Date:??07/07/2022 Primary Care Physician: ??Missael Bañuelos MD History of Present Illness Cardiac [...] [facility] otherwise [facility] would [facility] been unaware. ??There [...] the history of present illness. Physical Exam ?Vitals & Measurements ?HR:??90??(Peripheral)?? BP:??114/71?? SpO2:??99%?? WT:??54.9??kg?? HEENT: Normocephalic, atraumatic Respirations: Clear to auscultation bilaterally with no wheezes rubs or rhonchi Cardiac: Irregularly irregular, normal S1, S2, no murmurs gallops or rubs Abdomen: Nontender nondistended normal active bowel sounds Extremities: 2+ dorsalis pedis pulses bilaterally with no significant edema Assessment/Plan Afib??I48.91 ?Ordered: Xarelto 20 mg oral tablet, 20 mg = 1 tab, Oral, every evening, with evening meal, # 30 tab, 0 Refill(s) CV ECG Clinic, 07/07/22 8:46:00 EDT, Routine, Reason: Other (please specify), Stop date and time 07/07/22 8:46:00 EDT, Afib, ORD_SET_REQ_DT_RANGE, Lyssa's Internal Person Id Follow-Up Appointment Request [facility], *Est. 09/06/22 +/- 14 days, Future Order, In [facility] Cardiology ?? Data reviewed: 12/07/2021: Holter [...] her today. Problem List/Past Medical History Ongoing ?No qualifying data Historical ?No qualifying data Medications ??Xarelto 20 mg oral tablet, 20 mg= 1 tab, Oral, every evening Allergies Cipro Social History Electronic Cigarette/Vaping ??Electronic Cigarette Use: Never. Tobacco ??Never tobacco user Tobacco Use:. ?? [1] Ambulatory Visit Instructions We would like to thank you for allowing us to assist you with your healthcare needs. The following includes patient education materials and information regarding your injury/illness. Medications What How Much When Why Instructions Unchanged rivaroxaban (Xarelto 20 mg oral tablet) 1 tab Oral (given by mouth) Every evening Afib with evening meal ?? Your Summary Your Care Team Admitting Physician - Willie Wilkins MD Attending Physician - Willie Wilkins MD [facility] Allergies Cipro [1]??Cardiology Office Visit Note; Willie Wilkins MD 07/07/2022 09:37 EDT Electronically Signed on 07/29/22 10:13 AM Jenny Coe Reviewed by: Willie Wilkins MD Cardiology Outpatient Note * Willie Wilkins MD: PERFORM Event Display: Cardiology Office Clinic Note Authored Date: [id number] MIRELA CONTE :1945 Age:77 years Sex:Female Visit Date:09/13/2022 Primary Care Physician: Missael Jenkins MD ? Date: September 13, 2022 ?? CARDIOLOGY OP NOTE: ?? OB/GYN NURSE: Willie Wilkins MD ?? PROCEDURE: Electrical Cardioversion ?? PREOPERATIVE DIAGNOSIS:??Atrial Fibrillation? POSTOPERATIVE DIAGNOSIS:??Sinus Rhythm? Prior to the procedure, consent was obtained. All risks were explained to the patient in layman's terms. The patient expressed understanding and agreed to proceed. Consent was signed and placed in the chart. At the initiation of the procedure a physician led time-out was performed, confirming the proper patient, location, procedure, etc. ?? Pads were placed in AP position. ?? The patient was provided with propofol by the anesthesia department. ?? She was cardioverted at 125 J in sync mode. ??This resulted in prompt latter-day of sinus rhythm. ?Sheis recovering uneventfully at the time of this dictation. ?? Willie Wilkins MD [facility] Cardiology Department Electronically Signed on 09/13/22 12:15 PM Willie Wilkins MD Patient Care team information Care Team Personnel Name: Missael Jenkins MD Position: No Access Member Role: Primary Care Physician Address: Address: [address] [address]- Care Team Related Persons Name: ANDRADE CONTE Address: Home [address] [place] [phone]
[2023-06-09 09:33] LABS: Abs Immature Grans 0.04 10^3/uL (0.0-0.06); Absolute Basophil Count 0.06 10^3/uL (0.0-0.2); Absolute Eosinophil Count 0.37 10^3/uL (0.0-0.7); Absolute Lymphocyte Count 2.07 10^3/uL (1.2-3.4); Absolute Monocyte Count 1.01 10^3/uL (0.1-0.8); Absolute Neutrophil Count 5.43 10^3/uL (1.2-6.7); Basophils % 0.7; Eosinophils % 4.1; HCT 42.6 % (36.0-46.0); HGB 14.3 g/dL (11.2-15.7); Immature Grans % 0.4; Lymphocytes % 23.1; MCH 30.6 pg (27.0-33.0); MCHC 33.6 % (32.0-36.0); MCV 91 fL (80-95); MPV 8.2 fL (8.0-11.0); Monocytes % 11.2; Neutrophils % 60.5; Platelet Count 271 10^3/uL (130-400); RBC 4.68 10^6/uL (3.93-5.22); RDW 13.6 % (11.7-14.6); RDW-SD 46.1 fL; WBC 8.98 10^3/uL (4.4-10.8)
[2023-06-09 09:35] LABS: Bilirubin Negative (Negative); Blood Negative (Negative); Clarity Clear (Clear); Glucose Negative (Negative); Ketones Negative (Negative); Leukocyte Esterase Trace (Negative); Nitrite Negative (Negative); Specific Gravity 1.015 (1.005-1.025); Urobilinogen 0.2 mg/dL (Up to 0.2)
[2023-06-09 09:53] LABS: Bacteria Few HPF (Negative); C & S Indicated? No/Sq. Contamination; Epithelial Cells Moderate HPF (Negative); Other Cells Rare Renal (Negative); RBC 0-2 HPF (0-2)
[2023-06-09 10:24] LABS: COMMENT (LAB VIEW ONLY) 31.49 mg/dL; PROTEIN 28.5 mg/dL
[2023-06-09 10:29] LABS: Cholesterol 183 mg/dL (<200)
[2023-06-09 10:31] LABS: ALT 25 U/L (14-59); AST 27 U/L (15-37); Albumin 3.8 g/dL (3.4-5.0); Alkaline Phosphatase 75 U/L (46-116); Anion Gap 9.3 mmol/L (3-11); BUN 18 mg/dL (7-18); Bilirubin, Total 0.6 mg/dL (0.2-1.0); CO2 28.7 mmol/L (21.0-32.0); CREATININE 1.2 mg/dL (0.55-1.02); Chloride 97 mmol/L (98-107); Estimated GFR 46.62 (mL/min/1.73m2); Glucose 95 mg/dL (74-106); Magnesium 1.6 mg/dL (1.8-2.4); PHOSPHORUS 3.3 mg/dL (2.6-4.7); Sodium 135 mmol/L (136-145); Total Protein 7.8 g/dL (6.4-8.2); Uric Acid 4.9 mg/dL (2.6-6.0)
[2023-06-10 11:44] LABS: Tacrolimus 5.7 ng/mL (See Note)
== END 2023-06-09 04:14 | disposition home or self-care (01) ==
LOC: LBO 04:13
PROVIDERS: PCP Internal Medicine; Visit Provider Internal Medicine Nephrology
DX: Z94.0 Kidney transplant status (principal)
CPT/HCPCS: 36415; 80053; 80197; 81003; 81015; 82465; 82565; 83735; 84100; 84156; 84550; 85025

== ENCOUNTER 2023-07-05 04:21 | Outpatient (CLI) | payer MEDICARE, BC, SELFPAY ==
[2023-07-05 12:48] LABS: Abs Immature Grans 0.02 10^3/uL (0.0-0.06); Absolute Basophil Count 0.04 10^3/uL (0.0-0.2); Absolute Eosinophil Count 0.16 10^3/uL (0.0-0.7); Absolute Lymphocyte Count 1.24 10^3/uL (1.2-3.4); Absolute Neutrophil Count 4.09 10^3/uL (1.2-6.7); Basophils % 0.6; Eosinophils % 2.5; HCT 41.2 % (36.0-46.0); HGB 14.1 g/dL (11.2-15.7); Immature Grans % 0.3; Lymphocytes % 19.5; MCH 30.9 pg (27.0-33.0); MCHC 34.2 % (32.0-36.0); MCV 90 fL (80-95); MPV 8.8 fL (8.0-11.0); Monocytes % 12.6; Neutrophils % 64.5; Platelet Count 283 10^3/uL (130-400); RBC 4.57 10^6/uL (3.93-5.22); RDW 13.7 % (11.7-14.6); RDW-SD 45.4 fL; WBC 6.35 10^3/uL (4.4-10.8)
[2023-07-05 12:54] LABS: ESR 9 mm/hr (0-30)
[2023-07-05 13:05] LABS: ALT 23 U/L (14-59); AST 25 U/L (15-37); Albumin 3.6 g/dL (3.4-5.0); Alkaline Phosphatase 67 U/L (46-116); Anion Gap 6.8 mmol/L (3-11); BUN 25 mg/dL (7-18); Bilirubin, Total 0.7 mg/dL (0.2-1.0); CO2 29.2 mmol/L (21.0-32.0); CREATININE 1.2 mg/dL (0.55-1.02); Calcium 9.7 mg/dL (8.5-10.1); Chloride 100 mmol/L (98-107); Estimated GFR 46.62 (mL/min/1.73m2); Glucose 86 mg/dL (74-106); Potassium 4.7 mmol/L (3.5-5.1); Sodium 136 mmol/L (136-145); Total Protein 7.3 g/dL (6.4-8.2)
[2023-07-05 13:06] LABS: C-Reactive Protein < 0.50 mg/dL (<or=0.5)
== END 2023-07-05 04:22 | disposition home or self-care (01) ==
LOC: LOS 04:21
PROVIDERS: PCP Internal Medicine; Visit Provider Internal Medicine Hematology & Oncology
DX: K50.10 Crohn's disease of large intestine without complications (principal)
CPT/HCPCS: 36415; 80053; 85652; 85025; 86140

== ENCOUNTER 2023-09-08 05:14 | Outpatient (CLI) | payer MEDICARE, BC, SELFPAY ==
[2023-09-08 09:31] LABS: Abs Immature Grans 0.02 10^3/uL (0.0-0.06); Absolute Basophil Count 0.04 10^3/uL (0.0-0.2); Absolute Lymphocyte Count 1.37 10^3/uL (1.2-3.4); Absolute Monocyte Count 0.93 10^3/uL (0.1-0.8); Absolute Neutrophil Count 4.63 10^3/uL (1.2-6.7); Basophils % 0.6 %; Eosinophils % 2.8 %; HGB 14.2 g/dL (11.2-15.7); Immature Grans % 0.3 %; Lymphocytes % 19.1 %; MCH 31.6 pg (27.0-33.0); MCHC 34.6 % (32.0-36.0); MCV 91 fL (80-95); MPV 8.6 fL (8.0-11.0); Monocytes % 12.9 %; Neutrophils % 64.3 %; Platelet Count 297 10^3/uL (130-400); RBC 4.49 10^6/uL (3.93-5.22); RDW 13.6 % (11.7-14.6); RDW-SD 46.2 fL; WBC 7.19 10^3/uL (4.4-10.8)
[2023-09-08 09:32] LABS: ESR 17 mm/hr (0-30)
[2023-09-08 09:39] LABS: Bilirubin Negative (Negative); Blood Negative (Negative); Clarity Clear (Clear); Glucose Negative (Negative); Ketones Negative (Negative); Leukocyte Esterase Negative (Negative); Nitrite Negative (Negative); Specific Gravity 1.015 (1.005-1.025); Urobilinogen 0.2 mg/dL (Up to 0.2)
[2023-09-08 09:56] LABS: COMMENT (LAB VIEW ONLY) 25.01 mg/dL; Prot/Crea Ur Ratio 0.87
[2023-09-08 10:04] LABS: Cholesterol 190 mg/dL (<200)
[2023-09-08 10:19] LABS: C-Reactive Protein 4.59 mg/dL (<or=0.5)
[2023-09-08 10:20] LABS: ALT 24 U/L (14-59); AST 24 U/L (15-37); Albumin 3.8 g/dL (3.4-5.0); Alkaline Phosphatase 77 U/L (46-116); Anion Gap 6.9 mmol/L (3-11); BUN 17 mg/dL (7-18); Bilirubin, Total 0.6 mg/dL (0.2-1.0); CO2 29.1 mmol/L (21.0-32.0); Calcium 9.3 mg/dL (8.5-10.1); Chloride 95 mmol/L (98-107); Estimated GFR 58.02 (mL/min/1.73m2); Glucose 86 mg/dL (74-106); Magnesium 1.4 mg/dL (1.8-2.4); Sodium 131 mmol/L (136-145); Total Protein 7.9 g/dL (6.4-8.2); Uric Acid 4.7 mg/dL (2.6-6.0)
[2023-09-09 11:40] LABS: Tacrolimus 5.8 ng/mL (See Note)
== END 2023-09-08 05:15 | disposition home or self-care (01) ==
PROVIDERS: Internal Medicine Nephrology; PCP Internal Medicine; Visit Provider Nurse Practitioner Adult Health
DX: Z94.0 Kidney transplant status (principal); Z94.83 Pancreas transplant status; Z79.899 Other long term (current) drug therapy
CPT/HCPCS: 36415; 80053; 85652; 80197; 81003; 82465; 82565; 83735; 84100; 84156; 84550; 85025; 86140

== ENCOUNTER 2023-12-06 11:07 | Outpatient (REF) | payer MEDICARE, BC, SELFPAY ==
--- NOTE | 2023-12-06 10:40 | PAPFT_PTH ---
PATIENT: Sonam Herring LOC: [facility] U#:[id number] AGE/SX: 78/F ROOM: RE12/06/[address]: Stephanie Calzada DO : 1945 BED: DIS: 12/06/2023 SPEC #: [id number] RECD: 12/06/23 12:44 STATUS: ALEXUS REQ #: [id number] RACHANA: 12/06/23 10:[address]: Stephanie Calzada DEPT: [facility] Cytology RECD BY: Sidra Merrill ENTERED: 12/06/23 12:45 SP TYPE: PAPFT OTHR DR: Missael Ordaz Tissues: 1 - CX/ENDOCX FOR PAP SMEARS Procedures: PAP THIN PREP/UVM Screening HPV DNA PROBE Comments: [id number] (HPV 16 & 18/45)
== END 2023-12-06 11:08 | disposition home or self-care (01) ==
LOC: LBN 11:07
PROVIDERS: PCP Internal Medicine; Visit Provider Obstetrics & Gynecology
DX: Z11.51 Encounter for screening for human papillomavirus (HPV) (principal); Z01.419 Encounter for gynecological examination (general) (routine) without abnormal findings
CPT/HCPCS: 88142; 87624

== ENCOUNTER 2023-12-12 02:23 | Outpatient (CLI) | payer MEDICARE, BC, SELFPAY ==
--- NOTE | 2023-12-12 11:45 | DI.MAMMO_ITS ---
Exam(s) MAMMO SCREENING EXAM: MAMMO SCREENING CLINICAL HISTORY: screening TECHNIQUE: Mammograms were interpreted according to the usual protocol including computer analysis w [employer] CAD system, tomosynthesis and C-view imaging. COMPARISON: 2013 through 2022 FINDINGS: The breasts are composed of mainly fatty density , Breast Density category A. No suspicious masses or suspicious microcalcifications are seen. No skin thickening or abnormal axillary lymph nodes are seen. There has been no significant change from prior exams. IMPRESSION: BI-RADS Category 1, Negative mammogram Yearly screening mammography is recommended. Breast Density - Category A, fatty density. A negative radiographic report should not delay biopsy if a dominant or clinically suspicious mass is present. Up to ten percent of cancers are not identified on mammography. A negative report may reinforce clinical impression. Adenosis and dense breasts may obscure an underlying neoplasm. False positive reports average 6 to 10%. Patient will receive a letter notifying them of these results.
== END 2023-12-12 02:43 ==
LOC: DI 02:23
PROVIDERS: PCP Internal Medicine; Visit Provider Obstetrics & Gynecology
DX: Z12.31 Encounter for screening mammogram for malignant neoplasm of breast (principal)
CPT/HCPCS: 77063; 77067

== ENCOUNTER 2023-12-21 03:48 | Outpatient (CLI) | payer MEDICARE, BC, SELFPAY ==
[2023-12-21 09:09] LABS: Abs Immature Grans 0.02 10^3/uL (0.0-0.06); Absolute Basophil Count 0.03 10^3/uL (0.0-0.2); Absolute Eosinophil Count 0.17 10^3/uL (0.0-0.7); Absolute Lymphocyte Count 1.33 10^3/uL (1.2-3.4); Absolute Neutrophil Count 3.12 10^3/uL (1.2-6.7); Basophils % 0.6 %; Eosinophils % 3.2 %; HCT 42.2 % (36.0-46.0); HGB 14.5 g/dL (11.2-15.7); Immature Grans % 0.4 %; Lymphocytes % 25.2 %; MCH 31.3 pg (27.0-33.0); MCHC 34.4 % (32.0-36.0); MCV 91 fL (80-95); MPV 8.2 fL (8.0-11.0); Monocytes % 11.4 %; Neutrophils % 59.2 %; Platelet Count 262 10^3/uL (130-400); RBC 4.63 10^6/uL (3.93-5.22); RDW 14.1 % (11.7-14.6); RDW-SD 47.5 fL; WBC 5.27 10^3/uL (4.4-10.8)
[2023-12-21 09:23] LABS: Cholesterol 199 mg/dL (<200)
[2023-12-21 09:26] LABS: ALT 25 U/L (14-59); AST 27 U/L (15-37); Albumin 3.6 g/dL (3.4-5.0); Alkaline Phosphatase 62 U/L (46-116); Anion Gap 8.3 mmol/L (3-11); BUN 19 mg/dL (7-18); Bilirubin, Total 0.77 mg/dL (0.2-1.0); CO2 28.7 mmol/L (21.0-32.0); CREATININE 1.2 mg/dL (0.55-1.02); Calcium 9.6 mg/dL (8.5-10.1); Chloride 101 mmol/L (98-107); Estimated GFR 46.62 (mL/min/1.73m2); Glucose 115 mg/dL (74-106); Magnesium 1.4 mg/dL (1.8-2.4); PHOSPHORUS 3.2 mg/dL (2.6-4.7); Potassium 4.1 mmol/L (3.5-5.1); Sodium 138 mmol/L (136-145); Total Protein 7.3 g/dL (6.4-8.2); Uric Acid 5.5 mg/dL (2.6-6.0)
[2023-12-21 09:44] LABS: COMMENT (LAB VIEW ONLY) 34.96 mg/dL; PROTEIN 32.5 mg/dL; Prot/Crea Ur Ratio 0.92
[2023-12-21 09:53] LABS: Bilirubin Negative (Negative); Blood Negative (Negative); Clarity Clear (Clear); Glucose Negative (Negative); Ketones Negative (Negative); Leukocyte Esterase Negative (Negative); Nitrite Negative (Negative); Specific Gravity 1.015 (1.005-1.025); Urobilinogen 0.2 mg/dL (Up to 0.2)
[2023-12-21 10:11] LABS: Bacteria Negative HPF (Negative); Epithelial Cells Few HPF (Negative); Mucus Negative (Negative); Other Cells Rare Renal (Negative); RBC Negative HPF (0-2); WBC Negative HPF (0-5)
[2023-12-21 10:12] LABS: C & S Indicated? No; Casts Negative LPF (Negative); Crystals Negative HPF (Negative)
[2023-12-22 16:00] LABS: Tacrolimus 7.7 ng/mL (See Note)
== END 2023-12-21 03:49 | disposition home or self-care (01) ==
LOC: LBO 03:48
PROVIDERS: PCP Internal Medicine; Visit Provider Internal Medicine Nephrology
DX: Z94.0 Kidney transplant status (principal); Z94.83 Pancreas transplant status; Z79.899 Other long term (current) drug therapy; Z29.89 Encounter for other specified prophylactic measures
CPT/HCPCS: 36415; 80053; 80197; 81003; 81015; 82465; 82565; 83735; 84100; 84156; 84550; 85025

== ENCOUNTER 2024-03-15 03:09 | Outpatient (CLI) | payer MEDICARE, BC, SELFPAY ==
[2024-03-15 09:47] LABS: Abs Immature Grans 0.02 10^3/uL (0.0-0.06); Absolute Basophil Count 0.03 10^3/uL (0.0-0.2); Absolute Eosinophil Count 0.25 10^3/uL (0.0-0.7); Absolute Lymphocyte Count 0.98 10^3/uL (1.2-3.4); Absolute Monocyte Count 1.05 10^3/uL (0.1-0.8); Absolute Neutrophil Count 4.11 10^3/uL (1.2-6.7); Basophils % 0.5 %; Eosinophils % 3.9 %; HCT 43.3 % (36.0-46.0); HGB 14.5 g/dL (11.2-15.7); Immature Grans % 0.3 %; Lymphocytes % 15.2 %; MCH 31.3 pg (27.0-33.0); MCHC 33.5 % (32.0-36.0); MCV 94 fL (80-95); MPV 8.3 fL (8.0-11.0); Monocytes % 16.3 %; Neutrophils % 63.8 %; Platelet Count 250 10^3/uL (130-400); RBC 4.63 10^6/uL (3.93-5.22); RDW 13.9 % (11.7-14.6); RDW-SD 48.1 fL; WBC 6.44 10^3/uL (4.4-10.8)
[2024-03-15 09:50] LABS: Reticulocyte 1.7 % (0.5-2.4)
[2024-03-15 09:59] LABS: Hemoglobin A1C 5.6 % (<5.7)
[2024-03-15 10:28] LABS: COMMENT (LAB VIEW ONLY) 56.28 mg/dL; PROTEIN 30.2 mg/dL; Prot/Crea Ur Ratio 0.53
[2024-03-15 10:37] LABS: Bilirubin Negative (Negative); Blood Negative (Negative); Clarity Clear (Clear); Glucose Negative (Negative); Ketones Negative (Negative); Leukocyte Esterase Negative (Negative); Nitrite Negative (Negative); Urobilinogen 0.2 mg/dL (Up to 0.2); pH 6.5 (5-8)
[2024-03-15 10:43] LABS: Bacteria Rare HPF (Negative); C & S Indicated? No; Casts 0-2 Hyaline LPF (Negative); Crystals Negative HPF (Negative); Epithelial Cells Moderate HPF (Negative); Mucus Negative (Negative); RBC Negative HPF (0-2); WBC 0-2 HPF (0-5)
[2024-03-15 10:55] LABS: ALT 22 U/L (14-59); AST 25 U/L (15-37); Albumin 3.6 g/dL (3.4-5.0); Alkaline Phosphatase 78 U/L (46-116); Anion Gap 7.1 mmol/L (3-11); BUN 21 mg/dL (7-18); CO2 29.9 mmol/L (21.0-32.0); CREATININE 1.2 mg/dL (0.55-1.02); Calcium 9.6 mg/dL (8.5-10.1); Calculated LDL 104 mg/dL (<100); Chloride 102 mmol/L (98-107); Cholesterol 214 mg/dL (<200); Estimated GFR 46.62 (mL/min/1.73m2); Glucose 75 mg/dL (74-106); HDL Cholesterol 75 mg/dL (40-60); Magnesium 1.4 mg/dL (1.8-2.4); PHOSPHORUS 3.2 mg/dL (2.6-4.7); Sodium 139 mmol/L (136-145); Total Protein 7.5 g/dL (6.4-8.2); Triglyceride 175 mg/dL (<150)
[2024-03-15 11:03] LABS: Uric Acid 5.1 mg/dL (2.6-6.0)
[2024-03-15 11:04] LABS: TSH 3.55 uIU/mL (0.36-3.74)
[2024-03-15 11:17] LABS: Vitamin D 25 Total 42.1 ng/mL (30-100)
[2024-03-15 18:25] LABS: Parathyroid Hormone,Intact 62.6 pg/mL (19.0-88.0)
[2024-03-16 09:21] LABS: Magnesium Random Urine 8.5 mg/dL (See Note)
[2024-03-16 09:23] LABS: Calcium (Random Urine) 8.7 mg/dL (See Note); Phosphorus Urine 13.8 mg/dL (See Note)
[2024-03-16 13:52] LABS: Tacrolimus 8.5 ng/mL (See Note)
[2024-03-16 21:33] LABS: BKV DNA Detect/Quant, P Undetected IU/mL (Undetected)
[2024-03-20 16:07] LABS: 25-Hydroxy D Total 51 ng/mL; 25-Hydroxy D2 <4.0 ng/mL; 25-Hydroxy D3 51 ng/mL
== END 2024-03-15 03:10 | disposition home or self-care (01) ==
LOC: LBO 03:09
PROVIDERS: Nurse Practitioner Family; PCP Internal Medicine; Visit Provider Internal Medicine Nephrology
DX: E03.9 Hypothyroidism, unspecified (principal); Z79.899 Other long term (current) drug therapy
CPT/HCPCS: 36415; 80053; 80061; 82306; 83735; 80197; 81003; 81015; 82340; 82565; 83036; 83970; 84100; 84105; 84156; 84443; 84550; 85025; 85045; 87799

== ENCOUNTER 2024-05-10 01:12 | Outpatient (CLI) | payer MEDICARE, BC, SELFPAY ==
[2024-05-10 09:25] LABS: Abs Immature Grans 0.04 10^3/uL (0.0-0.06); Absolute Basophil Count 0.04 10^3/uL (0.0-0.2); Absolute Lymphocyte Count 1.87 10^3/uL (1.2-3.4); Absolute Monocyte Count 0.95 10^3/uL (0.1-0.8); Absolute Neutrophil Count 4.69 10^3/uL (1.2-6.7); Basophils % 0.5 %; Eosinophils % 3.8 %; HCT 42.8 % (36.0-46.0); HGB 14.2 g/dL (11.2-15.7); Immature Grans % 0.5 %; Lymphocytes % 23.7 %; MCH 31.1 pg (27.0-33.0); MCHC 33.2 % (32.0-36.0); MCV 94 fL (80-95); MPV 8.3 fL (8.0-11.0); Neutrophils % 59.5 %; Platelet Count 251 10^3/uL (130-400); RBC 4.57 10^6/uL (3.93-5.22); RDW 14.1 % (11.7-14.6); RDW-SD 48.7 fL; WBC 7.89 10^3/uL (4.4-10.8)
[2024-05-10 09:32] LABS: Bilirubin Negative (Negative); Blood Negative (Negative); Clarity Clear (Clear); Glucose Negative (Negative); Ketones Negative (Negative); Leukocyte Esterase Negative (Negative); Nitrite Negative (Negative); Specific Gravity 1.015 (1.005-1.025); Urobilinogen 0.2 mg/dL (Up to 0.2)
[2024-05-10 09:42] LABS: RBC 0-2 HPF (0-2); WBC 0-2 HPF (0-5)
[2024-05-10 09:43] LABS: Bacteria Few HPF (Negative); C & S Indicated? No; Casts Negative LPF (Negative); Crystals Negative HPF (Negative); Epithelial Cells Many HPF (Negative); Mucus Negative (Negative)
[2024-05-10 09:44] LABS: COMMENT (LAB VIEW ONLY) 67.12 mg/dL; PROTEIN 23.2 mg/dL; Prot/Crea Ur Ratio 0.34
[2024-05-10 09:49] LABS: ALT 24 U/L (14-59); AST 26 U/L (15-37); Albumin 3.7 g/dL (3.4-5.0); Alkaline Phosphatase 81 U/L (46-116); Anion Gap 5.4 mmol/L (3-11); BUN 23 mg/dL (7-18); Bilirubin, Total 0.64 mg/dL (0.2-1.0); CO2 31.6 mmol/L (21.0-32.0); CREATININE 1.1 mg/dL (0.55-1.02); Calcium 9.9 mg/dL (8.5-10.1); Chloride 100 mmol/L (98-107); Estimated GFR 51.43 (mL/min/1.73m2); Glucose 88 mg/dL (74-106); Magnesium 1.5 mg/dL (1.8-2.4); PHOSPHORUS 3.3 mg/dL (2.6-4.7); Potassium 4.1 mmol/L (3.5-5.1); Sodium 137 mmol/L (136-145); Total Protein 7.6 g/dL (6.4-8.2); Uric Acid 5.2 mg/dL (2.6-6.0)
[2024-05-10 10:21] LABS: Cholesterol 211 mg/dL (<200)
[2024-05-11 14:25] LABS: Tacrolimus 6.2 ng/mL (See Note)
== END 2024-05-10 01:13 | disposition home or self-care (01) ==
PROVIDERS: PCP Internal Medicine; Visit Provider Nurse Practitioner Family
DX: Z94.0 Kidney transplant status (principal); Z94.83 Pancreas transplant status; Z79.899 Other long term (current) drug therapy
CPT/HCPCS: 36415; 80053; 80197; 81003; 81015; 82465; 82565; 83735; 84100; 84156; 84550; 85025

== ENCOUNTER 2024-06-11 02:06 | Outpatient (CLI) | payer MEDICARE, BC, SELFPAY ==
[2024-06-11 10:59] LABS: Abs Immature Grans 0.03 10^3/uL (0.0-0.06); Absolute Basophil Count 0.05 10^3/uL (0.0-0.2); Absolute Eosinophil Count 0.22 10^3/uL (0.0-0.7); Absolute Lymphocyte Count 1.38 10^3/uL (1.2-3.4); Absolute Monocyte Count 0.84 10^3/uL (0.1-0.8); Absolute Neutrophil Count 5.32 10^3/uL (1.2-6.7); Basophils % 0.6 %; Eosinophils % 2.8 %; HCT 41.3 % (36.0-46.0); HGB 13.9 g/dL (11.2-15.7); Immature Grans % 0.4 %; Lymphocytes % 17.6 %; MCH 31.4 pg (27.0-33.0); MCHC 33.7 % (32.0-36.0); MCV 93 fL (80-95); MPV 8.4 fL (8.0-11.0); Monocytes % 10.7 %; Neutrophils % 67.9 %; Platelet Count 263 10^3/uL (130-400); RBC 4.43 10^6/uL (3.93-5.22); RDW 13.7 % (11.7-14.6); RDW-SD 47.4 fL; WBC 7.84 10^3/uL (4.4-10.8)
[2024-06-11 11:01] LABS: ESR 8 mm/hr (0-30)
[2024-06-11 11:28] LABS: ALT 26 U/L (14-59); AST 22 U/L (15-37); Albumin 3.5 g/dL (3.4-5.0); Alkaline Phosphatase 73 U/L (46-116); Anion Gap 2.7 mmol/L (3-11); BUN 28 mg/dL (7-18); Bilirubin, Total 0.55 mg/dL (0.2-1.0); CO2 32.3 mmol/L (21.0-32.0); CREATININE 1.3 mg/dL (0.55-1.02); Calcium 10.1 mg/dL (8.5-10.1); Chloride 102 mmol/L (98-107); Estimated GFR 42.09 (mL/min/1.73m2); Glucose 89 mg/dL (74-106); Potassium 4.6 mmol/L (3.5-5.1); Sodium 137 mmol/L (136-145); Total Protein 7.3 g/dL (6.4-8.2)
== END 2024-06-11 02:07 | disposition home or self-care (01) ==
PROVIDERS: PCP Internal Medicine; Visit Provider Nurse Practitioner Adult Health
DX: K50.10 Crohn's disease of large intestine without complications (principal)
CPT/HCPCS: 36415; 80053; 85652; 85025; 86140

== ENCOUNTER 2024-08-08 11:51 | Outpatient (REF) | payer MEDICARE, BC, SELFPAY | END 2024-08-08 11:52 | disposition home or self-care (01) | LOC: NCHCN 11:51 | PROVIDERS: PCP Internal Medicine; Visit Provider Internal Medicine | DX: R30.0 Dysuria (principal); B96.20 Unspecified Escherichia coli [E. coli] as the cause of diseases classified elsewhere | CPT/HCPCS: 87077; 87086; 87186 ==

== ENCOUNTER 2024-09-11 02:43 | Outpatient (CLI) | payer MEDICARE, BC, SELFPAY ==
[2024-09-11 10:19] LABS: Abs Immature Grans 0.09 10^3/uL (0.0-0.06); Absolute Basophil Count 0.05 10^3/uL (0.0-0.2); Absolute Eosinophil Count 0.22 10^3/uL (0.0-0.7); Absolute Lymphocyte Count 1.22 10^3/uL (1.2-3.4); Absolute Monocyte Count 1.06 10^3/uL (0.1-0.8); Basophils % 0.5 %; Eosinophils % 2.4 %; HCT 39.4 % (36.0-46.0); HGB 12.9 g/dL (11.2-15.7); Lymphocytes % 13.2 %; MCH 30.5 pg (27.0-33.0); MCHC 32.7 % (32.0-36.0); MCV 93 fL (80-95); MPV 8.1 fL (8.0-11.0); Monocytes % 11.5 %; Neutrophils % 71.4 %; Platelet Count 368 10^3/uL (130-400); RBC 4.23 10^6/uL (3.93-5.22); RDW 14.2 % (11.7-14.6); RDW-SD 47.8 fL; WBC 9.24 10^3/uL (4.4-10.8)
[2024-09-11 10:39] LABS: Bilirubin Negative (Negative); Blood Trace-intact (Negative); Clarity Clear (Clear); Glucose Negative (Negative); Ketones Negative (Negative); Leukocyte Esterase Trace (Negative); Nitrite Negative (Negative); Urobilinogen 0.2 mg/dL (Up to 0.2); pH 6.5 (5-8)
[2024-09-11 10:41] LABS: ALT 15 U/L (14-59); AST 19 U/L (15-37); Albumin 3.5 g/dL (3.4-5.0); Alkaline Phosphatase 87 U/L (46-116); Anion Gap 13.6 mmol/L (3-11); BUN 53 mg/dL (7-18); Bilirubin, Total 0.6 mg/dL (0.2-1.0); CO2 21.4 mmol/L (21.0-32.0); CREATININE 3.1 mg/dL (0.55-1.02); Calcium 10.1 mg/dL (8.5-10.1); Chloride 103 mmol/L (98-107); Estimated GFR 14.83 (mL/min/1.73m2); Glucose 122 mg/dL (74-106); Magnesium 2.2 mg/dL (1.8-2.4); PHOSPHORUS 3.9 mg/dL (2.6-4.7); Sodium 138 mmol/L (136-145); Total Protein 8.4 g/dL (6.4-8.2); Uric Acid 4.9 mg/dL (2.6-6.0)
[2024-09-11 10:45] LABS: Bacteria Few HPF (Negative); C & S Indicated? No; Casts Negative LPF (Negative); Crystals Negative HPF (Negative); Epithelial Cells Few HPF (Negative); Mucus Negative (Negative)
[2024-09-11 11:02] LABS: COMMENT (LAB VIEW ONLY) 32.16 mg/dL; PROTEIN 22.4 mg/dL; Prot/Crea Ur Ratio 0.69
[2024-09-11 11:51] LABS: Cholesterol 175 mg/dL (<200)
[2024-09-12 13:14] LABS: Tacrolimus 4.8 ng/mL (See Note)
== END 2024-09-11 02:44 | disposition home or self-care (01) ==
PROVIDERS: PCP Internal Medicine; Visit Provider Nurse Practitioner Family
DX: Z94.0 Kidney transplant status (principal); Z79.899 Other long term (current) drug therapy
CPT/HCPCS: 36415; 80053; 80197; 81003; 81015; 82465; 82565; 83735; 84100; 84156; 84550; 85025

== ENCOUNTER 2024-09-27 03:30 | Outpatient (CLI) | payer MEDICARE, BC, SELFPAY ==
[2024-09-27 09:45] LABS: Abs Immature Grans 0.04 10^3/uL (0.0-0.06); Absolute Basophil Count 0.05 10^3/uL (0.0-0.2); Absolute Eosinophil Count 0.34 10^3/uL (0.0-0.7); Absolute Lymphocyte Count 1.09 10^3/uL (1.2-3.4); Absolute Neutrophil Count 5.63 10^3/uL (1.2-6.7); Basophils % 0.6 %; Eosinophils % 4.1 %; HCT 36.4 % (36.0-46.0); HGB 11.9 g/dL (11.2-15.7); Immature Grans % 0.5 %; Lymphocytes % 13.2 %; MCH 30.4 pg (27.0-33.0); MCHC 32.7 % (32.0-36.0); MCV 93 fL (80-95); MPV 8.6 fL (8.0-11.0); Monocytes % 13.3 %; Neutrophils % 68.3 %; Platelet Count 315 10^3/uL (130-400); RBC 3.92 10^6/uL (3.93-5.22); RDW 14.6 % (11.7-14.6); RDW-SD 49.7 fL; WBC 8.25 10^3/uL (4.4-10.8)
[2024-09-27 09:49] LABS: Reticulocyte 1.1 % (0.5-2.4)
[2024-09-27 10:16] LABS: Bilirubin Negative (Negative); Blood Trace-intact (Negative); Clarity Clear (Clear); Glucose Negative (Negative); Ketones Negative (Negative); Leukocyte Esterase Negative (Negative); Nitrite Negative (Negative); Urobilinogen 0.2 mg/dL (Up to 0.2)
[2024-09-27 10:24] LABS: COMMENT (LAB VIEW ONLY) 30.82 mg/dL; PROTEIN 19.4 mg/dL; Prot/Crea Ur Ratio 0.62
[2024-09-27 10:27] LABS: Bacteria Rare HPF (Negative); C & S Indicated? No; Casts Negative LPF (Negative); Crystals Negative HPF (Negative); Epithelial Cells Rare HPF (Negative); Mucus Negative (Negative); Other Cells Negative (Negative); WBC Negative HPF (0-5)
[2024-09-27 10:30] LABS: ALT 14 U/L (14-59); AST 19 U/L (15-37); Albumin 3.4 g/dL (3.4-5.0); Alkaline Phosphatase 76 U/L (46-116); Anion Gap 9.2 mmol/L (3-11); BUN 51 mg/dL (7-18); Bilirubin, Total 0.5 mg/dL (0.2-1.0); CO2 23.8 mmol/L (21.0-32.0); Chloride 102 mmol/L (98-107); Glucose 89 mg/dL (74-106); Potassium 5.6 mmol/L (3.5-5.1); Sodium 135 mmol/L (136-145); Total Protein 7.9 g/dL (6.4-8.2)
[2024-09-27 10:32] LABS: Cholesterol 160 mg/dL (<200)
[2024-09-27 10:39] LABS: Magnesium 2.4 mg/dL (1.8-2.4); PHOSPHORUS 4.3 mg/dL (2.6-4.7); Uric Acid 5.1 mg/dL (2.6-6.0)
[2024-09-27 10:40] LABS: CREATININE 3.6 mg/dL (0.55-1.02)
[2024-09-27 19:00] LABS: Parathyroid Hormone,Intact 89 pg/mL (19-88)
[2024-09-28 11:35] LABS: Tacrolimus 3.9 ng/mL (See Note)
== END 2024-09-27 03:31 | disposition home or self-care (01) ==
PROVIDERS: PCP Internal Medicine; Visit Provider Nurse Practitioner Family
DX: Z79.60 Long term (current) use of unspecified immunomodulators and immunosuppressants (principal); Z94.0 Kidney transplant status; Z48.298 Encounter for aftercare following other organ transplant; T86.19 Other complication of kidney transplant
CPT/HCPCS: 36415; 80053; 80197; 81003; 81015; 82465; 82565; 83735; 83970; 84100; 84156; 84550; 85025; 85045; 87086

== ENCOUNTER 2024-11-02 01:00 | Outpatient (CLI) | payer MEDICARE, BC, SELFPAY ==
[2024-11-02 09:40] LABS: Abs Immature Grans 0.06 10^3/uL (0.0-0.06); HCT 35.4 % (36.0-46.0); HGB 11.4 g/dL (11.2-15.7); Immature Grans % 0.7 %; MCH 29.9 pg (27.0-33.0); MCHC 32.2 % (32.0-36.0); MCV 93 fL (80-95); MPV 8.3 fL (8.0-11.0); Platelet Count 279 10^3/uL (130-400); RBC 3.81 10^6/uL (3.93-5.22); RDW 15.2 % (11.7-14.6); RDW-SD 52.4 fL; WBC 8.97 10^3/uL (4.4-10.8)
[2024-11-02 09:47] LABS: Glucose Negative (Negative)
[2024-11-02 09:53] LABS: WBC >50 HPF (0-5)
[2024-11-02 09:54] LABS: C & S Indicated? Yes
[2024-11-02 09:55] LABS: Cholesterol 176 mg/dL (<200)
[2024-11-02 09:56] LABS: ALT 18 U/L (14-59); AST 21 U/L (15-37); Albumin 3.5 g/dL (3.4-5.0); Alkaline Phosphatase 73 U/L (46-116); Anion Gap 10.6 mmol/L (3-11); BUN 51 mg/dL (7-18); Bilirubin, Total 0.4 mg/dL (0.2-1.0); CO2 22.4 mmol/L (21.0-32.0); Calcium 9.9 mg/dL (8.5-10.1); Chloride 102 mmol/L (98-107); Estimated GFR 14.83 (mL/min/1.73m2); Glucose 90 mg/dL (74-106); Magnesium 2.2 mg/dL (1.8-2.4); Potassium 5.4 mmol/L (3.5-5.1); Sodium 135 mmol/L (136-145); Total Protein 7.9 g/dL (6.4-8.2); Uric Acid 4.9 mg/dL (2.6-6.0)
[2024-11-02 10:36] LABS: PROTEIN 23.8 mg/dL; Prot/Crea Ur Ratio 0.66
== END 2024-11-02 01:01 | disposition home or self-care (01) ==
LOC: LBO 01:00
PROVIDERS: PCP Internal Medicine; Visit Provider Internal Medicine Nephrology
DX: Z94.0 Kidney transplant status (principal); Z79.899 Other long term (current) drug therapy
CPT/HCPCS: 36415; 80053; 87077; 80197; 81003; 81015; 82465; 82565; 83735; 84100; 84156; 84550; 85025; 87086; 87186

== ENCOUNTER 2024-12-05 04:15 | Outpatient (CLI) | payer MEDICARE, BC, SELFPAY ==
[2024-12-05 09:15] LABS: Abs Immature Grans 0.03 10^3/uL (0.0-0.06); HCT 36.0 % (36.0-46.0); HGB 11.7 g/dL (11.2-15.7); Immature Grans % 0.4 %; MCH 30.7 pg (27.0-33.0); MCHC 32.5 % (32.0-36.0); MCV 95 fL (80-95); MPV 8.5 fL (8.0-11.0); Platelet Count 268 10^3/uL (130-400); RBC 3.81 10^6/uL (3.93-5.22); RDW 14.6 % (11.7-14.6); RDW-SD 51.2 fL; WBC 7.16 10^3/uL (4.4-10.8)
[2024-12-05 09:35] LABS: Glucose Negative (Negative)
[2024-12-05 10:06] LABS: ALT 17 U/L (14-59); AST 22 U/L (15-37); Albumin 3.5 g/dL (3.4-5.0); Alkaline Phosphatase 63 U/L (46-116); Anion Gap 6.6 mmol/L (3-11); BUN 48 mg/dL (7-18); Bilirubin, Total 0.5 mg/dL (0.2-1.0); CO2 25.4 mmol/L (21.0-32.0); Calcium 9.7 mg/dL (8.5-10.1); Chloride 102 mmol/L (98-107); Estimated GFR 16.76 (mL/min/1.73m2); Glucose 76 mg/dL (74-106); Magnesium 2.3 mg/dL (1.8-2.4); Potassium 5.3 mmol/L (3.5-5.1); Sodium 134 mmol/L (136-145); Total Protein 7.5 g/dL (6.4-8.2); Uric Acid 5.2 mg/dL (2.6-6.0)
[2024-12-05 11:24] LABS: Cholesterol 191 mg/dL (<200)
[2024-12-06 17:11] LABS: PROTEIN 15.8 mg/dL; Prot/Crea Ur Ratio 0.40
== END 2024-12-05 04:16 | disposition home or self-care (01) ==
LOC: LBO 04:15
PROVIDERS: PCP Internal Medicine; Visit Provider Internal Medicine Nephrology
DX: Z94.0 Kidney transplant status (principal); Z79.899 Other long term (current) drug therapy
CPT/HCPCS: 36415; 80053; 80197; 81003; 82465; 82565; 83735; 84100; 84156; 84550; 85025

== ENCOUNTER 2025-01-03 04:20 | Outpatient (CLI) | payer MEDICARE, BC, SELFPAY ==
[2025-01-03 09:09] LABS: Abs Immature Grans 0.02 10^3/uL (0.0-0.06); HCT 36.5 % (36.0-46.0); HGB 11.6 g/dL (11.2-15.7); Immature Grans % 0.3 %; MCH 30.2 pg (27.0-33.0); MCHC 31.8 % (32.0-36.0); MCV 95 fL (80-95); MPV 8.4 fL (8.0-11.0); Platelet Count 261 10^3/uL (130-400); RBC 3.84 10^6/uL (3.93-5.22); RDW 13.5 % (11.7-14.6); RDW-SD 47.5 fL; WBC 6.86 10^3/uL (4.4-10.8)
[2025-01-03 09:12] LABS: Glucose Negative (Negative)
[2025-01-03 09:50] LABS: Cholesterol 186 mg/dL (<200)
[2025-01-03 09:50] LABS: PROTEIN 9.7 mg/dL; Prot/Crea Ur Ratio 0.31
[2025-01-03 09:51] LABS: ALT 18 U/L (14-59); AST 23 U/L (15-37); Albumin 3.7 g/dL (3.4-5.0); Alkaline Phosphatase 77 U/L (46-116); Anion Gap 5.7 mmol/L (3-11); BUN 44 mg/dL (7-18); Bilirubin, Total 0.4 mg/dL (0.2-1.0); CO2 27.3 mmol/L (21.0-32.0); Calcium 10.1 mg/dL (8.5-10.1); Chloride 102 mmol/L (98-107); Estimated GFR 19.20 (mL/min/1.73m2); Glucose 101 mg/dL (74-106); Magnesium 2.0 mg/dL (1.8-2.4); Potassium 5.2 mmol/L (3.5-5.1); Sodium 135 mmol/L (136-145); Total Protein 8.0 g/dL (6.4-8.2); Uric Acid 5.1 mg/dL (2.6-6.0)
== END 2025-01-03 04:21 | disposition home or self-care (01) ==
PROVIDERS: PCP Internal Medicine; Visit Provider Nurse Practitioner Family
DX: Z94.0 Kidney transplant status (principal)
CPT/HCPCS: 36415; 80053; 80061; 80197; 81003; 82465; 82565; 83735; 84100; 84156; 84550; 85025

== ENCOUNTER 2025-01-07 00:06 | Outpatient (CLI) | payer MEDICARE, BC, SELFPAY ==
--- NOTE | 2025-01-07 06:15 | DI.US_ITS ---
Exam(s) US PELVIS TRANSVAGINAL EXAM: US PELVIS TRANSVAGINAL CLINICAL HISTORY: check stripe,postmenopausal bleeding. TECHNIQUE: Transabdominal and transvaginal pelvic ultrasound was performed using standard protocol. COMPARISON: No exams were available for comparison FINDINGS: UTERUS: Position: Anteverted. Size: 4.3 long by 2.0 AP by 3.4 transverse cm Endometrium: 0.4 cm. Normal for patient's menstrual status. Myometrium: The myometrium is heterogeneous with at least 2 discrete myometrial masses consistent with fibroids. The largest measures 1.8 x 1.2 x 1.4 cm. Cervix: Unremarkable. OVARIES: Right: 1.4 x 0.5 x 0.9 cm Cyst or mass: No suspicious cystic or solid masses. Left: 1.8 x 0.5 x 1.8 cm Cyst or mass: No suspicious cystic or solid masses. CUL-DE-SAC: Free fluid: None. Other: None. IMPRESSION: 1. Endometrial stripe is within normal limits in this postmenopausal patient. 2. Uterine fibroids. 3. Unremarkable bilateral ovaries. DATA REPOSITORY:
--- NOTE | 2025-01-07 06:15 | DI.MAMMO_ITS ---
Exam(s) MAMMO SCREENING EXAM: MAMMO SCREENING CLINICAL HISTORY: screening,z12.39 TECHNIQUE: Bilateral full field digital CC and MLO mammographic images were obtained with 3D tomosynthesis and utilizing computer aided detection (CAD). COMPARISON: Comparison is made with prior examinations. FINDINGS: Masses/Architectural Distortion: No suspicious masses or areas of architectural distortion are present. Microcalcifications: No suspicious pleomorphic-type are seen. Skin Thickening/Nipple Retraction: None. IMPRESSION: 1. No significant interval change with no specific features of malignancy noted. 2. Unless there is more urgent need, screening mammography is recommended, as per [employer] [place] [employer] guidelines. BI-RADS Category 1 - Negative Breast Density - Category B - There are scattered areas of fibroglandular density. Breast density Category C or D implies that the patient has dense breast tissue. Dense breast tissue can make it harder to find cancer on a mammogram. Dense breast tissue is also associated with an increased risk of breast cancer. This information about the result of the mammogram report was provided to the patient to raise their awareness. Use this report when you speak with the patient about their risks for breast cancer, which includes their family history. At that time, you may recommend additional screening tests (Ultrasound or MRI) as these tests may add significant information. A negative radiographic report should not delay biopsy if a dominant or clinically suspicious mass is present. Up to ten percent of cancers are not identified on mammography. A negative report may reinforce clinical impression. Adenosis and dense breasts may obscure an underlying neoplasm. False positive reports average 6 to 10%. Patient will receive a letter notifying them of these results.
== END 2025-01-07 00:26 ==
LOC: DI 00:07
PROVIDERS: PCP Internal Medicine; Visit Provider Obstetrics & Gynecology
DX: Z12.31 Encounter for screening mammogram for malignant neoplasm of breast (principal); N95.0 Postmenopausal bleeding
CPT/HCPCS: 77063; 77067; 76830; 76856

== ENCOUNTER 2025-02-18 03:13 | Outpatient (CLI) | payer MEDICARE, BC, SELFPAY ==
[2025-02-18 09:40] LABS: Abs Immature Grans 0.06 10^3/uL (0.0-0.06); HCT 36.8 % (36.0-46.0); HGB 11.8 g/dL (11.2-15.7); Immature Grans % 0.8 %; MCH 30.4 pg (27.0-33.0); MCHC 32.1 % (32.0-36.0); MCV 95 fL (80-95); MPV 8.0 fL (8.0-11.0); Platelet Count 441 10^3/uL (130-400); RBC 3.88 10^6/uL (3.93-5.22); RDW 13.4 % (11.7-14.6); RDW-SD 46.2 fL; WBC 7.34 10^3/uL (4.4-10.8)
[2025-02-18 09:48] LABS: Glucose Negative (Negative)
[2025-02-18 10:02] LABS: PROTEIN 20.7 mg/dL; Prot/Crea Ur Ratio 0.35
[2025-02-18 10:06] LABS: Cholesterol 198 mg/dL (<200)
[2025-02-18 10:07] LABS: ALT 18 U/L (14-59); AST 22 U/L (15-37); Albumin 3.1 g/dL (3.4-5.0); Alkaline Phosphatase 99 U/L (46-116); Anion Gap 10.0 mmol/L (3-11); BUN 38 mg/dL (7-18); Bilirubin, Total 0.4 mg/dL (0.2-1.0); CO2 26.0 mmol/L (21.0-32.0); Calcium 10.3 mg/dL (8.5-10.1); Chloride 100 mmol/L (98-107); Estimated GFR 22.39 (mL/min/1.73m2); Glucose 89 mg/dL (74-106); Magnesium 1.8 mg/dL (1.8-2.4); Potassium 4.7 mmol/L (3.5-5.1); Sodium 136 mmol/L (136-145); Total Protein 8.1 g/dL (6.4-8.2); Uric Acid 5.9 mg/dL (2.6-6.0)
[2025-02-18 10:07] LABS: C & S Indicated? No; RBC 0-2 HPF (0-2)
== END 2025-02-18 03:14 | disposition home or self-care (01) ==
LOC: LBO 03:13
PROVIDERS: Nurse Practitioner Family; PCP Internal Medicine; Visit Provider Internal Medicine Nephrology
DX: Z94.0 Kidney transplant status (principal)
CPT/HCPCS: 36415; 80053; 82310; 80197; 81003; 81015; 82465; 82565; 83735; 84100; 84156; 84550; 85025; 86664; 86665

== ENCOUNTER 2025-03-25 04:21 | Outpatient (CLI) | payer MEDICARE, BC, SELFPAY ==
[2025-03-25 10:07] LABS: Abs Immature Grans 0.01 10^3/uL (0.0-0.06); HCT 36.8 % (36.0-46.0); HGB 11.9 g/dL (11.2-15.7); Immature Grans % 0.2 %; MCH 30.1 pg (27.0-33.0); MCHC 32.3 % (32.0-36.0); MCV 93 fL (80-95); MPV 8.4 fL (8.0-11.0); Platelet Count 238 10^3/uL (130-400); RBC 3.95 10^6/uL (3.93-5.22); RDW 14.1 % (11.7-14.6); RDW-SD 48.9 fL; WBC 5.05 10^3/uL (4.4-10.8)
[2025-03-25 10:08] LABS: Glucose Negative (Negative)
[2025-03-25 10:16] LABS: C & S Indicated? No
[2025-03-25 10:23] LABS: Hemoglobin A1C 5.4 % (<5.7)
[2025-03-25 10:25] LABS: Creatinine,Urine 39.3 mg/dL; Prot/Crea Ur Ratio 0.32 mg/mg Cr
[2025-03-25 10:39] LABS: Magnesium 1.8 mg/dL (1.6-2.6)
[2025-03-25 10:47] LABS: ALT 14 U/L (10-49); AST 26 U/L (<34); Albumin 4.1 g/dL (3.2-5.0); Alkaline Phosphatase 71 U/L (46-116); Anion Gap 6.3 mmol/L (3-11); BUN 43 mg/dL (9-23); Bilirubin, Total 0.50 mg/dL (0.2-1.2); CO2 26.7 mmol/L (20.0-31.0); Calcium 9.9 mg/dL (8.3-10.6); Chloride 106 mmol/L (98-107); Cholesterol 174 mg/dL (<200); Glucose 76 mg/dL (74-106); HDL Cholesterol 65 mg/dL (>40); Potassium 4.8 mmol/L (3.5-5.1); Sodium 139 mmol/L (136-145); Total Protein 7.6 g/dL (5.7-8.2)
[2025-03-25 10:48] LABS: Uric Acid 6.1 mg/dL (3.1-7.8)
[2025-03-25 10:59] LABS: Vitamin D 25 Total 61 ng/mL (30-100)
[2025-03-27 10:51] LABS: VCA IgG Positive (Negative); VCA IgM Negative (Negative)
[2025-03-27 16:54] LABS: Calcium, Random Ur 6 mg/dL; Creatinine, Random Ur 40 mg/dL (16 - 326)
[2025-03-30 10:48] LABS: 25-Hydroxy D Total 74 ng/mL
== END 2025-03-25 04:22 | disposition home or self-care (01) ==
LOC: LBO 04:21
PROVIDERS: PCP Internal Medicine; Visit Provider Internal Medicine Nephrology
DX: Z94.0 Kidney transplant status (principal); R79.9 Abnormal finding of blood chemistry, unspecified; E55.9 Vitamin D deficiency, unspecified; T86.19 Other complication of kidney transplant; Z79.60 Long term (current) use of unspecified immunomodulators and immunosuppressants
CPT/HCPCS: 36415; 80053; 80061; 82306; 82310; 83735; 80197; 81003; 81015; 82565; 83036; 83970; 84100; 84105; 84156; 84550; 85025; 85045; 86664; 86665; 87497; 87799